=== PATIENT | male | born 1960 | race Caucasian/White ===

== ENCOUNTER 2022-01-20 15:34 | Emergency (ER) | payer BC, SELFPAY ==
[2022-01-20] VITALS (8 sets, daily range): BP systolic 108–151; BP diastolic 56–107; PULSE 83–89; RESP 16–20; TEMP 36.7; O2SAT 95–99; BMI 27.1
--- NOTE | 2022-01-20 15:57 | EKG12_ITS ---
Test Reason : sob Blood Pressure : / mmHG Vent. Rate : 100 BPM Atrial Rate : 100 BPM P-R Int : 154 ms QRS Dur : 082 ms QT Int : 398 ms P-R-T Axes : 067 061 048 degrees QTc Int : 513 ms Normal sinus rhythm Right atrial enlargement (POSSIBLE) Prolonged QT Abnormal ECG Confirmed by KIARRA MOYER, REHANA ([id number]), general expeditor TIM FULLER ([id number]) on 01/21/2022 10:40:33 AM Referred By: Sherley Confirmed By:REHANA PLUNKETT MD
--- NOTE | 2022-01-20 15:59 | EDS_ITS ---
HPI History of Present Illness Chief Complaint: Shortness of Breath Informant: patient and spouse/S.O. Narrative Narrative: Patient sent from urgent care reported pneumonia. He was not hypoxic. Patient reports having dyspnea worsening since Thursday. Mild cough. Since Thursday having chills and sweats. Also having headaches. He had nausea and vomiting episode however states has dentures and may have gagged himself. No diarrhea. No urinary symptoms. 1 pack/day smoker. No diagnosed COPD or asthma. Using Tylenol alternating with ibuprofen last medicine was ibuprofen at 11 PM. Feeling chills currently. Reported had a chest x-ray noting large pneumonia therefore sent here. No COVID testing obtained. He denies any past medical history. [facility] Home Medications cefdinir 300 mg capsule 300 mg PO BID #13 caps 01/20/22 [Rx Last Taken Unknown] Allergy/AdvReac Type Severity Reaction Status Date / Time erythromycin base Allergy Rash Verified 01/20/22 15:36 [Erythromycin Base] Social History Smoking Status: Former smoker ROS ROS ED Constitutional Constitutional ED: Reports chills and sweats; Denies fever(s) Eyes Eyes: Denies change in vision ENT ENT ED: Denies dysphagia or sore throat Cardiovascular Cardiovascular: Denies chest pain, leg edema, palpitations or racing heartbeat Respiratory/Chest Respiratory/Chest: Reports cough and dyspnea; Denies dyspnea on exertion Gastrointestinal Gastrointestinal: Denies abdominal pain, diarrhea, nausea or vomiting Genitourinary Genitourinary ED: Denies dysuria, hematuria or urinary frequency Musculoskeletal Musculoskeletal: Denies back pain, extremity pain or neck pain Integumentary Denies rash or wounds Neurologic Neurologic: Denies headache(s), paresthesias or weakness EXAM Physical Exam Const Vital Signs: 01/20/22 15:37 01/20/22 15:40 01/20/22 15:54 Temperature 98.1 F 98.1 F Temperature Source Temporal Temporal Pulse Rate 83 83 Respiratory Rate 16 16 Respiratory Effort Short of Breath Respiratory Depth Normal Respiratory Pattern Normal Blood Pressure 151/107 H 151/107 H Blood Pressure Mean 121 Pulse Ox 97 97 Oxygen Delivery Method Room Air Room Air Room Air 01/20/22 16:36 01/20/22 17:00 01/20/22 16:40 Temperature 98.1 F Temperature Source Temporal Pulse Rate 85 86 86 Respiratory Rate 20 H 16 16 Respiratory Effort Respiratory Depth Respiratory Pattern Blood Pressure 111/56 L 115/64 115/64 Blood Pressure Mean 74 81 Pulse Ox 95 95 95 Oxygen Delivery Method Room Air Room Air Room Air 01/20/22 17:36 Temperature Temperature Source Pulse Rate 89 Respiratory Rate 16 Respiratory Effort Respiratory Depth Respiratory Pattern Blood Pressure 108/65 Blood Pressure Mean Pulse Ox 99 Oxygen Delivery Method Positive well nourished and well developed Constitutional Narrative: Nontoxic, shivering General Appearance ED: well developed and NAD HEENT Reports moist mucous membranes normocephalic and atraumatic Eyes PERRL, EOMs intact bilaterally and conjunctivae normal General Eye ED: Yes normal appearance of both eyes Neck no lymphadenopathy and supple General: Negative for tenderness Chest Wall Chest: Negative for tenderness Resp normal respiratory effort and normal air movement Effort and Inspection: symmetric chest movement; Negative for respiratory distress Cardio regular rate, regular rhythm and no murmurs Peripheral Pulses: pulses 2+ throughout GI normal to inspection, nondistended, normoactive bowel sounds and non-tender Palpation: Negative for guarding or rebound tenderness present Back/Spine no CVA tenderness and no thoracic nor lumbar tenderness Extremity normal to inspection General Extremety ED: Negative for edema or tenderness General Extremity: Negative for edema Neuro oriented x3 and no sensory deficits noted Sensorium / Orientation: awake and alert Skin no rashes or lesions noted and no wounds MDM MDM MDM Narrative Medical decision making narrative: Patient noted slight shivering, nontoxic pulse ox stable afebrile no respiratory distress. I did check labs due to his symptoms white count 13.7. Sodium 129, creatinine 1.39. Chest x-ray reviewed by myself and read by radiology notes a left upper lobe pneumonia. COVID testing returned negative. Clinically stable. He is started on Omnicef twice a day for 7 days. Return precautions. Lab Data Attestation: I reviewed the patient's lab results. Labs: Laboratory Results - last 24 hr 01/20/22 01/20/22 16:07 16:07 WBC 13.7 H RBC 4.90 Hgb 14.9 Hct 42.8 MCV 87.3 MCH 30.4 MCHC 34.8 RDW Std Deviation 42.4 RDW Coeff of Enriqueta 13.2 Plt Count 139 L MPV 9.9 Immature Gran % (Auto) 0.800 Neut % (Auto) 79.1 H Lymph % (Auto) 11.0 L [place] % (Auto) 8.9 Eos % (Auto) 0.0 Baso % (Auto) 0.2 Absolute Neuts (auto) 10.9 H Absolute Lymphs (auto) 1.51 Nucleated RBC % 0 Sodium 129 L Potassium 4.3 Chloride 95 L Carbon Dioxide 25.0 Anion Gap 9 BUN 20 H Creatinine 1.39 H Estim Creat Clear Calc 62.03 Est GFR (MDRD) Af Amer 67 Est GFR (MDRD) Non-Af 55 L BUN/Creatinine Ratio 14.4 Glucose 106 Calcium 9.5 Troponin I High Sens 7 Radiography Diagnostic Testing: Clinical Impression(s) from Imaging Studies Chest X-Ray 01/20/22 16:10 IMPRESSION: Left upper lobe pneumonia. Electronically Signed: West Haines MD at 16:23 EDT , EKG Initial EKG: Attestation: I personally reviewed and interpreted this EKG as follows: Comments: Sinus rate of 100, no ST or T wave changes, artifact noted at baseline. Discharge Plan Triage Chief Complaint: Shortness of Breath ED Provider: Ochoa Lepe Dx/Rx/DC Orders Clinical Impression: Community acquired pneumonia, Tobacco dependence, Acute hyponatremia Instructions: ED Pneumonia (Adult) Prescriptions: New cefdinir 300 mg capsule 300 mg PO BID Qty: 13 0RF Primary Care Provider: Artie Alvarez Referrals: Artie Alvarez MD [Primary Care Provider] - 3-5 Days Activity Restrictions/Additional Instructions: MARCIAL pneumonia. covid and flu negative. take antibiotic as prescribed. return if any worsening respiratory symptoms. Disposition Disposition: Home, Self Care Discharge Date/Time: 01/20/22 17:36
[2022-01-20] MEDS: Acetaminophen 500 MG Tablet 1000 MG PO (16:01)
--- NOTE | 2022-01-20 16:10 | RAD_ITS ---
STUDY: X-RAY CHEST REASON FOR EXAM: Male, 61 years old. sob TECHNIQUE: Single AP portable view of the chest. COMPARISON: 05/27/2013 FINDINGS: Alveolar opacity in the upper left lung consistent with left upper lobe pneumonia. There is no demonstrated pleural abnormality. Normal size heart. Normal mediastinum and sergio. Normal visualized pulmonary arteries. Normal visualized aortic arch and descending thoracic aorta. Normal visualized thoracic spine. Normal visualized ribs, clavicles, and shoulders. There is no demonstrated abnormality of the visualized soft tissue structures of the upper abdomen. RAD/Chest 1 View (Portable) IMPRESSION: Left upper lobe pneumonia. Electronically Signed: West Haines MD at 16:23 EDT ,
[2022-01-20 16:14] LABS: Absolute Lymphocyte Count 1.51 X10^3/uL (0.83-4.51); Absolute Neutrophil Count 10.9 X10^3/uL (2.0-7.7); Basophil# 0.03 X10^3/uL; Basophil% 0.2 % (0-1); Hematocrit 42.8 % (40-54); Hemoglobin 14.9 g/dL (13.0-16.5); Lymphocyte # 1.51 X10^3/ul (0.83-4.51); Mean Corp Hgb Conc 34.8 g/dL (32-36); Mean Corpuscular Hgb 30.4 pg (27.0-32.0); Mean Corpuscular Volume 87.3 fL (80-94); Mean Platelet Vol. 9.9 fl (6.2-12.0); Monocyte# 1.22 X10^3/uL; Monocyte% 8.9 % (0-10); NRBC Flagged by Analyzer 0 % (0-5); Neutrophil # 10.87 X10^3/uL (2.7-7.7); Neutrophil % 79.1 % (47-70); Platelet Count 139 K/mm3 (150-450); RBC Distribution Width CV 13.2 % (11.6-14.6); RBC Distribution Width SD 42.4 fl (35.1-43.9); White Blood Count 13.7 K/mm3 (4.4-11.0)
[2022-01-20 16:39] LABS: Anion Gap 9 (5-15); BUN 20 mg/dL (7-18); BUN/Creat Ratio 14.4 RATIO (10-20); Calcium,Total 9.5 mg/dL (8.5-10.1); Chloride 95 mmol/L (98-107); Creatinine, Serum 1.39 mg/dL (0.70-1.30); EST Glomerular Filtration Rate 55 mL/min (>60); Est Glom Filt Rate - Afr Amer 67 mL/min (>60); Estimated Creatinine Clearance 62.03 ml/min; Glucose 106 mg/dL (74-106); Potassium 4.3 mmol/L (3.5-5.1); Sodium Level 129 mmol/L (136-145); Troponin-I HS (w/2H Reflex) 7 pg/mL (3.0-78.0)
[2022-01-20] MEDS: Cefdinir 300 MG Capsule PO (17:35)
[2022-01-20 18:11] LABS: Reflex Troponin-HS? (from REC) Y
== END 2022-01-20 17:36 | disposition home or self-care (01) ==
PROVIDERS: Emergency Provider Emergency Medicine; PCP Family Medicine; Visit Provider Emergency Medicine
DX: J18.9 Pneumonia, unspecified organism (principal); E87.1 Hypo-osmolality and hyponatremia; Z87.891 Personal history of nicotine dependence
CPT/HCPCS: 71045; 80048; 84484; 85025; 87428; 93005; 99285; A4216

== ENCOUNTER 2022-01-28 09:54 | Emergency (ER) | payer BC, SELFPAY ==
[2022-01-28 09:55] VITALS: BP 120/72; PULSE 78; RESP 18; TEMP 36.6; O2SAT 99; BMI 25.7
--- NOTE | 2022-01-28 10:41 | EKG12_ITS ---
Test Reason : Blood Pressure : / mmHG Vent. Rate : 062 BPM Atrial Rate : 062 BPM P-R Int : 154 ms QRS Dur : 094 ms QT Int : 438 ms P-R-T Axes : 060 045 012 degrees QTc Int : 444 ms Normal sinus rhythm Normal ECG Confirmed by KIARRA MOYER, REHANA ([id number]), newspaper editor NICOLE CLARK ([id number]) on 01/30/2022 12:48:59 PM Referred By: Leia Confirmed By:REHANA PLUNKETT MD
--- NOTE | 2022-01-28 10:42 | EX.ED.DYSGE1 ---
HPI History of Present Illness Chief Complaint: Shortness of Breath Informant: patient and spouse/S.O. Onset/Context/Timing Onset: Weeks (1.5) Context: Gradual Onset Timing: Continuous Quality: malaise/weak, cough, LOYA Current Severity: Moderate Maximum Severity: Moderate Worsened by: activity, exertion Relieved by: rest Associated Symptoms Associated Symptoms: myalgias, fevers, chills Narrative Narrative: Patient was seen here 1 week ago for this illness and diagnosed with pneumonia, he was put on an antibiotic, he states none of his symptoms are any better. He was going to try to follow-up with his PCP, however they said something about not being there for a while and not being able to see him. He is not dyspneic when he is at rest. He does have dyspnea with exertion and feels worn out with very little activity. Due to having fevers and chills throughout the day every day, the states she is concerned that he has been taking 1000 mg of Tylenol every 4 hours basically throughout the day every day. He denies any GI symptoms. They have noticed no jaundice. PFSH PFSH Medical History no medical history no medical history Home Medications cefdinir 300 mg capsule 300 mg PO BID #13 caps 01/20/22 [Rx Last Taken Unknown] levofloxacin 750 mg tablet 750 mg PO DAILY #4 tabs 01/28/22 [Rx Last Taken Unknown] Allergy/AdvReac Type Severity Reaction Status Date / Time erythromycin base Allergy Rash Verified 01/28/22 09:57 [Erythromycin Base] Social History Smoking Status: Former smoker ROS ROS ED Constitutional Constitutional ED: Reports chills, fever(s) and sweats Eyes Eyes: Denies change in vision or diplopia ENT ENT ED: Denies rhinorrhea or sore throat Cardiovascular Cardiovascular: Denies chest pain, orthopnea or palpitations Respiratory/Chest Respiratory/Chest: Reports cough and dyspnea on exertion; Denies orthopnea Gastrointestinal Gastrointestinal: Denies abdominal pain, diarrhea, nausea or vomiting Genitourinary Genitourinary ED: Denies dysuria or hematuria Musculoskeletal Musculoskeletal: Reports myalgias; Denies back pain or neck pain Integumentary Denies abscess or rash Neurologic Neurologic: Denies headache(s), paresthesias or weakness Psychiatric Psychiatric: Denies anxiety or suicidal thoughts EXAM Physical Exam Const Vital Signs: 01/28/22 09:55 01/28/22 10:30 01/28/22 11:06 Temperature 98 F Temperature Source Temporal Pulse Rate 78 Respiratory Rate 18 Respiratory Effort Normal Non-Labored Respiratory Depth Normal Respiratory Pattern Normal Blood Pressure 120/72 Blood Pressure Mean 88 Pulse Ox 99 Oxygen Delivery Method Room Air Room Air Room Air Positive well nourished and well developed Constitutional Narrative: Appears malaised but in no distress. Able to converse in full sentences. General Appearance ED: well developed and NAD HEENT Reports moist mucous membranes normocephalic and atraumatic Eyes PERRL and EOMs intact bilaterally Neck full ROM, no lymphadenopathy and supple Resp normal respiratory effort and clear to auscultation bilaterally Cardio regular rate, regular rhythm and no murmurs Rate: Negative for tachycardic GI non-tender and non-distended Auscultation: normoactive bowel sounds Palpation: soft Back/Spine no CVA tenderness General Back: other FROM Extremity normal to inspection General Extremety ED: Negative for edema, pulses abnormal or tenderness General Extremity: Negative for edema or pulses abnormal Neuro oriented x3, CN's II-XII intact bilaterally and no sensory deficits noted Sensorium / Orientation: awake and alert Motor Exam: strength 5/5 throughout Psych mental status grossly normal Skin no rashes or lesions noted and no wounds MDM MDM MDM Narrative Medical decision making narrative: Septic work-up performed on this gentleman, on my interpretation is 2 view chest x-ray shows worsening left-sided pneumonia, which the radiologist is in agreement with. Blood culture sent. His lactate and white blood count are within normal limits, his white count was elevated when he was diagnosed. Clearly the cefdinir is not doing the trick here. We ambulated him, he did extremely well and did not become very dyspneic nor did he become hypoxic, he basically did not go below 96% on room air. Offered admission but he declines and prefers to be treated at home as long as that is okay, I think placing him on Levaquin would be reasonable here to cover for a different spectrum of organisms including atypicals. He was given a dose of IV 750 in the ER and we will discharge him home for the next 4 days. Patient states that his old PCP will not see him anymore and he is asking for a new one so he was referred to the next physician on the unassigned list. Lab Data Attestation: I reviewed the patient's lab results. Labs: Laboratory Results - last 24 hr 01/28/22 01/28/22 01/28/22 10:15 10:15 10:55 WBC 9.7 RBC 4.01 L Hgb 12.2 L Hct 34.9 L MCV 87.0 MCH 30.4 MCHC 35.0 RDW Std Deviation 47.2 H RDW Coeff of Enriqueta 14.6 Plt Count 379 MPV 10.3 Immature Gran % (Auto) 1.000 H Neut % (Auto) 69.6 Lymph % (Auto) 21.7 [place] % (Auto) 6.7 Eos % (Auto) 0.7 Baso % (Auto) 0.3 Absolute Neuts (auto) 6.8 Absolute Lymphs (auto) 2.11 Nucleated RBC % 0 Sodium 134 L Potassium 3.4 L Chloride 101 Carbon Dioxide 26.0 Anion Gap 7 BUN 17 Creatinine 0.91 Estim Creat Clear Calc 94.75 Est GFR (MDRD) Af Amer 110 Est GFR (MDRD) Non-Af 91 BUN/Creatinine Ratio 18.8 Glucose 112 H Lactic Acid 1.3 Calcium 9.2 Total Bilirubin 1.80 H Direct Bilirubin 0.51 H AST 135 H ALT 152 H Alkaline Phosphatase 107 Troponin I High Sens 4 Total Protein 6.4 Albumin 2.4 L Globulin 4.0 Albumin/Globulin Ratio 0.6 L Radiography Chest X-Ray - ED: 2 View, Read by ED Physician and Left Infiltrate Diagnostic Testing: Clinical Impression(s) from Imaging Studies Chest X-Ray 01/28/22 11:00 IMPRESSION: Progressive left upper lobe infiltrate. Electronically Signed: Gideon Pompa MD at 11:14 EDT , Rhythm Strip Rhythm Strip: Sinus Rhythm Rate: 65 Ectopy: None EKG Initial EKG: Attestation: I personally reviewed and interpreted this EKG as follows: Interpretation: Sinus Rhythm and No Acute Injury Pattern Comments: normal EKG Discharge Plan Triage Chief Complaint: Shortness of Breath ED Provider: Trenton Dupree Dx/Rx/DC Orders Clinical Impression: Worsening pneumonia Instructions: ED Pneumonia (Adult) Prescriptions: New levofloxacin 750 mg tablet 750 mg PO DAILY Qty: 4 0RF Rx Instructions: start 01/29 No Action cefdinir 300 mg capsule 300 mg PO BID Qty: 13 0RF Primary Care Provider: Care Physician,No Primary Referrals: Nikita Melo DO [Med Staff - Call Worker] - 3-5 Days Disposition Disposition: Home, Self Care
[2022-01-28] MEDS: 0.9% Normal Saline 1,000 ML 150 ML IV (10:56)
[2022-01-28 10:59] LABS: Absolute Lymphocyte Count 2.11 X10^3/uL (0.83-4.51); Absolute Neutrophil Count 6.8 X10^3/uL (2.0-7.7); Basophil# 0.03 X10^3/uL; Basophil% 0.3 % (0-1); Eosinophil# 0.07 X10^3/uL; Eosinophils% 0.7 % (0-5); Hematocrit 34.9 % (40-54); Hemoglobin 12.2 g/dL (13.0-16.5); Lymphocyte # 2.11 X10^3/ul (0.83-4.51); Lymphocyte % 21.7 % (19-41); Mean Corpuscular Hgb 30.4 pg (27.0-32.0); Mean Platelet Vol. 10.3 fl (6.2-12.0); Monocyte# 0.65 X10^3/uL; Monocyte% 6.7 % (0-10); NRBC Flagged by Analyzer 0 % (0-5); Neutrophil # 6.77 X10^3/uL (2.7-7.7); Neutrophil % 69.6 % (47-70); Platelet Count 379 K/mm3 (150-450); RBC Distribution Width CV 14.6 % (11.6-14.6); RBC Distribution Width SD 47.2 fl (35.1-43.9); Red Blood Count 4.01 M/mm3 (4.6-6.2); White Blood Count 9.7 K/mm3 (4.4-11.0)
--- NOTE | 2022-01-28 11:00 | RAD_ITS ---
STUDY: X-RAY CHEST REASON FOR EXAM: Male, 61 years old. Check progression of pneumonia TECHNIQUE: PA and lateral views of the chest. COMPARISON: Comparison is made with prior study dated 01/20/2022. FINDINGS: EKG electrodes are seen. Since prior study, there has been progressive infiltration in the left upper lobe. The right lung is clear. There is no demonstrated pleural abnormality. Normal size heart. Normal mediastinum and sergio. Normal visualized pulmonary arteries. Normal visualized aortic arch and descending thoracic aorta. Normal visualized thoracic spine. Normal visualized ribs, clavicles, and shoulders. There is no demonstrated abnormality of the visualized soft tissue structures of the upper abdomen. RAD/Chest PA and Lateral IMPRESSION: Progressive left upper lobe infiltrate. Electronically Signed: Gideon Pompa MD at 11:14 EDT ,
[2022-01-28 11:29] LABS: ALB/GLOB Ratio 0.6 RATIO (0.9-2.4); AST(SGOT) 135 U/L (15-37); Alanine Aminotransfer ALT/SGPT 152 U/L (16-61); Albumin, Serum 2.4 g/dL (3.2-5.0); Alkaline Phosphatase 107 U/L (45-117); Anion Gap 7 (5-15); BUN 17 mg/dL (7-18); BUN/Creat Ratio 18.8 RATIO (10-20); Bilirubin, Direct 0.51 mg/dL (0.00-0.30); Calcium,Total 9.2 mg/dL (8.5-10.1); Chloride 101 mmol/L (98-107); Creatinine, Serum 0.91 mg/dL (0.70-1.30); EST Glomerular Filtration Rate 91 mL/min (>60); Est Glom Filt Rate - Afr Amer 110 mL/min (>60); Estimated Creatinine Clearance 94.75 ml/min; Glucose 112 mg/dL (74-106); Potassium 3.4 mmol/L (3.5-5.1); Protein, Total 6.4 g/dL (6.4-8.2); Sodium Level 134 mmol/L (136-145); Troponin-I HS 4 pg/mL (3.0-78.0)
[2022-01-28 11:43] LABS: Lactic Acid 1.3 mmol/L (0.4-1.9)
[2022-01-28 12:07] VITALS: O2SAT 99
[2022-01-28] MEDS: levoFLOXacin IV 750 MG/150 ML BAG 100 MG IV (12:20)
== END 2022-01-28 14:17 | disposition home or self-care (01) ==
PROVIDERS: Emergency Provider Emergency Medicine; Visit Provider Emergency Medicine
DX: J18.9 Pneumonia, unspecified organism (principal); Z87.891 Personal history of nicotine dependence
CPT/HCPCS: 71046; 80053; 80076; 83605; 84484; 85025; 87040; 87086; 93005; 96365; 96366; 99284; J7030; A4216

== ENCOUNTER 2022-02-16 19:54 | Observation (INO) | payer BC, SELFPAY ==
[2022-02-16] VITALS (9 sets, daily range): BP systolic 112–152; BP diastolic 44–77; PULSE 75–85; RESP 18–22; TEMP 36.6–37.1; O2SAT 93–99; BMI 26.8; BMI 26.7
--- NOTE | 2022-02-16 20:17 | EKG12_ITS ---
Test Reason : sob Blood Pressure : / mmHG Vent. Rate : 082 BPM Atrial Rate : 082 BPM P-R Int : 152 ms QRS Dur : 090 ms QT Int : 372 ms P-R-T Axes : 066 047 017 degrees QTc Int : 434 ms Poor data quality, interpretation may be adversely affected Normal sinus rhythm Normal ECG Confirmed by PAU MOYER, JENNIFER ([id number]), editor managing director NICOLE CLARK ([id number]) on 02/17/2022 2:01:32 PM Referred By: Confirmed By:JENNIFER MAI MD
--- NOTE | 2022-02-16 20:20 | EDS_ITS ---
HPI History of Present Illness Chief Complaint: Shortness of Breath Informant: patient and spouse/S.O. Onset/Context/Timing Onset: Days Context: Gradual Onset Narrative Narrative: Patient was recently treated with cefdinir followed by Levaquin for left-sided pneumonia. Patient states he was outside doing yard work yesterday. He became very fatigued last evening. Today's had increased shortness of breath and cough. He reports a temperature of 100.9 at home. He feels as if he is wheezing. He denies history of asthma or COPD. He was a smoker just quitting with his recent illness. PFSH PFS Medical History no medical history no medical history Home Medications NK 02/16/22 [History Last Taken Unknown] Allergy/AdvReac Type Severity Reaction Status Date / Time erythromycin base Allergy Rash Verified 02/16/22 19:58 [Erythromycin Base] Social History Smoking Status: Former smoker ROS ROS ED Constitutional Constitutional ED: Reports fever(s); Denies chills Eyes Eyes: Denies change in vision or discharge from eye(s) ENT ENT ED: Denies discharge from eye(s), rhinorrhea or sore throat Cardiovascular Cardiovascular: Reports chest pain; Denies palpitations Respiratory/Chest Respiratory/Chest: Reports cough, dyspnea and other Details: Wheezing Gastrointestinal Gastrointestinal: Denies abdominal pain, diarrhea, nausea or vomiting Genitourinary Genitourinary ED: Denies dysuria Musculoskeletal Musculoskeletal: Denies back pain or extremity pain Integumentary Denies Abrasions or rash Neurologic Neurologic: Denies headache(s) or weakness Psychiatric Psychiatric: Denies anxiety or depression Allergic/Immunologic Allergic/Immunologic ED: Denies lip swelling or urticaria EXAM Physical Exam Const Vital Signs: 02/16/22 19:55 02/16/22 20:03 02/16/22 21:26 Temperature 98 F Temperature Source Temporal Pulse Rate 83 83 Respiratory Rate 20 H 22 H Respiratory Effort Normal Respiratory Depth Normal Respiratory Pattern Normal Blood Pressure 152/77 H 113/59 L Blood Pressure Mean 102 77 Pulse Ox 99 95 Oxygen Delivery Method Room Air Room Air Positive well nourished and well developed General Appearance ED: well developed HEENT Reports normocephalic and head/scalp atraumatic Eyes PERRL and EOMs intact bilaterally Neck supple Chest Wall inspection of chest normal and palpation of chest normal Resp normal respiratory effort Resp Narrative: Expiratory wheezes with rhonchi. Cardio regular rate and regular rhythm GI normal to inspection, nondistended, normoactive bowel sounds Palpation: soft Extremity normal to inspection Neuro oriented x3 and no sensory deficits noted Sensorium / Orientation: alert Motor Exam: strength 5/5 throughout Psych mental status grossly normal Skin no rashes or lesions noted MDM MDM MDM Narrative Medical decision making narrative: Patient given Solu-Medrol along with aerosols. Lab work obtained, blood cultures, chest x-ray. Lab Data Attestation: I reviewed the patient's lab results. Labs: Laboratory Results - last 24 hr 02/16/22 02/16/22 20:32 20:32 WBC 12.1 H RBC 3.76 L Hgb 11.4 L Hct 34.6 L MCV 92.0 MCH 30.3 MCHC 32.9 RDW Std Deviation 54.5 H RDW Coeff of Enriqueta 16.1 H Plt Count 143 L MPV 9.3 Immature Gran % (Auto) 1.400 H Neut % (Auto) 64.6 Lymph % (Auto) 20.2 [place] % (Auto) 11.4 H Eos % (Auto) 2.0 Baso % (Auto) 0.4 Absolute Neuts (auto) 7.8 H Absolute Lymphs (auto) 2.44 Nucleated RBC % 0 Sodium 133 L Potassium 3.5 Chloride 100 Carbon Dioxide 27.0 Anion Gap 6 BUN 10 Creatinine 0.95 Estim Creat Clear Calc 90.76 Est GFR (MDRD) Af Amer 104 Est GFR (MDRD) Non-Af 86 BUN/Creatinine Ratio 10.5 Glucose 97 Calcium 8.1 L Radiography Chest X-Ray - ED: 1 View, Read by ED Physician and Left Infiltrate (Worsening left infiltrate compared to prior.) Diagnostic Testing: Clinical Impression(s) from Imaging Studies Chest X-Ray 02/16/22 20:41 IMPRESSION: Left upper lobe pneumonia. Electronically Signed: West Haines MD at 21:10 EDT , EKG Initial EKG: Attestation: I personally reviewed and interpreted this EKG as follows: Interpretation: Sinus Rhythm (Sinus at 82 with no acute ischemia.) Treatment and Re-Evaluation Narrative: Lab work reveals white count of 12.1 with no significant left shift. Chemistry studies reveal a sodium of 133 and bicarb of 27. Chest x-ray per my interpretation reveals worsening left-sided infiltrate. Radiology interpretation is reviewed and agrees. Blood cultures have been obtained. Patient is given Zosyn and vancomycin. He will require hospitalization for IV antibiotics. I will speak with the hospitalist. Discharge Plan Triage Chief Complaint: Shortness of Breath ED Provider: Bhumika Coronel Dx/Rx/DC Orders Clinical Impression: Pneumonia, Failure of outpatient treatment Prescriptions: No Action NK Primary Care Provider: Nikita Melo Referrals: Nikita Melo [Primary Care Provider] - Disposition Disposition: Acute Care Hospital [facility]
[2022-02-16] MEDS: MethylPREDNISolone 125 MG/2 ML Vial IV (20:39)
[2022-02-16 20:40] LABS: Absolute Lymphocyte Count 2.44 X10^3/uL (0.83-4.51); Absolute Neutrophil Count 7.8 X10^3/uL (2.0-7.7); Basophil# 0.05 X10^3/uL; Basophil% 0.4 % (0-1); Eosinophil# 0.24 X10^3/uL; Hematocrit 34.6 % (40-54); Hemoglobin 11.4 g/dL (13.0-16.5); Lymphocyte # 2.44 X10^3/ul (0.83-4.51); Lymphocyte % 20.2 % (19-41); Mean Corp Hgb Conc 32.9 g/dL (32-36); Mean Corpuscular Hgb 30.3 pg (27.0-32.0); Mean Platelet Vol. 9.3 fl (6.2-12.0); Monocyte# 1.38 X10^3/uL; Monocyte% 11.4 % (0-10); NRBC Flagged by Analyzer 0 % (0-5); Neutrophil % 64.6 % (47-70); Platelet Count 143 K/mm3 (150-450); RBC Distribution Width CV 16.1 % (11.6-14.6); RBC Distribution Width SD 54.5 fl (35.1-43.9); Red Blood Count 3.76 M/mm3 (4.6-6.2); White Blood Count 12.1 K/mm3 (4.4-11.0)
--- NOTE | 2022-02-16 20:41 | RAD_ITS ---
STUDY: X-RAY CHEST REASON FOR EXAM: Male, 61 years old. sob TECHNIQUE: Single AP portable view of the chest. COMPARISON: 01/28/2022 FINDINGS: Alveolar opacity in the upper left lung consistent with left upper lobe pneumonia. There is no demonstrated pleural abnormality. Normal size heart. Normal mediastinum and sergio. Normal visualized pulmonary arteries. Normal visualized aortic arch and descending thoracic aorta. Normal visualized thoracic spine. Normal visualized ribs, clavicles, and shoulders. There is no demonstrated abnormality of the visualized soft tissue structures of the upper abdomen. RAD/Chest 1 View (Portable) IMPRESSION: Left upper lobe pneumonia. Electronically Signed: West Haines MD at 21:10 EDT ,
[2022-02-16] MEDS: Albuterol 2.5 MG/3 ML VIAL.NEB. INHALATION ×2 (20:49)
[2022-02-16 20:54] LABS: Anion Gap 6 (5-15); BUN 10 mg/dL (7-18); BUN/Creat Ratio 10.5 RATIO (10-20); Calcium,Total 8.1 mg/dL (8.5-10.1); Chloride 100 mmol/L (98-107); Creatinine, Serum 0.95 mg/dL (0.70-1.30); EST Glomerular Filtration Rate 86 mL/min (>60); Est Glom Filt Rate - Afr Amer 104 mL/min (>60); Estimated Creatinine Clearance 90.76 ml/min; Glucose 97 mg/dL (74-106); Potassium 3.5 mmol/L (3.5-5.1); Sodium Level 133 mmol/L (136-145)
[2022-02-16] MEDS: Ipratropium/Albuterol Sulfate 3 ML AMPUL.NEB INHALATION (21:40)
--- NOTE | 2022-02-16 22:52 | PCM.HP.STD ---
[facility] - General General Date of Admission: 02/16/22 Date of Service: 02/16/22 Chief Complaint: Fever, cough, fatigue, dyspnea on exertion and wheezing for last 2 days. Recent episode of pneumonia in January. HPI Narrative TOMAS MCDERMOTT, is a 61 M who came to ED for shortness of breath on exertion, fatigue, fever and cough for last 2 days. His temperature at home was 100.9 Fahrenheit. Patient first came to ER on 01/20 and found to have left upper lobe pneumonia on chest x-ray with leukocytosis and was discharged on Omnicef for 7 days. Pneumonia did get better he came back on 01/28, and he was not hypoxic or dyspneic and was given Levaquin 750 mg IV and discharged for Levaquin 750 mg p.o. for 4 more days. Patient's symptoms of cough got better but acute yesterday started feeling feverish cough and wheezing. He said his fatigue never went away and he gets easily short of breath on lifting a small machine. 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 Patient is also feeling wheezing. He has a history of smoking, started at the age of 16, half pack per day but progressed to 2 packs/day in and then quit 3 weeks ago. He denies diagnosis of COPD/asthma. In ED, chest x-ray was done and is individually reviewed which shows worsening of left upper lobe pneumonia, interstitial type. Patient denies prior history of DVT/PE. Patient started on IV Rocephin and Zithromax and further admitted. [facility] Medical History Former smoker Medical History no medical history Home Medications NK 02/16/22 [History Last Taken Unknown] Allergy/AdvReac Type Severity Reaction Status Date / Time erythromycin base Allergy Rash Verified 02/16/22 19:58 [Erythromycin Base] Social History Smoking Status: Former smoker ROS ROS Narrative Constitutional: Reports fatigue and weakness. Mild fever HEENT: Reports systems reviewed and no addt'l complaints, except as documented Respiratory/Chest: Denies chest pain/pressure. Rest as mentioned in HPI Gastrointestinal: Denies coffee ground emesis, hematemesis or vomiting. No abdominal pain Genitourinary: Denies burning urination or new urinary tract symptoms Musculoskeletal: Denies joint pain and limited range of motion. No leg swelling Neurologic: Denies seizure-like activity skin: No ulcer. No rash Endocrinology: Reports systems reviewed and no addt'l complaints, except as documented Hematologic/Lymphatic: Reports systems reviewed and no addt'l complaints, except as documented Rest 14 ROS are negative except as mentioned in HPI Vital Signs Vital Signs Vital Signs: 02/16/22 19:55 02/16/22 20:03 02/16/22 21:26 Temperature 98 F Temperature Source Temporal Pulse Rate 83 83 Respiratory Rate 20 H 22 H Respiratory Effort Normal Respiratory Depth Normal Respiratory Pattern Normal Blood Pressure 152/77 H 113/59 L Blood Pressure Mean 102 77 Pulse Ox 99 95 Oxygen Delivery Method Room Air Room Air 02/16/22 22:39 Temperature 98.8 F Temperature Source Oral Pulse Rate 85 Respiratory Rate 22 H Respiratory Effort Respiratory Depth Respiratory Pattern Blood Pressure 112/44 L Blood Pressure Mean 66 Pulse Ox 93 Oxygen Delivery Method Room Air Weight Weight: 198 lb Body Mass Index (BMI) 26.8 Physical Exam Narrative General: Alert, Oriented x3, Cooperative HEENT: Atraumatic, PERRLA, EOMI, Normocephalic Oral: No Gingival or Mucosal Lesions/ Ulcerations Neck: Supple, No JVD, Negative Carotid Bruits Lungs: Air entry bilateral equal. Expiratory rhonchi and wheezing in left lung. Cardiovascular: Regular rate, Regular Rhythm, Normal S1, Normal S2, No murmurs Abdomen: Bowel Sounds Present, Soft, Non Tender, Non-Distended : No renal angle tenderness. No suprapubic tenderness. Extremities: No edema, Capillary Refill Less than 3 Seconds Skin: No rashes, No breakdown Musculoskeletal: No Tenderness to Palpation of Joints or Extremities Neurological: Cranial nerves II-XII grossly intact, DTR 2+/4 and Symmetrical, Neuro grossly intact Psych/Mental Status: Normal Affect, Appropriate. Results Lab / Micro Data Result Diagrams: 02/16/22 20:32 02/16/22 20:32 Labs: Laboratory Results - last 24 hr 02/16/22 20:32: WBC 12.1 H, RBC 3.76 L, Hgb 11.4 L, Hct 34.6 L, MCV 92.0, MCH 30.3, MCHC 32.9, RDW Std Deviation 54.5 H, RDW Coeff of Enriqueta 16.1 H, Plt Count 143 L, MPV 9.3, Immature Gran % (Auto) 1.400 H, Neut % (Auto) 64.6, Lymph % (Auto) 20.2, Harvey % (Auto) 11.4 H, Eos % (Auto) 2.0, Baso % (Auto) 0.4, Absolute Neuts (auto) 7.8 H, Absolute Lymphs (auto) 2.44, Nucleated RBC % 0 02/16/22 20:32: Sodium 133 L, Potassium 3.5, Chloride 100, Carbon Dioxide 27.0, Anion Gap 6, BUN 10, Creatinine 0.95, Estim Creat Clear Calc 90.76, Est GFR (MDRD) Af Amer 104, Est GFR (MDRD) Non-Af 86, BUN/Creatinine Ratio 10.5, Glucose 97, Calcium 8.1 L Micro: Microbiology 02/16/22 20:43 Nasal Secretion SARS-CoV-2 Antigen (Rapid) - Final Radiology Impression Chest X-Ray 02/16/22 20:41 IMPRESSION: Left upper lobe pneumonia. Electronically Signed: West Haines MD at 21:10 EDT , Assessment & Plan Assessment/Plan (1) Pneumonia: (2) Failure of outpatient treatment: PLAN: This is 61-year-old gentleman admitted with shortness of breath, fever, fatigue and cough and chest x-ray finding consistent with pneumonia and history suggestive of nonresolving pneumonia. Patient Has symptoms and signs and chest x-ray findings pneumonia for about 1 month. 1. None resolving left upper lobe pneumonia: Patient is being admitted on MedSurg floor. Not hypoxic or tachypneic. Patient has mild leukocytosis. Chest x-ray individually reviewed and shows worsening of pneumonic infiltrate mainly in left upper lobe lobe lung. CTPA chest is done looking for other differential diagnosis. As patient failed Omnicef, Levaquin is a started on IV vancomycin and Levaquin for consideration of possible MRSA and Pseudomonas. DuoNeb as needed for shortness of breath and wheezing. DuoNeb as needed, Mucinex, incentive spirometry and Pep. Liver chemistry ordered. Lactic acid, blood cultures x2, respiratory panel, , MRSA nasal screen, urinary antigens are ordered. COVID PCR ordered 2. Prolonged history of smoking: Chest x-ray from 01/20 reviewed and shows dense infiltrate in left upper lobe and worsening. Patient has about 60 pack years of smoking, about 2-pack-per day mother is working in . Suspicion for neoplastic lesion in left upper lobe. Never had PFT or pulmonary clinic follow-up 3. Denies coronary artery disease, stroke, peripheral artery disease, hypertension diabetes mellitus type 2 : Glucose 97 on BMP. VT prophylaxis: Lovenox 40 mg subcu daily. Discontinue if platelet count drops less than 50,000 or hemoglobin less than 8 g% Microbiology Past 72 Hours 02/16/22 20:43 Nasal Secretion SARS-CoV-2 Antigen (Rapid) - Final Laboratory Results 02/16/22 20:32: WBC 12.1 H, RBC 3.76 L, Hgb 11.4 L, Hct 34.6 L, MCV 92.0, MCH 30.3, MCHC 32.9, RDW Std Deviation 54.5 H, RDW Coeff of Enriqueta 16.1 H, Plt Count 143 L, MPV 9.3, Immature Gran % (Auto) 1.400 H, Neut % (Auto) 64.6, Lymph % (Auto) 20.2, Harvey % (Auto) 11.4 H, Eos % (Auto) 2.0, Baso % (Auto) 0.4, Absolute Neuts (auto) 7.8 H, Absolute Lymphs (auto) 2.44, Nucleated RBC % 0 02/16/22 20:32: Sodium 133 L, Potassium 3.5, Chloride 100, Carbon Dioxide 27.0, Anion Gap 6, BUN 10, Creatinine 0.95, Estim Creat Clear Calc 90.76, Est GFR (MDRD) Af Amer 104, Est GFR (MDRD) Non-Af 86, BUN/Creatinine Ratio 10.5, Glucose 97, Calcium 8.1 L 02/17/22 00:16: Phosphorus Pending, Magnesium Pending, Total Bilirubin Pending, Direct Bilirubin Pending, AST Pending, ALT Pending, Alkaline Phosphatase Pending, Total Protein Pending, Albumin Pending 02/17/22 00:16: Lactic Acid Pending 02/17/22 00:30: MRSA (PCR) Pending Clinical Impression(s) from Imaging Studies Chest X-Ray 02/16/22 20:41 IMPRESSION: Left upper lobe pneumonia. Electronically Signed: West Haines MD at 21:10 EDT , Charges/Coding Visit Charges OBSV E&M: 50524 Initial observation care L3 Procedures Hospitalists Procedures: 17314 Advncd Care Plan 30 Min
[2022-02-17] VITALS (14 sets, daily range): BP systolic 114–127; BP diastolic 53–65; PULSE 72–96; RESP 16–23; TEMP 36.4–36.6; O2SAT 91–98
[2022-02-17] MEDS: guaiFENesin 1,200 MG Tablet 1200 MG PO ×3 (00:44→20:55)
[2022-02-17] MEDS: 0.9% Normal Saline 1,000 ML 100 ML IV (00:44)
--- NOTE | 2022-02-17 00:49 | CT_ITS ---
STUDY: CTA CHEST REASON FOR EXAM: Male, 61 years old. suspected PE -- Non resolving pneumonia, MARCIAL, suspected Lung mass RADIATION DOSAGE (If Supplied By Facility): CTDIvol = ( 9.93 ) mGy, DLP = ( 479.23 ) mGycm TECHNIQUE: The examination was performed with the intravenous administration of IV 100mL Isovue-370. Post-processing of the angiographic images was performed, with multiplanar reformation and 3D reconstruction. Individualized dose optimization techniques were used for this CT. COMPARISON: None. FINDINGS: Normal enhancement of the main pulmonary artery and right and left pulmonary arteries. Normal enhancement of the bilateral peripheral pulmonary arteries. There is no demonstrated pulmonary embolism. There is atherosclerotic calcification of the aortic arch with tortuosity. There is no demonstrated aortic dissection. Normal heart and pericardium. Normal mediastinum. Normal hilar regions. Normal visualized trachea and bronchi. Extensive groundglass and airspace opacity involving the entire left upper lobe and lingular lobe with mild opacity in the left lower lobe compatible with multilobar pneumonia. There is superimposed atelectasis over the left lower lobe. There is mild biapical subpleural emphysema. Mild left pleural effusion. Normal chest wall structures. Mild spondylosis throughout the thoracic spine with possible mild osteopenic changes. Otherwise unremarkable bony structures. Normal visualized upper abdomen. CT/CTA Chest W/WO Contrast IMPRESSION: No pulmonary embolus or aortic dissection. Multilobar left-sided pneumonia with mild left pleural effusion. Superimposed left lower lobe atelectasis. Electronically Signed: Terra Rubin MD at 2:22 EDT ,
[2022-02-17 01:00] LABS: AST(SGOT) 13 U/L (15-37); Alanine Aminotransfer ALT/SGPT 18 U/L (16-61); Albumin, Serum 2.7 g/dL (3.2-5.0); Alkaline Phosphatase 79 U/L (45-117); Bilirubin, Direct 0.49 mg/dL (0.00-0.30); Globulin 3.4 g/dL (2.2-4.2); Phosphorus 2.5 mg/dL (2.5-4.9); Protein, Total 6.1 g/dL (6.4-8.2)
[2022-02-17 01:09] LABS: Lactic Acid 2.2 mmol/L (0.4-1.9)
--- NOTE | 2022-02-17 01:22 | CPS ---
Two Albuterol aerosols given at 2048
--- NOTE | 2022-02-17 01:24 | CPS ---
One Duoneb aerosol given at 2140
[2022-02-17 02:44] LABS: M R Staph aureus DNA By PCR Negative (Negative); Probe Check PASS; Specimen Processing Control PASS
[2022-02-17] MEDS: Ipratropium/Albuterol Sulfate 3 ML AMPUL.NEB INHALATION ×6 (03:19→22:33)
[2022-02-17 04:22] LABS: Reflex Lactate? Y
--- NOTE | 2022-02-17 05:35 | PCM.RX.CS ---
Consult Pharmacy has been consulted to manage selected antiobiotic: Vancomycin Type of Consult: New start Suspected Infection: Pneumonia Labs: Sodium 133 mmol/L (136-145) L 02/16/22 20:32 Potassium 3.5 mmol/L (3.5-5.1) 02/16/22 20:32 Chloride 100 mmol/L (98-107) 02/16/22 20:32 Carbon Dioxide 27.0 mmol/L (21.0-32.0) 02/16/22 20:32 Anion Gap 6 (5-15) 02/16/22 20:32 BUN 10 mg/dL (7-18) 02/16/22 20:32 Creatinine 0.95 mg/dL (0.70-1.30) 02/16/22 20:32 Est GFR (MDRD) Af Amer 104 mL/min (>60) 02/16/22 20:32 Est GFR (MDRD) Non-Af 86 mL/min (>60) 02/16/22 20:32 BUN/Creatinine Ratio 10.5 RATIO (10-20) 02/16/22 20:32 Glucose 97 mg/dL (74-106) 02/16/22 20:32 Microbiology: Microbiology 02/17/22 00:30 Interface Orders Legionella Antigen - Final 02/17/22 00:30 Interface Orders Streptococcus pneumoniae Antigen (M - Final 02/16/22 20:43 Nasal Secretion SARS-CoV-2 Antigen (Rapid) - Final Goal Trough: 15-20 mcg/mL Pharmacy Plan for Drug Dosing: Pharmacy Service will continue to monitor and adjust dosing as required. Medications Vancomycin HCl 1,750 mg/ (Sodium Chloride) 535 mls @ 250 mls/hr IV Q12H JOLEEN Discontinued Medications Vancomycin HCl 1,250 mg/ (Sodium Chloride) 275 mls @ 167 mls/hr IV X1 ONE Stop: 02/16/22 22:59 Last Admin: 02/17/22 00:22 Dose: Infused Follow-Up Labs: Trough Vancomycin Labs to be done on [date and time ordered]: 02/18 @ 0978
[2022-02-17 05:55] LABS: Absolute Lymphocyte Count 0.82 X10^3/uL (0.83-4.51); Absolute Neutrophil Count 7.3 X10^3/uL (2.0-7.7); Basophil# 0.01 X10^3/uL; Basophil% 0.1 % (0-1); Hematocrit 34.1 % (40-54); Hemoglobin 11.2 g/dL (13.0-16.5); Lymphocyte # 0.82 X10^3/ul (0.83-4.51); Lymphocyte % 9.6 % (19-41); Mean Corp Hgb Conc 32.8 g/dL (32-36); Mean Corpuscular Hgb 30.4 pg (27.0-32.0); Mean Corpuscular Volume 92.4 fL (80-94); Mean Platelet Vol. 9.9 fl (6.2-12.0); Monocyte# 0.29 X10^3/uL; Monocyte% 3.4 % (0-10); NRBC Flagged by Analyzer 0 % (0-5); Neutrophil # 7.27 X10^3/uL (2.7-7.7); Neutrophil % 85.5 % (47-70); Platelet Count 147 K/mm3 (150-450); RBC Distribution Width CV 15.9 % (11.6-14.6); RBC Distribution Width SD 53.9 fl (35.1-43.9); Red Blood Count 3.69 M/mm3 (4.6-6.2); White Blood Count 8.5 K/mm3 (4.4-11.0)
[2022-02-17 06:09] LABS: Anion Gap 7 (5-15); BUN 12 mg/dL (7-18); BUN/Creat Ratio 10.6 RATIO (10-20); Calcium,Total 8.7 mg/dL (8.5-10.1); Chloride 106 mmol/L (98-107); Creatinine, Serum 1.13 mg/dL (0.70-1.30); EST Glomerular Filtration Rate 70 mL/min (>60); Est Glom Filt Rate - Afr Amer 85 mL/min (>60); Glucose 209 mg/dL (74-106); Potassium 3.5 mmol/L (3.5-5.1); Sodium Level 136 mmol/L (136-145)
[2022-02-17] MEDS: Enoxaparin 40 MG/0.4 ML Syringe SC (09:10)
[2022-02-17 09:23] LABS: International Normalized Ratio 1.1; Prothrombin Time (Protime)PT. 14.1 SECONDS (11.7-14.9)
--- NOTE | 2022-02-17 09:54 | PN.HOSP_ITS ---
Subjective Subjective Follow-up on pneumonia, failed outpatient therapy: Patient was seen and examined. He stated that he felt much better. Denied any fever or chills. Still has a cough but not productive. Remains off oxygen. Objective Data Objective Data Vital Signs: Vital Signs Temp Pulse Resp BP Pulse Ox O2 Del Method 97.6 F L 75 16 121/62 H 91 Room Air 02/17/22 05:23 02/17/22 07:43 02/17/22 07:43 02/17/22 05:23 02/17/22 07:43 02/17/22 07:43 Oxygen Delivery Method Room Air Weight: 88.677 kg Body Mass Index (BMI) 26.7 Intake & Output: Intake and Output for Last 24 Hours 02/15/22 02/16/22 02/17/22 23:59 23:59 23:59 Intake Total 50 / 50 800 / 800 Balance 50 / 50 800 / 800 Lab / Micro Data Result Diagrams: 02/17/22 05:40 02/17/22 05:40 Labs: Laboratory Results - last 24 hr 02/16/22 20:32: WBC 12.1 H, RBC 3.76 L, Hgb 11.4 L, Hct 34.6 L, MCV 92.0, MCH 30.3, MCHC 32.9, RDW Std Deviation 54.5 H, RDW Coeff of Enriqueta 16.1 H, Plt Count 143 L, MPV 9.3, Immature Gran % (Auto) 1.400 H, Neut % (Auto) 64.6, Lymph % (Auto) 20.2, [place] % (Auto) 11.4 H, Eos % (Auto) 2.0, Baso % (Auto) 0.4, Absolute Neuts (auto) 7.8 H, Absolute Lymphs (auto) 2.44, Nucleated RBC % 0 02/16/22 20:32: Sodium 133 L, Potassium 3.5, Chloride 100, Carbon Dioxide 27.0, Anion Gap 6, BUN 10, Creatinine 0.95, Estim Creat Clear Calc 90.76, Est GFR (MDRD) Af Amer 104, Est GFR (MDRD) Non-Af 86, BUN/Creatinine Ratio 10.5, Glucose 97, Calcium 8.1 L 02/17/22 00:16: Phosphorus 2.5, Magnesium 2.0, Total Bilirubin 1.90 H, Direct Bilirubin 0.49 H, AST 13 L, ALT 18, Alkaline Phosphatase 79, Total Protein 6.1 L , Albumin 2.7 L, Globulin 3.4 02/17/22 00:16: Lactic Acid 2.2 H* 02/17/22 00:30: MRSA (PCR) Negative 02/17/22 00:48: COVID-19 (BRENDA) Not Detected 02/17/22 05:40: WBC 8.5, RBC 3.69 L, Hgb 11.2 L, Hct 34.1 L, MCV 92.4, MCH 30.4, MCHC 32.8, RDW Std Deviation 53.9 H, RDW Coeff of Enriqueta 15.9 H, Plt Count 147 L, MPV 9.9, Immature Gran % (Auto) 1.400 H, Neut % (Auto) 85.5 H, Lymph % (Auto) 9.6 L, [place] % (Auto) 3.4, Eos % (Auto) 0.0, Baso % (Auto) 0.1, Absolute Neuts (auto) 7.3, Absolute Lymphs (auto) 0.82 L, Nucleated RBC % 0 02/17/22 05:40: Sodium 136, Potassium 3.5, Chloride 106, Carbon Dioxide 23.0, Anion Gap 7, BUN 12, Creatinine 1.13, Estim Creat Clear Calc 76.30, Est GFR (MDRD) Af Amer 85, Est GFR (MDRD) Non-Af 70, BUN/Creatinine Ratio 10.6, Glucose 209 H, Calcium 8.7 02/17/22 05:40: Lactic Acid 4.0 H* 02/17/22 08:55: PT 14.1, INR 1.1 Micro: Microbiology 02/17/22 00:48 Mucosa - Nose Respiratory Panel (PCR) - Final 02/17/22 00:30 Interface Orders Legionella Antigen - Final 02/17/22 00:30 Interface Orders Streptococcus pneumoniae Antigen (M - Final 02/16/22 20:43 Nasal Secretion SARS-CoV-2 Antigen (Rapid) - Final Radiography Diagnostic Testing: Radiology Impression Chest X-Ray 02/16/22 20:41 IMPRESSION: Left upper lobe pneumonia. Electronically Signed: West Haines MD at 21:10 EDT , Chest CTA 02/17/22 00:49 IMPRESSION: No pulmonary embolus or aortic dissection. Multilobar left-sided pneumonia with mild left pleural effusion. Superimposed left lower lobe atelectasis. Electronically Signed: Terra Rubin MD at 2:22 EDT , Physical Exam Narrative Physical exam: General: Alert, Oriented x3, Cooperative, No apparent distress HEENT: Atraumatic Oral: Moist Mucosa Neck: Supple Lungs: Diminished to auscultation, coarse crackles heard in the upper lung zones Cardiovascular: HS I+II, regular, no murmurs Abdomen: Bowel Sounds Present, Soft, Non Tender Extremities: No edema Skin: No rashes, No breakdown Neurological: Grossly intact Psych/Mental Status: Appropriate Assessment & Plan Assessment/Plan (1) Pneumonia: (2) Failure of outpatient treatment: PLAN: Plan 1. Pneumonia, failed outpatient therapy Admitting chest x-ray shows a left upper lobe pneumonia. CTA of the chest shows multilobar left-sided pneumonia with mild left pleural effusion. WBC count improved from 12.1 to 8.5. Blood cultures are negative. Rapid COVID-19 test is negative. Urine Streptococcus and Legionella antigens are negative. Respiratory panel was negative. Continue on IV vancomycin and Zosyn We will consult pulmonology 2. DVT prophylaxis?Lovenox subcu Charges/Coding Visit Charges Inpatient E&M: 20939 Subs Hosp L2
[2022-02-17] MEDS: 0.9% Normal Saline 1,000 ML 125 ML IV (12:40)
--- NOTE | 2022-02-17 14:53 | CON.PCM.CC_ITS ---
Assessment & Plan Assessment/Plan (1) Pneumonia: (2) Failure of outpatient treatment: PLAN: Plan RECOMMENDATIONS: 1. Initiate steroids and wean over the next 12 to 14 days 2. Continue vancomycin and Zosyn for now 3. Obtain walking oximetry tomorrow 4. Potential discharge tomorrow if able to ambulate on room air with 7 days of Levaquin 5. Outpatient complete PFT and repeat chest x-ray in 4 to 6 weeks IMPRESSIONS: 1. Left-sided pneumonia Clinical suspicion for underlying obstructive lung disease, but this cannot be verified at this time. Patient significantly improved since yesterday. Antibiotics have been broadened and patient was given steroids. Unclear which is having the major factor. If patient is able to have a 6-minute walk tomorrow without significant desaturation, likely okay to discharge from a pulmonary perspective with outpatient follow-up. Patient will need a chest x- ray in 4 to 6 weeks to document resolution. Patient likely could be treated with Levaquin to complete antibiotic course. Low clinical suspicion for MRSA or Pseudomonas given nonproductive cough. Patient could be placed on Combivent as needed until further information is available. 2. Anemia Unclear etiology at this time. Anticipate if patient is having chronic hypoxia that this would be elevated. Patient does not have a significant change in MCV or MCH to suggest iron deficiency. Could complete a work-up as an outpatient. 3. Protracted smoking/poor primary visits/poor insight Complicates care, management, recovery and prognosis. Encourage continued smoking cessation. Did stressed to the patient that malignancy cannot be excluded and follow-up imaging will be necessary. Patient does appear to have poor insight into his health at this time. Patient likely would benefit from an outpatient PCP exam to evaluate other issues such as hypertension, peripheral artery disease and coronary artery disease. HPI Consult Data Date of Consult: 02/17/22 HPI Narrative Reason for Consultation: Pneumonia HPI Narrative: TOMAS MCDERMOTT is a 61 M, with past medical history listed below, who presents to [facility] on 02/16/2022 secondary persistence of shortness of breath. Patient had been seen in the ER earlier in the week and placed on cefdinir and sent home. Patient persisted in symptoms and reported a fever of 100.9 ?F, so came back for an evaluation. Patient did report significant wheezing, but does not carry a formal diagnosis of asthma or COPD. Patient did start smoking at age 16 and quit at the onset of this illness. In the ER, patient was afebrile, but hypertensive at 152/77. Patient was saturating well on room air, but tachypneic at 22 breaths/min. Laboratory work- up showed a white blood cell count of 12.1, hemoglobin of 11.4 and platelets of 143. Chemistry was relatively unremarkable. X-ray showed a left upper lobe pneumonia and a CTA of the chest showed no PE with significant left-sided infiltrates and a small pleural effusion. EKG showed sinus rhythm with tachycardia. Pancultures were ordered and the patient was given Zosyn and vancomycin. Patient was also given Solu-Medrol and admitted to the hospital for further evaluation. On my evaluation, patient reported a significant improvement in overall condition. Patient states he had significant paroxysmal type coughing prior to being admitted to the hospital. Patient states this is much improved. Patient is reporting hoarseness. Patient describes his cough as nonproductive throughout the hospital course. Patient states he did have bronchitis in August and has not felt the same since. Patient reports his health was great until August and everything has been falling apart since then. Patient has never seen a career center director or had pulmonary function test previously. Patient denies ever requiring steroids or inhalers, but readily admits that he does not see the doctor frequently. Patient has not reported any significant lower extremity edema. Patient has not had any left-sided trauma. Patient was in the in the past, but never reports being incarcerated or recent travel. Patient reports he has had x-rays previously that did not show any shadows. Review of systems otherwise negative from a constitutional, HEENT, respiratory, cardiovascular, GI, genitourinary, musculoskeletal, skin, neurologic, psychiatric and hematologic system unless stated above. PFSH Medical History Former smoker Medical History no medical history Home Medications NK 02/16/22 [History Last Taken Unknown] Allergy/AdvReac Type Severity Reaction Status Date / Time erythromycin base Allergy Rash Verified 02/16/22 19:58 [Erythromycin Base] Social History Smoking Status: Former smoker ROS ROS Narrative See HPI Physical Exam Const alert, oriented x3 and no apparent distress Constitutional Narrative: Appears older than stated age General Appearance: cooperative and well developed HEENT normocephalic, head/scalp atraumatic and moist oral mucous membranes HEENT Narrative: No oxygen in place. Eyes PERRL and EOMs intact bilaterally Neck full ROM and no lymphadenopathy Chest Chest: abnormal inspection of the chest increased A-P diameter Resp normal respiratory effort and no use of accessory muscles Resp Narrative: No conversational dyspnea at rest Effort and Inspection: prolonged expiratory phase Auscultation: diminished lung sounds; Negative for rales, rhonchi or wheezes Percussion: Negative for dullness Cardio regular rate, regular rhythm, S1 normal heart sound, S2 normal heart sound, no murmurs, no rub and no gallops GI normal to inspection, nondistended, normoactive bowel sounds no CVA tenderness Extremity no clubbing, cyanosis or edema Skin no rashes or lesions noted Neuro oriented x3, CN's II-XII intact bilaterally, moves all extremities and no focal motor deficits Psych cooperative and affect normal Lab / Micro Data Attestation: I reviewed the patient's lab results. Result Diagrams: 02/17/22 05:40 02/17/22 05:40 Labs: Laboratory Results - last 24 hr 02/16/22 20:32: WBC 12.1 H, RBC 3.76 L, Hgb 11.4 L, Hct 34.6 L, MCV 92.0, MCH 30.3, MCHC 32.9, RDW Std Deviation 54.5 H, RDW Coeff of Enriqueta 16.1 H, Plt Count 143 L, MPV 9.3, Immature Gran % (Auto) 1.400 H, Neut % (Auto) 64.6, Lymph % (Auto) 20.2, [place] % (Auto) 11.4 H, Eos % (Auto) 2.0, Baso % (Auto) 0.4, Absolute Neuts (auto) 7.8 H, Absolute Lymphs (auto) 2.44, Nucleated RBC % 0 02/16/22 20:32: Sodium 133 L, Potassium 3.5, Chloride 100, Carbon Dioxide 27.0, Anion Gap 6, BUN 10, Creatinine 0.95, Estim Creat Clear Calc 90.76, Est GFR (MDRD) Af Amer 104, Est GFR (MDRD) Non-Af 86, BUN/Creatinine Ratio 10.5, Glucose 97, Calcium 8.1 L 02/17/22 00:16: Phosphorus 2.5, Magnesium 2.0, Total Bilirubin 1.90 H, Direct Bilirubin 0.49 H, AST 13 L, ALT 18, Alkaline Phosphatase 79, Total Protein 6.1 L , Albumin 2.7 L, Globulin 3.4 02/17/22 00:16: Lactic Acid 2.2 H* 02/17/22 00:30: MRSA (PCR) Negative 02/17/22 00:48: COVID-19 (BRENDA) Not Detected 02/17/22 05:40: WBC 8.5, RBC 3.69 L, Hgb 11.2 L, Hct 34.1 L, MCV 92.4, MCH 30.4, MCHC 32.8, RDW Std Deviation 53.9 H, RDW Coeff of Enriqueta 15.9 H, Plt Count 147 L, MPV 9.9, Immature Gran % (Auto) 1.400 H, Neut % (Auto) 85.5 H, Lymph % (Auto) 9.6 L, [place] % (Auto) 3.4, Eos % (Auto) 0.0, Baso % (Auto) 0.1, Absolute Neuts (auto) 7.3, Absolute Lymphs (auto) 0.82 L, Nucleated RBC % 0 02/17/22 05:40: Sodium 136, Potassium 3.5, Chloride 106, Carbon Dioxide 23.0, Anion Gap 7, BUN 12, Creatinine 1.13, Estim Creat Clear Calc 76.30, Est GFR (MDRD) Af Amer 85, Est GFR (MDRD) Non-Af 70, BUN/Creatinine Ratio 10.6, Glucose 209 H, Calcium 8.7 02/17/22 05:40: Lactic Acid 4.0 H* 02/17/22 08:55: PT 14.1, INR 1.1 Micro: Microbiology 02/17/22 00:48 Mucosa - Nose Respiratory Panel (PCR) - Final 02/17/22 00:30 Interface Orders Legionella Antigen - Final 02/17/22 00:30 Interface Orders Streptococcus pneumoniae Antigen (M - Final 02/16/22 20:43 Nasal Secretion SARS-CoV-2 Antigen (Rapid) - Final Radiology Impression Chest X-Ray 02/16/22 20:41 IMPRESSION: Left upper lobe pneumonia. Electronically Signed: West Haines MD at 21:10 EDT , Chest CTA 02/17/22 00:49 IMPRESSION: No pulmonary embolus or aortic dissection. Multilobar left-sided pneumonia with mild left pleural effusion. Superimposed left lower lobe atelectasis. Electronically Signed: Terra Rubin MD at 2:22 EDT , Charges/Coding Visit Charges Inpatient E&M: 85006 Init Hosp L2
--- NOTE | 2022-02-17 15:20 | CHAPLAIN ---
Type of Pastoral Visit _x__ Initial Visit ___ Follow-up Visit ___ On-call Visit ___ General Patient Visit ___ Spiritual Assessment ___ Family Conference ___ Bereavement ___ Rapid Response ___ Code Blue ___ Other (describe below) Pastoral Care Referral From _x__ Patient ___ Family ___ Nurse ___ Physician ___ Manager Employee Relations ___ Sales Service Coordinator ___ Other (describe below) Sacrament/Intervention _x__ Active listening ___ Anointing ___ Taoism ___ Bereavement ___ Communion ___ Grace exploration ___ _x__ Life review _x__ Prayer ___ Reconciliation ___ Sacrament of Sick ___ Supportive presence ___ Wedding ___ Other (describe below) Pastoral Comments patient speaks of his struggle with health since the spring time and of the of his mother in the winter; pt states he has been healthy and had good life up until now; pt shares frustrations with inability to go back to work for awhile; pt welcomes presence and prayer; RT came at this time for breathing treatment
[2022-02-17] MEDS: predniSONE 20 MG Tablet 40 MG PO (16:30)
[2022-02-18] VITALS (7 sets, daily range): BP systolic 131; BP diastolic 58–66; PULSE 74–88; RESP 16–18; TEMP 36.4–36.5; O2SAT 91–98
[2022-02-18] MEDS: Ipratropium/Albuterol Sulfate 3 ML AMPUL.NEB INHALATION ×3 (03:06→11:49)
[2022-02-18] MEDS: guaiFENesin 1,200 MG Tablet 1200 MG PO (07:57)
[2022-02-18] MEDS: predniSONE 20 MG Tablet 40 MG PO (07:57)
[2022-02-18] MEDS: Enoxaparin 40 MG/0.4 ML Syringe SC (07:57)
--- NOTE | 2022-02-18 08:38 | PCM.PN.INT ---
Assessment & Plan Assessment/Plan (1) Pneumonia: (2) Failure of outpatient treatment: PLAN: Plan RECOMMENDATIONS: 1. Continue steroids and wean over the next 12 to 14 days 2. Continue vancomycin and Zosyn for now. Okay to discharge on Levaquin 3. Obtain walking oximetry tomorrow 4. Okay to discharge from a pulmonary perspective to complete 7 days of Levaquin 5. Outpatient complete PFT and repeat chest x-ray in 4 to 6 weeks 6. Follow-up in pulmonary office following chest x-ray in 4 weeks IMPRESSIONS: 1. Left-sided pneumonia Clinical suspicion for underlying obstructive lung disease, but this cannot be verified at this time. Patient improved since yesterday. Antibiotics have been broadened and patient was given steroids. Unclear which is having the major factor. Patient able to tolerate ambulation without requiring supplemental oxygen. Okay to discharge from a pulmonary perspective. Patient will need a chest x-ray in 4 to 6 weeks to document resolution. Patient likely could be treated with Levaquin to complete antibiotic course. Low clinical suspicion for MRSA or Pseudomonas given nonproductive cough. Patient could be placed on Combivent as needed until further information is available. 2. Anemia Unclear etiology at this time. Anticipate if patient is having chronic hypoxia that this would be elevated. Patient does not have a significant change in MCV or MCH to suggest iron deficiency. Could complete a work-up as an outpatient. 3. Protracted smoking/poor primary visits/poor insight Complicates care, management, recovery and prognosis. Encourage continued smoking cessation. Did stressed to the patient that malignancy cannot be excluded and follow-up imaging will be necessary. Patient does appear to have poor insight into his health at this time. Patient likely would benefit from an outpatient PCP exam to evaluate other issues such as hypertension, peripheral artery disease and coronary artery disease. Subjective Subjective Patient did well overnight. Patient feels subjectively improved compared to yesterday. Patient did have a walking oximetry this morning and reportedly did not require supplemental oxygen. Patient is not reporting any chest pain. Patient does have a cough, but feels this is improving. Objective Data Objective Data Vital Signs: Vital Signs Temp Pulse Resp BP Pulse Ox O2 Del Method 36.5 C L 88 16 131/66 H 97 Room Air 02/18/22 08:27 02/18/22 08:32 02/18/22 08:27 02/18/22 08:27 02/18/22 08:27 02/18/22 08:27 Oxygen Delivery Method Room Air Weight: 88.67 kg Body Mass Index (BMI) 26.7 Intake & Output: Intake and Output for Last 24 Hours 02/16/22 02/17/22 02/18/22 23:59 23:59 23:59 Intake Total 50 / 50 2851.04 / 2851.04 643.96 / 643.96 Balance 50 / 50 2851.04 / 2851.04 643.96 / 643.96 Lab / Micro Data Attestation: I reviewed the patient's lab results. Result Diagrams: 02/17/22 05:40 02/17/22 05:40 Labs: Laboratory Results - last 24 hr 02/17/22 08:55: PT 14.1, INR 1.1 Micro: Microbiology 02/17/22 00:48 Mucosa - Nose Respiratory Panel (PCR) - Final 02/17/22 00:30 Interface Orders Legionella Antigen - Final 02/17/22 00:30 Interface Orders Streptococcus pneumoniae Antigen (M - Final 02/16/22 20:43 Nasal Secretion SARS-CoV-2 Antigen (Rapid) - Final Physical Exam Const alert, oriented x3 and no apparent distress Constitutional Narrative: Appears older than stated age General Appearance: cooperative and well developed HEENT normocephalic, head/scalp atraumatic and moist oral mucous membranes Eyes PERRL and EOMs intact bilaterally Neck full ROM and no lymphadenopathy Chest Chest: abnormal inspection of the chest increased A-P diameter Resp normal respiratory effort and no use of accessory muscles Resp Narrative: No conversational dyspnea at rest Effort and Inspection: prolonged expiratory phase Auscultation: diminished lung sounds; Negative for rales, rhonchi or wheezes Percussion: Negative for dullness Cardio regular rate, regular rhythm, S1 normal heart sound, S2 normal heart sound, no murmurs, no rub and no gallops GI normal to inspection, nondistended, normoactive bowel sounds no CVA tenderness Extremity no clubbing, cyanosis or edema Skin no rashes or lesions noted Neuro oriented x3, CN's II-XII intact bilaterally, moves all extremities and no focal motor deficits Psych cooperative and affect normal Charges/Coding Visit Charges Inpatient E&M: 29926 Subs Hosp L2
--- NOTE | 2022-02-18 08:55 | DCINST_ITS ---
Discharge Instructions Diet Discharge Diet: No restrictions Activity Discharge Activity: Return to Normal Activity Follow Up Care Test Results: Test results from this visit will be discussed in further detail at your follow- up appointment, if applicable. Discharge Plan Admission Admit Date/Time: 02/16/22 22:52 Primary Reason for Your Visit: Pneumonia Attending Provider: Janice Castro Primary Care Provider: Nikita Melo Consulting Providers: Dave Gomez ; Ramses Menjivar Instructions Additional Instructions / Restrictions: Continue to avoid smoking Complete your antibiotics Follow-up with pulmonology in 4 to 6 weeks for repeat chest x-ray and pulmonary function test. Continue to use your incentive spirometer Discharge Orders/Prescriptions Prescriptions: New Mucus Relief ER 1,200 mg Tablet Extended Release 12hr 1,200 mg PO BID 7 Days Qty: 14 0RF levofloxacin 750 mg tablet 750 mg PO DAILY 7 Days Qty: 7 0RF prednisone 10 mg tablet See Taper PO DAILY Qty: 30 0RF Taper: Prednisone Taper 40 mg WITH BREAKFAST for 3 Days and 0 Hour 30 mg WITH BREAKFAST for 3 Days and 0 Hour 20 mg WITH BREAKFAST for 3 Days and 0 Hour 10 mg WITH BREAKFAST for 3 Days and 0 Hour albuterol sulfate 90 mcg/actuation HFA aerosol inhaler 2 puff inhalation Q4H PRN (Reason: shortness of breath or wheezing) Qty: 8.5 0RF Referrals / Follow Up: Nikita Melo [Primary Care Provider] - In 1 Week Ramses Menjivar MD [Med Staff - Active Staff] - Within 1 Month (in 4 weeks) Disposition Disposition (needs filled in before D/C Order can be placed): Home, Self Care
--- NOTE | 2022-02-18 09:00 | PCM.DC.SUM ---
Providers Date of Admission: 02/16/22 Date of Discharge: 02/18/22 Primary Care Physician: Nikita Melo Consultations 02/17/22 09:38 Consult: Advanced Manufacturing Technician / Pulmonary Medicine Routine Consulting Provider: Ramses Menjivar Reason for Consult: Pneumonia, failed outpatient EMERGENT Consult: No MD Notified: Yes Date Notified: 02/17/22 Time Notified: 11:45 Method of Notification: Text Reason For Visit: LEFT LUNG PNEUMONIA Diagnosis Discharge Diagnosis (1) Pneumonia: Status: Acute Code(s): J18.9 - Pneumonia, unspecified organism (2) Failure of outpatient treatment: Status: Acute Code(s): Z78.9 - Other specified health status Medications at Discharge Home Medications albuterol sulfate 90 mcg/actuation aerosol inhaler 2 puff inhalation Q4H PRN shortness of breath or wheezing #8.5 grams 02/18/22 guaifenesin 1,200 mg tablet, extended release 12 hr (Mucus Relief ER) 1,200 mg PO BID 7 days #14 tabs 02/18/22 levofloxacin 750 mg tablet 750 mg PO DAILY 7 days #7 tabs 02/18/22 prednisone 10 mg tablet See Taper PO DAILY #30 tabs 02/18/22 Hospital Course Operations None Procedures None Summary of Care Provided Minutes Spent on Discharge: 35 Hospital Course: 61-year-old, former smoker, who comes in with fever, cough, fatigue, shortness of breath and wheezing ongoing for 2 days. Patient stated that since January, he has had pneumonia several times. He was initially diagnosed on 20 January and discharged with 7 days of Omnicef which he completed. He felt unwell and was reevaluated on 01/28 and was given Levaquin. He however presented back again and chest x-ray done showed worsening left upper lobe pneumonia. Patient was admitted to the [facility] floor, he did not require oxygen, started on IV vancomycin and Zosyn. Blood cultures were negative. He was unable to produce sputum. Ground Host/Hostess was consulted. Patient continued to improve. He was discharged on 7 days of Levaquin and a steroid taper. He will follow-up with pulmonology in the outpatient in 4 weeks for repeat chest x-ray as well as outpatient PFTs. On the day of discharge, patient was seen and examined. He stated he felt improved. Denied any new complaint. He was ambulated around the nursing floor and did not require oxygen. Physical Exam Narrative Physical exam: General: Alert, Oriented x3, Cooperative, No apparent distress HEENT: Atraumatic Oral: Moist Mucosa Neck: Supple Lungs: Diminished to auscultation Cardiovascular: HS I+II, regular, no murmurs Abdomen: Bowel Sounds Present, Soft, Non Tender Extremities: No edema Skin: No rashes, No breakdown Neurological: Grossly intact Psych/Mental Status: Appropriate Weight / BMI Weight Weight: 88.67 kg Body Mass Index (BMI) 26.7 ABG / Lab / Microbiology Data Result Diagrams: 02/17/22 05:40 02/17/22 05:40 Laboratory: Laboratory Results - last 24 hr 02/17/22 08:55: PT 14.1, INR 1.1 Microbiology: Microbiology 02/17/22 00:48 Mucosa - Nose Respiratory Panel (PCR) - Final 02/17/22 00:30 Interface Orders Legionella Antigen - Final 02/17/22 00:30 Interface Orders Streptococcus pneumoniae Antigen (M - Final 02/16/22 20:43 Nasal Secretion SARS-CoV-2 Antigen (Rapid) - Final D/C Instructions Discharge Diet: No restrictions Meaningful Use Info Meaningful Use Diagnoses (Choose all that apply): None applicable Discharge Plan Admission Admit Date/Time: 02/16/22 22:52 Primary Reason for Your Visit: Pneumonia Attending Provider: Janice Castro Primary Care Provider: Nikita Melo Consulting Providers: Dave Gomez ; Ramses Menjivar Instructions Additional Instructions / Restrictions: Continue to avoid smoking Complete your antibiotics Follow-up with pulmonology in 4 to 6 weeks for repeat chest x-ray and pulmonary function test. Continue to use your incentive spirometer Discharge Orders/Prescriptions Prescriptions: New Mucus Relief ER 1,200 mg Tablet Extended Release 12hr 1,200 mg PO BID 7 Days Qty: 14 0RF levofloxacin 750 mg tablet 750 mg PO DAILY 7 Days Qty: 7 0RF prednisone 10 mg tablet See Taper PO DAILY Qty: 30 0RF Taper: Prednisone Taper 40 mg WITH BREAKFAST for 3 Days and 0 Hour 30 mg WITH BREAKFAST for 3 Days and 0 Hour 20 mg WITH BREAKFAST for 3 Days and 0 Hour 10 mg WITH BREAKFAST for 3 Days and 0 Hour albuterol sulfate 90 mcg/actuation HFA aerosol inhaler 2 puff inhalation Q4H PRN (Reason: shortness of breath or wheezing) Qty: 8.5 0RF Referrals / Follow Up: Ramses Menjivar MD [Med Staff - Active Staff] - Within 1 Month (in 4 weeks) Nikita Melo [Primary Care Provider] - In 1 Week Disposition Disposition (needs filled in before D/C Order can be placed): Home, Self Care Charges/Coding Visit Charges Inpatient E&M: 46354 Disch Hosp
--- NOTE | 2022-02-18 09:31 | CASEMGMT ---
JORJE CM in to pt room, pt states he is ready to dc, denies homegoing needs. Pt did not qualify for home oxygen. Pt asks a question regarding his rx called in. He states that he received an automated tc from [facility] in [place] that it is too soon to fill the albuterol. TC to [facility], spoke with Mirella, she states two rx were sent in for the same med. She cancelled one and states there will be no problem with pt filling it. Pt is aware and denies further needs.
--- NOTE | 2022-02-18 10:45 | PHA.DC.MC ---
Addendum entered and electronically signed by Hannah Bautista 02/18/22 10:48: Patient counseled by pharmacy clinical coordinator, Tima. Original Note: Pharmacy Service has performed discharge medication reconciliation and counseling for this patient. 1. GUAIFENESIN 1200MG PO BID X 7 DAYS 2. LEVOFLOXACIN 750MG PO DAILY X 7 DAYS 3. PREDNISONE TAPER - 40MG X 3 DAYS, 30MG X 3 DAYS, 20MG X 3 DAYS, 10MG X 3 DAYS 4. ALBUTEROL INHALER 2PUFFS Q4H PRN SOB/WHEEZING The patient's discharge medication list was reviewed for discrepancies and discrepancies were resolved. Home Medications albuterol sulfate 90 mcg/actuation aerosol inhaler 2 puff inhalation Q4H PRN shortness of breath or wheezing #8.5 grams 02/18/22 guaifenesin 1,200 mg tablet, extended release 12 hr (Mucus Relief ER) 1,200 mg PO BID 7 days #14 tabs 02/18/22 levofloxacin 750 mg tablet 750 mg PO DAILY 7 days #7 tabs 02/18/22 prednisone 10 mg tablet See Taper PO DAILY #30 tabs 02/18/22 The patient was counseled on the following discharge medications and changes in medications for homegoing were reviewed. The Reason for Use, instructions for use, and potential side effects were reviewed for all new medications. The patient's questions regarding all of their medications were answered. The patient was able to verbally demonstrate an understanding of their discharge medications.
[2022-02-18 10:57] LABS: Vancomycin, Trough Level 15.8 ug/mL (5.0-15.0)
--- NOTE | 2022-02-18 11:54 | PCM.RX.CS ---
Consult Pharmacy has been consulted to manage selected antiobiotic: Vancomycin Type of Consult: Follow-up Labs: Sodium 136 mmol/L (136-145) 02/17/22 05:40 Potassium 3.5 mmol/L (3.5-5.1) 02/17/22 05:40 Chloride 106 mmol/L (98-107) 02/17/22 05:40 Carbon Dioxide 23.0 mmol/L (21.0-32.0) 02/17/22 05:40 Anion Gap 7 (5-15) 02/17/22 05:40 BUN 12 mg/dL (7-18) 02/17/22 05:40 Creatinine 1.13 mg/dL (0.70-1.30) 02/17/22 05:40 Est GFR (MDRD) Af Amer 85 mL/min (>60) 02/17/22 05:40 Est GFR (MDRD) Non-Af 70 mL/min (>60) 02/17/22 05:40 BUN/Creatinine Ratio 10.6 RATIO (10-20) 02/17/22 05:40 Glucose 209 mg/dL (74-106) H 02/17/22 05:40 Vancomycin Trough 15.8 ug/mL (5.0-15.0) H 02/18/22 09:30 Microbiology: Microbiology 02/17/22 00:48 Mucosa - Nose Respiratory Panel (PCR) - Final 02/17/22 00:30 Interface Orders Legionella Antigen - Final 02/17/22 00:30 Interface Orders Streptococcus pneumoniae Antigen (M - Final 02/16/22 20:43 Nasal Secretion SARS-CoV-2 Antigen (Rapid) - Final Goal Trough: 15-20 mcg/mL Pharmacy Plan for Drug Dosing: VANCOMYCIN LEVEL RECEIVED Current Vancomycin Dose: 1250MG IV Q12HR Number of Doses Received: 3 (initial + 2 scheduled) Vancomycin Level: 15.8 Hours Since Last Dose: 11.25hr Renal Function: 1.13 Renal Function Trend: slight increase from start of vancomycin micro: all Cx NGTD Vancomycin Plan/Comments: Patient had a trough drawn which resulted in a value of 15.8 (goal 15-20). The patient is within their therapeutic trough goal. Will continue current dose of 1750mg IV Q12hr and recheck a trough in a couple days to assess dosing at that time. Pending Level: 02/20/22 @0930 Pharmacy Service will continue to monitor and adjust dosing as required.
== END 2022-02-18 14:09 | disposition home or self-care (01) ==
LOC: ED 21:55 → MS3 23:02
PROVIDERS: Admitting Provider Internal Medicine; Emergency Provider Emergency Medicine; PCP Family Medicine; Visit Provider Internal Medicine
DX: J18.9 Pneumonia, unspecified organism (principal); Z87.891 Personal history of nicotine dependence; D64.9 Anemia, unspecified; Z78.9 Other specified health status
CPT/HCPCS: 36415; 71045; 71275; 80048; 80076; 80202; 83605; 83735; 84100; 85025; 85610; 87040; 87449; 87633; 87635; 87641; 87811; 93005; 94640; 94667; 94668; 96361; 96365; 96366; 96367; 96372; 96375; 99218; 99251; 99285; J7030; J7040; J7050; Q9967; A4216; G0378; G0463; U0003; U0005

== ENCOUNTER → 2022-04-11 | Outpatient (CLI) | payer BC, SELFPAY ==
--- NOTE | 2022-04-14 09:14 | PFT ---
INTRODUCTION: The patient is a 61-year-old male who presented for pulmonary function studies secondary to a diagnosis of COPD. Respiratory therapy reported good patient effort. Bronchodilators were used during testing. INTERPRETATION: Forced expiration spirometry demonstrates the presence of a moderate large airways obstructive ventilatory defect. There was no significant response to aerosolized bronchodilators. Spirograms are of good quality and plateau gradually indicating slow emptying of the lungs. Body plethysmography was performed and revealed a decreased TLC to 4.33 L, 60% of predicted, indicative of a moderate restrictive ventilatory impairment. Diffusing capacity by single breath CO is reduced at 68% of predicted. IMPRESSION: Irreversible moderate mixed ventilatory defect with mild reduction in diffusing capacity.
== END | disposition home or self-care (01) ==
PROVIDERS: PCP Family Medicine; Referring Provider Internal Medicine Critical Care Medicine; Visit Provider Internal Medicine Critical Care Medicine
DX: J18.9 Pneumonia, unspecified organism (principal); J44.9 Chronic obstructive pulmonary disease, unspecified
CPT/HCPCS: 94060; 94726; 94729

== ENCOUNTER → 2022-05-07 | Outpatient (CLI) | payer BC, SELFPAY ==
--- NOTE | 2022-05-07 12:51 | CT_ITS ---
STUDY: CT CHEST WITHOUT CONTRAST REASON FOR EXAM: Male, 61 years old. Document resolution- high risk cancer RADIATION DOSAGE (If Supplied By Facility): CTDIvol = ( 14.72 ) mGy, DLP = ( 544.26 ) mGycm TECHNIQUE: Transaxial imaging was performed without the administration of intravenous contrast material. Multiplanar coronal and sagittal images were reformatted. Individualized dose optimization techniques were used for this CT. COMPARISON: Comparison is made with prior examination dated 02/17/2022. FINDINGS: CHEST Since prior examination, there has been a moderate degree of improvement of the irregular infiltration in the left upper lobe. The previously seen infiltration in the left lower lobe has cleared. The right lung is clear. Mild degree of emphysematous changes worse in the upper lobes. There is no demonstrated pleural abnormality. There are calcifications of the coronary arteries. Normal mediastinum. Normal hilar regions. Normal unenhanced pulmonary arteries. There is atherosclerotic calcification of the aortic arch with tortuosity and elongation of the aortic arch and descending thoracic aorta. There are mild degenerative changes of the thoracic spine. There is no demonstrated abnormality of the visualized upper abdomen. CT/Chest without Contrast IMPRESSION: Interval improvement in the dense consolidation in the left upper lobe as well as focal infiltrate in the left lower lobe. Cartilaginous process. Further follow-up recommended. Electronically Signed: Gideon Pompa MD at 15:03 EDT ,
== END | disposition home or self-care (01) ==
LOC: CT 12:50
PROVIDERS: PCP Family Medicine; Referring Provider Internal Medicine Critical Care Medicine; Visit Provider Internal Medicine Critical Care Medicine
DX: J18.9 Pneumonia, unspecified organism (principal)
CPT/HCPCS: 71250

== ENCOUNTER → 2022-08-05 | Outpatient (CLI) | payer BC, SELFPAY ==
--- NOTE | 2022-08-05 11:25 | RAD_ITS ---
EXAM: XR LEFT SHOULDER COMPLETE, 2 OR MORE VIEWS CLINICAL INDICATION: PAIN TECHNIQUE: Two or more views of the left shoulder. This report was created using [employer] report generation technology. COMPARISON: None. FINDINGS: BONES/JOINTS: Unremarkable. No acute fracture. No subluxation. Normal alignment. Preservation of the joint space. No sclerotic or destructive changes observed. SOFT TISSUES: Unremarkable. No soft tissue swelling or gas. No radiopaque foreign body. RAD/Shoulder min 2 Views IMPRESSION: Negative left shoulder x-rays. Electronically Signed: Steve Mtz MD at 17:24 EST ,
--- NOTE | 2022-08-05 11:25 | RAD_ITS ---
EXAM: XR LEFT HUMERUS, 2 OR MORE VIEWS CLINICAL INDICATION: PAIN TECHNIQUE: Frontal and lateral views of the left humerus. This report was created using [employer] report generation technology. COMPARISON: None. FINDINGS: BONES/JOINTS: Unremarkable. No acute fracture. No subluxation. Normal alignment. Preservation of the joint space. No sclerotic or destructive changes observed. SOFT TISSUES: Unremarkable. No soft tissue swelling or gas. No radiopaque foreign body. RAD/Humerus min 2 Views IMPRESSION: Negative left humerus x-rays. Electronically Signed: Steve Mtz MD at 17:24 EST ,
== END | disposition home or self-care (01) ==
LOC: MTRAD 11:24
PROVIDERS: PCP Family Medicine; Referring Provider Family Medicine; Visit Provider Family Medicine
DX: M25.512 Pain in left shoulder (principal); M79.602 Pain in left arm
CPT/HCPCS: 73030; 73060

== ENCOUNTER → 2022-09-15 | Outpatient (CLI) | payer BC, SELFPAY ==
--- NOTE | 2022-09-15 16:56 | NEURO_ITS ---
NCS and/or EMG Patient Report Ordering Doctor: Nikita Melo DATE OF SERVICE: 09/15/22 Indication: Left shoulder pain and tightness. Occasional radiation down the lateral aspect of the arm. Findings: Nerve conduction studies were performed in the left upper extremity. The left median motor study recording the abductor pollicis brevis showed a normal amplitude, prolonged distal latency and normal conduction velocity. The left ulnar motor study recording the abductor digiti minimi showed a normal amplitude, normal distal latency and normal conduction velocity. No conduction block or focal slowing was present across the elbow. The left median sensory response recording digit two showed a normal amplitude, normal latency and slowed conduction velocity. The left ulnar sensory response recording digit five showed a normal amplitude, latency and conduction velocity. The right radial sensory response recording over the extensor snuff box showed a normal amplitude, latency and conduction velocity. As routine median motor and sensory studies only demonstrated mild abnormalities, additional internal comparison studies were done to confirm this finding. The left median-ulnar lumbrical / interosseous motor latencies showed a prolonged median latency compared to the ulnar. Needle EMG of the left upper extremity and cervical paraspinal muscles was performed. Active denervation was present in the deltoid, brachioradialis, biceps muscles. Active denervation was also present in the mid-cervical pa raspinal muscles. Motor units were large and long with reduced recruitment in the deltoid and biceps. Motor units in the brachioradialis were normal morphology, but was slightly reduced recruitment. All other muscles were normal. Impression: This is an abnormal study. There is electrophysiologic evidence consistent with: 1. A mild, left median neuropathy across the wrist. 2. A moderate, left C5-6 radiculopathy with active features. Tylor Bah D.O. Multi Select Codes Neurology Neurology Interp Codes: 83185-63 Musc test done w/n test comp (interp) and 22483-92 Nrv cndj test 7-8 studies (interp)
== END | disposition home or self-care (01) ==
LOC: PSN 15:06
PROVIDERS: PCP Family Medicine; Visit Provider Family Medicine
DX: M54.2 Cervicalgia (principal); M25.512 Pain in left shoulder; R20.2 Paresthesia of skin
CPT/HCPCS: 95886; 95910

== ENCOUNTER 2023-06-11 08:22 | Emergency (ER) | payer BC, SELFPAY ==
[2023-06-11 08:23] VITALS: BP 174/93; PULSE 64; RESP 16; TEMP 36.3; O2SAT 98; BMI 30.6
--- NOTE | 2023-06-11 08:30 | RAD_ITS ---
HISTORY: chest pain. TECHNIQUE: XR Chest 1 View. COMPARISON: 02/16/2022. FINDINGS: CARDIOMEDIASTINAL BORDERS: Cardiac silhouette within normal limits in size. Mediastinal contour unremarkable. LUNGS: Mild left upper lobe scarring. PLEURA: No pleural effusion or pneumothorax seen. OSSEOUS STRUCTURES: Unremarkable. RAD/Chest 1 View (Portable) IMPRESSION: No acute cardiopulmonary process identified. Electronically Signed: Annabelle Posada MD at 9:18 EST ,
[2023-06-11 08:31] VITALS: O2SAT 98
[2023-06-11 08:38] LABS: Absolute Lymphocyte Count 3.32 X10^3/uL (0.83-4.51); Absolute Neutrophil Count 6.4 X10^3/uL (2.0-7.7); Basophil# 0.09 X10^3/uL; Basophil% 0.8 % (0-1); Eosinophil# 0.16 X10^3/uL; Eosinophils% 1.5 % (0-5); Hematocrit 47.5 % (40-54); Hemoglobin 16.1 g/dL (13.0-16.5); Lymphocyte # 3.32 X10^3/ul (0.83-4.51); Lymphocyte % 30.6 % (19-41); Mean Corp Hgb Conc 33.9 g/dL (32-36); Mean Corpuscular Hgb 30.3 pg (27.0-32.0); Mean Corpuscular Volume 89.3 fL (80-94); Mean Platelet Vol. 9.8 fl (6.2-12.0); Monocyte# 0.82 X10^3/uL; Monocyte% 7.6 % (0-10); NRBC Flagged by Analyzer 0 % (0-5); Neutrophil # 6.38 X10^3/uL (2.7-7.7); Neutrophil % 58.7 % (47-70); POSITIVE MORPHOLOGY YES; Platelet Count 154 K/mm3 (150-450); RBC Distribution Width CV 13.4 % (11.6-14.6); RBC Distribution Width SD 43.8 fl (35.1-43.9); Red Blood Count 5.32 M/mm3 (4.6-6.2); White Blood Count 10.9 K/mm3 (4.4-11.0)
[2023-06-11 08:40] LABS: Differential Indicated SCAN CRITERIA MET
--- NOTE | 2023-06-11 08:53 | CT_ITS ---
STUDY: CTA HEAD AND NECK WITH CONTRAST REASON FOR EXAM: Male, 62 years old. Headache carotid disease RADIATION DOSAGE (If Supplied By Facility): CTDIvol = ( 27.91 ) mGy, DLP = ( 1567.22 ) mGycm TECHNIQUE: CT angiography was performed with a multi-detector CT scanner. Data acquisition was obtained from the skull base through the vertex following intravenous administration of IV 100mL [id number]-[id number]. MIP images were reconstructed from the axial data set. Post-processing of the angiographic images was performed, with multiplanar reformation and 3D reconstruction. Individualized dose optimization techniques were used for this CT. COMPARISON: No relevant priors. FINDINGS: Normal bilateral petrous carotid arteries. There is calcified plaque formation of the right cavernous carotid artery, without a cross-sectional luminal stenosis. There is calcified plaque formation of the left cavernous carotid artery, without a cross-sectional luminal stenosis. Normal right A1 segments of the anterior cerebral artery. Normal left A1 segments of the anterior cerebral artery. Normal intact anterior communicating artery (ACOM). Normal bilateral A2 segments of the anterior cerebral arteries. Normal right M1 and M2 segments of the middle cerebral arteries, with a normal M1 bifurcation. Normal left M1 and M2 segments of the middle cerebral arteries, with a normal M1 bifurcation. Normal right posterior communicating artery (PCOM). Normal left posterior communicating artery (PCOM). Normal bilateral vertebral arteries. Normal basilar artery with a normal basilar bifurcation. The visualized bilateral superior cerebellar (SCA) arteries are normal. Normal bilateral P1, P2 and visualized P3 segments of the posterior cerebral arteries. There is no demonstrated aneurysm of the [place]. On the CT scan of the brain, there is a moderate degree of enlargement of the cisterna magna in the posterior fossa. No acute abnormality is seen within the unenhanced brain. AORTIC ARCH: There is atherosclerotic calcific plaque formation of the aortic arch and great vessels arising from the aortic arch, without a hemodynamically significant stenosis. There is a normal origin of the brachiocephalic, left common carotid, and left subclavian arteries. Mild degree of atherosclerotic plaque formation at the origin of the left subclavian artery. RIGHT CAROTID ARTERIES: Normal right common carotid artery (CCA). Normal right common carotid bulb. There is mild atherosclerotic plaque formation of the origin of the right internal carotid artery with less than 50% cross sectional diameter stenosis. Normal visualized cervical portion of the right internal carotid artery. Normal origin of the right external carotid artery (ECA). LEFT CAROTID ARTERIES: Normal left common carotid artery (CCA). Normal left common carotid bulb. There is mild atherosclerotic plaque formation of the origin of the left internal carotid artery with less than 50% cross sectional diameter stenosis. Normal visualized cervical portion of the left internal carotid artery. Normal origin of the left external carotid artery (ECA). VERTEBRAL ARTERIES: There is enhancement within the bilateral vertebral arteries with a small left vertebral artery, and a dominant right vertebral artery. CT/CTA Head AND Neck W/ Contrast IMPRESSION: Prominence of the cisterna magna and the posterior fossa. Mild with calcific plaque at the origin of both the right and left internal carotid arteries causing less than 50% narrowing. Electronically Signed: Gideon Popma MD at 9:40 EST ,
[2023-06-11 08:54] LABS: Differential Comment SCANNED; Reactive Lymphocyte 1+
--- NOTE | 2023-06-11 08:54 | ED.VIS.CHEST ---
HPI History of Present Illness Chief Complaint: Chest Pain Informant: patient and spouse/S.O. Narrative Narrative: 62-year-old male presenting to the emergency department chief complaint of chest pressure. Patient states that this morning he was sitting outside smoking a cigarette he felt 10 minutes of chest pressure which she describes as going from axilla to axilla. States it was across the front. No sweating or shortness of breath. 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 He states that he went to his doctor's has been hearing a swooshing noise in his ears. He saw ENT had a normal hearing test. He states he was advised that he should have his carotids checked as the swooshing that he describes coincides with his heart rate. He states that his blood pressure when he saw his nurse practitioner with her primary care was around 140 systolic. He states that he is not typically treated for high blood pressure. He has had high cholesterol in the past but states that his last test showed that it is normalized. He does have a history of COPD but has not caused really any problems that required management except for last year when he was hospitalized with pneumonia. He Does not relate an exertional component. He states over the past couple weeks has had approximately 5 episodes of the chest pressure. He states that he has red eyes which is not normal for him. No pain. He has an eye examination scheduled in about 1-1/2 weeks. [facility] Medical History (Updated 06/11/23 @ 12:[address] Matt Coats DO) Stage 2 moderate COPD by GOLD classification Home Medications albuterol sulfate 90 mcg/actuation aerosol inhaler 2 puff inhalation Q4H PRN shortness of breath or wheezing #8.5 grams 06/11/22 [Rx Last Taken Unknown] meclizine 25 mg tablet mg 06/11/23 [History Last Taken 06/10/23 12.5 mg] Allergy/AdvReac Type Severity Reaction Status Date / Time erythromycin base Allergy Rash Verified 06/11/23 08:28 [Erythromycin Base] Family History Father Cancer Mother Abnormal respiratory function Social History Smoking Status: Current every day smoker tobacco type: cigarettes ROS ROS ED Constitutional Constitutional ED: Denies chills or weight loss Eyes Eyes: Reports other Details: Red eyes ; Denies change in vision or diplopia ENT ENT ED: Reports other Details: Swooshing noise in ears ; Denies ear pain, rhinorrhea or sore throat Cardiovascular Cardiovascular: Reports chest pain; Denies orthopnea, palpitations or racing heartbeat Respiratory/Chest Respiratory/Chest: Denies cough, dyspnea or orthopnea Gastrointestinal Gastrointestinal: Denies abdominal pain, diarrhea, nausea or vomiting Genitourinary Genitourinary ED: Denies dysuria, hematuria or urinary frequency Musculoskeletal Musculoskeletal: Denies arthralgias or myalgias Integumentary Denies abscess or rash Neurologic Neurologic: Reports headache(s); Denies weakness Psychiatric Psychiatric: Denies anxiety, depression, suicidal ideation or suicidal thoughts Endocrine Endocrinology: Denies polydipsia, polyphagia or polyuria Allergic/Immunologic Allergic/Immunologic ED: Denies mouth swelling, tongue swelling or urticaria EXAM Physical Exam Const Vital Signs: 06/11/23 08:23 06/11/23 08:27 06/11/23 08:31 Temperature 97.3 F L Temperature Source Temporal Pulse Rate 64 Respiratory Rate 16 Respiratory Effort Normal Non-Labored Blood Pressure 174/93 H Blood Pressure Mean 120 Pulse Ox 98 98 Oxygen Delivery Method Room Air Room Air 06/11/23 12:22 06/11/23 12:43 Temperature 97.6 F L Temperature Source Pulse Rate 97 64 Respiratory Rate 14 16 Respiratory Effort Blood Pressure 126/78 H 134/78 H Blood Pressure Mean 94 96 Pulse Ox 98 99 Oxygen Delivery Method Room Air Positive well nourished and well developed General Appearance ED: well developed HEENT Reports normocephalic, head/scalp atraumatic and moist mucous membranes Eyes PERRL and EOMs intact bilaterally Neck no lymphadenopathy, supple and no JVD Resp normal respiratory effort and clear to auscultation bilaterally Cardio regular rate, regular rhythm and no murmurs GI normal to inspection, nondistended, normoactive bowel sounds and non-tender Palpation: soft Back/Spine no CVA tenderness and normal ROM Extremity normal to inspection General Extremety ED: Negative for edema General Extremity: Negative for edema Neuro oriented x3 and CN's II-XII intact bilaterally Sensorium / Orientation: alert Motor Exam: strength 5/5 throughout Psych mental status grossly normal Mood & Affect: Negative for depressed or tearful Skin no rashes or lesions noted and no wounds MDM MDM MDM Narrative Medical decision making narrative: My independent interpretation of the chest x-ray is no acute disease. Chronic changes noted. 2 sets of cardiac enzymes are negative. Normal creatinine. Glucose 107. Not anemic. White count [address] of the brain/CTA head and neck shows no significant carotid stenosis. No vertebral artery dissection or injury noted. No brain masses. Patient had no events on the monitor. At this point I reassessed his blood pressure and he is down to basically 120/80 range. I do not know if he is having episodic hypertension that has resulted in this atypical chest pain. It is not exertional in nature. He does not develop shortness of breath sweating nausea with it. I cannot say that I find evidence to diagnose the swooshing noise in his ears. He states that is constant. At this point I would recommend the patient follow-up with primary care. He is to monitor his blood pressure particularly during the episodes of the chest pain. If they become different than they have been I would recommend him come to emergency again. He should discuss cardiac stress testing with his doctor. History & Record Review Discussion w/independent historian: Patient and Family Lab Data Attestation: I reviewed the patient's lab results. Labs: Laboratory Results - last 24 hr 06/11/23 06/11/23 08:25 10:47 WBC 10.9 RBC 5.32 Hgb 16.1 Hct 47.5 MCV 89.3 MCH 30.3 MCHC 33.9 RDW Std Deviation 43.8 RDW Coeff of Enriqueta 13.4 Plt Count 154 MPV 9.8 Immature Gran % (Auto) 0.800 Neut % (Auto) 58.7 Lymph % (Auto) 30.6 [place] % (Auto) 7.6 Eos % (Auto) 1.5 Baso % (Auto) 0.8 Absolute Neuts (auto) 6.4 Absolute Lymphs (auto) 3.32 Nucleated RBC % 0 Differential Comment SCANNED Reactive Lymphocytes 1+ Sodium 135 L Potassium 4.4 Chloride 107 Carbon Dioxide 25.0 Anion Gap 3 L BUN 21 H Creatinine 1.13 Estim Creat Clear Calc 75.35 Est GFR (MDRD) Af Amer 85 Est GFR (MDRD) Non-Af 70 BUN/Creatinine Ratio 18.6 Glucose 107 H Calcium 9.1 Troponin I High Sens 6 7 Radiography Diagnostic Testing: Clinical Impression(s) from Imaging Studies Chest X-Ray 06/11/23 08:30 IMPRESSION: No acute cardiopulmonary process identified. Electronically Signed: Annabelle Posada MD at 9:18 EST , Head/Neck CTA 06/11/23 08:53 IMPRESSION: Prominence of the cisterna magna and the posterior fossa. Mild with calcific plaque at the origin of both the right and left internal carotid arteries causing less than 50% narrowing. Electronically Signed: Gideon Pompa MD at 9:40 EST , EKG Initial EKG: Attestation: I personally reviewed and interpreted this EKG as follows: Comments: Normal sinus rhythm with a ventricular rate of 64 bpm. No definitive features of ACS noted. Prior EKG tracings: available for review Prior: Unchanged (02/16/2022) Discharge Plan Triage Chief Complaint: Chest Pain ED Provider: Matt Coats Dx/Rx/DC Orders Clinical Impression: Chest pain, Hypertension Instructions: Blood Pressure Check Steps Prescriptions: No Action albuterol sulfate 90 mcg/actuation HFA aerosol inhaler 2 puff inhalation Q4H PRN (Reason: shortness of breath or wheezing) Qty: 8.5 0RF meclizine 25 mg tablet Patient Comments: TAKE 1/2 TO 1 TABLET BY MOUTH 3 TIMES DAILY NEEDED FOR DIZZINESS Primary Care Provider: Nikita Melo Referrals: Nikita Melo [[facility]] - As soon as possible Activity Restrictions/Additional Instructions: If you develop the chest pain again. Please check your blood pressure and heart rate. If the symptomology changes or last longer please return to the emergency department. I recommend following up with your family doctor to discuss cardiac stress testing as well as cholesterol check. Please inform your doctor that today you had a CTA of your neck that did not show any significant carotid stenosis. Disposition Disposition: Home, Self Care Discharge Date/Time: 06/11/23 12:48
[2023-06-11 08:57] LABS: Anion Gap 3 (5-15); BUN 21 mg/dL (7-18); BUN/Creat Ratio 18.6 RATIO (10-20); Calcium,Total 9.1 mg/dL (8.5-10.1); Chloride 107 mmol/L (98-107); Creatinine, Serum 1.13 mg/dL (0.70-1.30); EST Glomerular Filtration Rate 70 mL/min (>60); Est Glom Filt Rate - Afr Amer 85 mL/min (>60); Estimated Creatinine Clearance 75.35 ml/min; Glucose 107 mg/dL (74-106); Potassium 4.4 mmol/L (3.5-5.1); Sodium Level 135 mmol/L (136-145); Troponin-I HS (w/2H Reflex) 6 pg/mL (3.0-78.0)
[2023-06-11 10:35] LABS: Reflex Troponin-HS? (from REC) Y
[2023-06-11 11:13] LABS: Troponin-I HS 7 pg/mL (3.0-78.0)
[2023-06-11 12:22] VITALS: BP 126/78; PULSE 97; RESP 14; O2SAT 98
[2023-06-11 12:43] VITALS: BP 134/78; PULSE 64; RESP 16; TEMP 36.4; O2SAT 99
== END 2023-06-11 12:48 | disposition home or self-care (01) ==
PROVIDERS: Emergency Provider Emergency Medicine; PCP Family Medicine; Visit Provider Emergency Medicine
DX: R07.9 Chest pain, unspecified (principal); J44.9 Chronic obstructive pulmonary disease, unspecified; I10 Essential (primary) hypertension; F17.210 Nicotine dependence, cigarettes, uncomplicated
CPT/HCPCS: 70496; 70498; 71045; 80048; 84484; 85025; 93005; 99284; Q9967; A4216

== ENCOUNTER → 2023-06-16 | Outpatient (CLI) | payer BC, SELFPAY ==
[2023-06-16 11:35] LABS: Absolute Lymphocyte Count 2.94 X10^3/uL (0.83-4.51); Absolute Neutrophil Count 5.2 X10^3/uL (2.0-7.7); Basophil# 0.08 X10^3/uL; Basophil% 0.8 % (0-1); Eosinophil# 0.14 X10^3/uL; Eosinophils% 1.5 % (0-5); Hemoglobin 15.2 g/dL (13.0-16.5); Lymphocyte # 2.94 X10^3/ul (0.83-4.51); Lymphocyte % 30.8 % (19-41); Mean Corp Hgb Conc 32.3 g/dL (32-36); Mean Corpuscular Hgb 29.7 pg (27.0-32.0); Monocyte# 1.15 X10^3/uL; Monocyte% 12.1 % (0-10); NRBC Flagged by Analyzer 0 % (0-5); Neutrophil # 5.17 X10^3/uL (2.7-7.7); Neutrophil % 54.2 % (47-70); POSITIVE MORPHOLOGY YES; Platelet Count 162 K/mm3 (150-450); RBC Distribution Width CV 13.3 % (11.6-14.6); RBC Distribution Width SD 45.3 fl (35.1-43.9); Red Blood Count 5.11 M/mm3 (4.6-6.2); White Blood Count 9.5 K/mm3 (4.4-11.0)
[2023-06-16 11:39] LABS: Differential Indicated SCAN CRITERIA MET
[2023-06-16 11:46] LABS: Differential Comment SCANNED; Reactive Lymphocyte 1+
[2023-06-16 12:13] LABS: ALB/GLOB Ratio 1.1 RATIO (0.9-2.4); AST(SGOT) 16 U/L (15-37); Alanine Aminotransfer ALT/SGPT 27 U/L (16-61); Albumin, Serum 3.9 g/dL (3.2-5.0); Alkaline Phosphatase 96 U/L (45-117); Anion Gap 2 (5-15); BUN 18 mg/dL (7-18); BUN/Creat Ratio 18.4 RATIO (10-20); Calcium,Total 8.7 mg/dL (8.5-10.1); Chloride 108 mmol/L (98-107); Cholesterol 183 mg/dL (200); Creatinine, Serum 0.98 mg/dL (0.70-1.30); EST Glomerular Filtration Rate 83 mL/min (>60); Est Glom Filt Rate - Afr Amer 100 mL/min (>60); Globulin 3.5 g/dL (2.2-4.2); Glucose 92 mg/dL (74-106); High Density Lipoprotein 39 mg/dL; Potassium 4.3 mmol/L (3.5-5.1); Protein, Total 7.4 g/dL (6.4-8.2); Sodium Level 139 mmol/L (136-145); Triglycerides 98 mg/dL; Very Low Density Lipoprotein 20 mg/dL (5-40)
== END | disposition home or self-care (01) ==
LOC: LAB 10:53
PROVIDERS: PCP Family Medicine; Referring Provider Nurse Practitioner Family; Visit Provider Nurse Practitioner Family
DX: E78.5 Hyperlipidemia, unspecified (principal); I10 Essential (primary) hypertension
CPT/HCPCS: 36415; 80053; 80061; 85025

== ENCOUNTER 2023-07-14 05:38 | Emergency (ER) | payer OTHER, SELFPAY ==
[2023-07-14 05:39] VITALS: BP 155/88; PULSE 79; RESP 18; TEMP 36.3; O2SAT 96; BMI 31.6
--- NOTE | 2023-07-14 06:01 | EKG12_ITS ---
Test Reason : DYSRHYTHMIA Blood Pressure : / mmHG Vent. Rate : 072 BPM Atrial Rate : 072 BPM P-R Int : 154 ms QRS Dur : 088 ms QT Int : 394 ms P-R-T Axes : 057 014 027 degrees QTc Int : 431 ms Normal sinus rhythm with sinus arrhythmia Possible Left atrial enlargement Borderline ECG Confirmed by PAU MOYER, JENNIFER ([id number]), graphic editor TIM FULLER ([id number]) on 07/15/2023 9:07:12 AM Referred By: SEKOU Confirmed By:JENNIFER MAI MD
--- NOTE | 2023-07-14 06:03 | EX.ED.DYSGE1 ---
HPI History of Present Illness Chief Complaint: Dizziness Narrative Narrative: 62-year-old male past medical history of being a smoker presents with multiple somatic complaints ranging from a whooshing noise in his ears, lightheadedness and dizziness, and blurred vision that has had for the last month. He states 3 weeks ago he was seen in the emergency department for chest pain. He had a workup including CT of the brain/CTA of the brain and neck as well and was discharged to follow-up with his primary care provider. He did so, and states that he had his ears looked at and they did not see anything peculiar. He was then referred to otolaryngology who also worked him up for the whooshing noise and was given a diagnosis of pulsatile tinnitus. At that time he had elevated blood pressure which came down to normal on his own, so is not started on any medication. He states he has a pinched nerve in his neck and had nerve conduction studies done during the summer. Hence, he already sees a neurologist. He also went to the eye doctor for the blurred vision and they saw nothing wrong with his retinal exam or the veins and arteries in his eyes, no reason for his blurred vision. He presents to the emergency department today wanting answers for his pulsatile tinnitus and the symptoms that he has been having for a month. He denies any new symptoms such as fever, no nausea or vomiting, no diarrhea. [facility] Medical History Stage 2 moderate COPD by GOLD classification Home Medications albuterol sulfate 90 mcg/actuation aerosol inhaler 2 puff inhalation Q4H PRN shortness of breath or wheezing #8.5 grams 06/11/22 [Rx Last Taken Unknown] meclizine 25 mg tablet mg 06/11/23 [History Last Taken 06/10/23 12.5 mg] hydroxyzine pamoate 25 mg capsule (Vistaril) 25 mg PO BID PRN anxiety #14 caps 07/14/23 [Rx Last Taken Unknown] Allergy/AdvReac Type Severity Reaction Status Date / Time erythromycin base Allergy Rash Verified 07/14/23 05:39 [Erythromycin Base] Family History Father Cancer Mother Abnormal respiratory function Social History Smoking Status: Current every day smoker tobacco type: cigarettes ROS ROS ED ROS Narrative Constitutional: No fever, no chills. HEENT: No sore throat. No neck pain. No loss of vision. No rhinorrhea. Cardiovascular: 1 episode of chest pain. No palpitations. No pedal edema. Respiratory: No cough, no shortness of breath. Abdominal: No abdominal pain. No nausea. No vomiting. Genitourinary: No dysuria. No hematuria. Musculoskeletal: No myalgias. No arthralgias. Neurologic: No headaches. No lightheadedness and dizziness. Reported blurred vision. Whooshing noise in the ears. In tune with pulse. Skin: No rash. No change in color. Psychiatric: No depression. No anxiety. EXAM Physical Exam Narrative Exam Narrative: Afebrile. Vital signs noted. HEENT: Normocephalic. Atraumatic. PERRL, EOMI. Neck soft and supple. No point tenderness or step off. Cardiovascular: Regular rate and rhythm. No murmurs, rubs, or gallops appreciated. Respiratory: No tachypnea. Lungs clear to auscultation bilaterally. Gastrointestinal: Abdomen soft, nontender, with normoactive bowel sounds. No rebound or guarding. Neurological: Awake. Alert. Nonfocal, nonlateralizing. Skin: No rash. Normal color. No pallor. Musculoskeletal: No pedal edema. Full range of motion extremities. Const Vital Signs: 07/14/23 05:39 07/14/23 05:42 07/14/23 06:38 Temperature 97.3 F L Temperature Source Temporal Pulse Rate 79 71 Respiratory Rate 18 18 Respiratory Effort Normal Non-Labored Respiratory Pattern Normal Blood Pressure 155/88 H 177/76 H Blood Pressure Mean 110 109 Pulse Ox 96 95 Oxygen Delivery Method Room Air MDM MDM MDM Narrative Medical decision making narrative: I reviewed the patient's prior workup. He had an extensive workup including CTA of the head and neck and CT of the brain. His high-sensitivity troponins were negative. These were the same symptoms that he has had over the last month. He states that he did not know what pulsatile tinnitus meant so I explained to him that this is merely ringing of his ears in tune with his pulse like he had stated. I do not feel that CT of the brain is indicated again as he has a nonfocal and nonlateralizing physical exam, and it is the same symptoms he has had before he was worked up 3 weeks ago. I have low suspicion for intracranial hemorrhage or mass as I reviewed the CT report from prior. I discussed with him that we will repeat chest pain workup with 1 troponin just to make sure that nothing else is changed. It is hoped that this will be more reassuring for him. EKG was obtained and interpreted by myself independently as normal sinus rhythm with sinus arrhythmia at 72 bpm without other ectopy or acute ST changes. No STEMI. No significant change from EKG/previous EKG from June. Grade 1 view interpreted by myself independently shows no evidence of acute process, no pneumonia or pneumothorax. I reviewed the radiology report which confirms my independent interpretation. I reviewed his laboratory work and he has a slightly elevated white count of 12.0 which I think is nonspecific. He states he is currently taking prednisone so he may be having slight elevation of his white count from that. Hemoglobin normal at 15.9, hematocrit 46.9. Platelet count normal at 169. Electrolyte panel is grossly unremarkable except for chloride 108 which I think is nonspecific and that is the value that it was previously. Glucose is appropriately elevated at 114 with a normal anion gap of 8. He has slightly elevated bilirubin of 1.3, however it has been higher in the past. High-sensitivity troponin is 6. 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 At this point in time, I feel he can be discharged safely home with follow-up. He relates some of this to stress and anxiety, although he has not been working for the last 2 months secondary to the pain in his arm. I will write him prescription for Vistaril to try twice a day for stress and anxiety. This may explain some of his symptomatology as well. I feel he can be discharged safely home with follow-up. Return instructions to the emergency department were reviewed. Disposition is discharged home in stable condition. History & Record Review Discussion w/independent historian: Patient Additional record(s) reviewed:: Prior ED visit and Prior labs Lab Data Attestation: I reviewed the patient's lab results. Labs: Laboratory Results - last 24 hr 07/14/23 06:10 WBC 12.0 H RBC 5.21 Hgb 15.8 Hct 46.9 MCV 90.0 MCH 30.3 MCHC 33.7 RDW Std Deviation 45.8 H RDW Coeff of Enriqueta 13.7 Plt Count 169 MPV 9.3 Immature Gran % (Auto) 1.300 H Neut % (Auto) 73.0 H Lymph % (Auto) 18.0 L [place] % (Auto) 6.1 Eos % (Auto) 0.9 Baso % (Auto) 0.7 Absolute Neuts (auto) 8.7 H Absolute Lymphs (auto) 2.15 Nucleated RBC % 0 Sodium 139 Potassium 3.8 Chloride 108 H Carbon Dioxide 23.0 Anion Gap 8 BUN 14 Creatinine 0.99 Estim Creat Clear Calc 80.91 Est GFR (MDRD) Af Amer 98 Est GFR (MDRD) Non-Af 81 BUN/Creatinine Ratio 14.1 Glucose 114 H Calcium 8.7 Total Bilirubin 1.30 H AST 16 ALT 26 Alkaline Phosphatase 83 Troponin I High Sens 6 Total Protein 6.9 Albumin 3.7 Globulin 3.2 Albumin/Globulin Ratio 1.2 Radiography Diagnostic Testing: Clinical Impression(s) from Imaging Studies Chest X-Ray 07/14/23 06:20 IMPRESSION: No acute findings in the chest. Electronically Signed: Tk Green MD at 6:46 EST , Discharge Plan Triage Chief Complaint: Dizziness ED Provider: Sumit Dorado Dx/Rx/DC Orders Clinical Impression: Dizziness, Pulsatile tinnitus, Anxiety Instructions: Tinnitus (Ringing in the Ears), ED Dizziness, Uncertain Cause, ED Near-Fainting, Uncertain Cause Prescriptions: New hydroxyzine pamoate [Vistaril] 25 mg capsule 25 mg PO BID PRN (Reason: anxiety) Qty: 14 0RF No Action albuterol sulfate 90 mcg/actuation HFA aerosol inhaler 2 puff inhalation Q4H PRN (Reason: shortness of breath or wheezing) Qty: 8.5 0RF meclizine 25 mg tablet Patient Comments: TAKE 1/2 TO 1 TABLET BY MOUTH 3 TIMES DAILY NEEDED FOR DIZZINESS Primary Care Provider: Nikita Melo Referrals: Nikita Melo, [Primary Care Provider] - Disposition Disposition: Home, Self Care
[2023-07-14 06:17] LABS: Absolute Lymphocyte Count 2.15 X10^3/uL (0.83-4.51); Absolute Neutrophil Count 8.7 X10^3/uL (2.0-7.7); Basophil# 0.08 X10^3/uL; Basophil% 0.7 % (0-1); Eosinophil# 0.11 X10^3/uL; Eosinophils% 0.9 % (0-5); Hematocrit 46.9 % (40-54); Hemoglobin 15.8 g/dL (13.0-16.5); Lymphocyte # 2.15 X10^3/ul (0.83-4.51); Mean Corp Hgb Conc 33.7 g/dL (32-36); Mean Corpuscular Hgb 30.3 pg (27.0-32.0); Mean Platelet Vol. 9.3 fl (6.2-12.0); Monocyte# 0.73 X10^3/uL; Monocyte% 6.1 % (0-10); NRBC Flagged by Analyzer 0 % (0-5); Neutrophil # 8.74 X10^3/uL (2.7-7.7); Platelet Count 169 K/mm3 (150-450); RBC Distribution Width CV 13.7 % (11.6-14.6); RBC Distribution Width SD 45.8 fl (35.1-43.9); Red Blood Count 5.21 M/mm3 (4.6-6.2)
--- NOTE | 2023-07-14 06:20 | RAD_ITS ---
EXAM: XR CHEST, 1 VIEW CLINICAL INDICATION: chest pain TECHNIQUE: Frontal view of the chest. COMPARISON: Single view chest 06/11/2023 FINDINGS: LUNGS AND PLEURAL SPACES: Left apical scarring. No pneumothorax. No effusion. No acute airspace disease. HEART: Unremarkable. Cardiac silhouette not enlarged. MEDIASTINUM: Central airways and mediastinal contour are unremarkable. BONES/JOINTS: Unremarkable. No acute fracture. SOFT TISSUES: Unremarkable. RAD/Chest 1 View (Portable) IMPRESSION: No acute findings in the chest. Electronically Signed: Tk Green MD at 6:46 EST ,
[2023-07-14 06:38] VITALS: BP 177/76; PULSE 71; RESP 18; O2SAT 95
[2023-07-14 06:47] LABS: ALB/GLOB Ratio 1.2 RATIO (0.9-2.4); AST(SGOT) 16 U/L (15-37); Alanine Aminotransfer ALT/SGPT 26 U/L (16-61); Albumin, Serum 3.7 g/dL (3.2-5.0); Alkaline Phosphatase 83 U/L (45-117); Anion Gap 8 (5-15); BUN 14 mg/dL (7-18); BUN/Creat Ratio 14.1 RATIO (10-20); Calcium,Total 8.7 mg/dL (8.5-10.1); Chloride 108 mmol/L (98-107); Creatinine, Serum 0.99 mg/dL (0.70-1.30); EST Glomerular Filtration Rate 81 mL/min (>60); Est Glom Filt Rate - Afr Amer 98 mL/min (>60); Estimated Creatinine Clearance 80.91 ml/min; Globulin 3.2 g/dL (2.2-4.2); Glucose 114 mg/dL (74-106); Potassium 3.8 mmol/L (3.5-5.1); Protein, Total 6.9 g/dL (6.4-8.2); Sodium Level 139 mmol/L (136-145); Troponin-I HS (w/2H Reflex) 6 pg/mL (3.0-78.0)
--- OUTSIDE RECORDS SUMMARY | 2023-07-14 06:51 | XMS RPT_ITS | CCD ---
Author Name Unknown Address [address] [place] [address] Organization [facility] Care Team Providers Care Pairer Inspector Name Role Phone [facility] Unavailable Unavaila ble [facility] Unavailable Unavaila ble [facility] Unavailable Unavaila ble [facility] Unavailable Unavaila ble [facility] Unavailable Unavaila ble [facility] Unavailable Unavaila ble [facility] Unavailable Unavaila ble [facility] Unavailable Unavaila ble [facility] Unavailable Unavaila ble Blaz [employer] PLATE CUTTER.AIRCRAFT NAVIGATOR, DNP, Matt Primary Care Provider Hipolito Melo DO Primary Care Provider JASON FLORES Attending UnavailHIPOLITO Jeffrey Primary Care Unavailable WEST PIEDRA Referring Unavailable HIPOLITO MELO Primary Care Unavailable SOLOMON CHENG Referring Unavailable HIPOLITO MELO Primary Care Unavailable NICOLE WILLETT Attending Unavailable WEST PIEDRA Attending Unavailable HIPOLITO MELO Primary Care Unavailable MATT REYES Primary Care Unavailable Allergies Allergy Classification Reported Allergen(s) Allergy Type Date of Onset Reaction(s) Facility (6 sources) Erythromycin; Translations: [ERYTHROMYCIN] Drug Allergy 01-23-2006 Rash [facility] Work Phone: Medications Current Medications Medication Drug Class(es) Dates Sig (Normalized) Sig (Original) omeprazole 40 mg delayed release oral capsule (3 sources) Proton Pump Inhibitor Start: 10-01-2022 End: 11-13-2022 take 1 capsule by mouth once daily omeprazole (PRILOSEC) 40 mg capsule Take 1 capsule by mouth once daily. 30 capsule 2 10/14/2022 11/13/2022 Active Completed/Discontinued Medications Medication Drug Class(es) Dates Sig (Normalized) Sig (Original) [id number] 200 actuat albuterol 0.09 mg/actuat metered dose inhaler (3 sources) beta2-Adrenergic Agonist Start: 06-11-2022 albuterol HFA (PROVENTIL HFA, VENTOLIN HFA) 90 mcg/actuation inhaler Inhale 2 Puffs as instructed as needed. 0 06/11/2022 Active Problems Active Problems Problem Classification Problem Date Documented Da te Episodic/Chronic Disorders of lipid metabolism (4 sources) Hyperlipidemia; Translations: [Hyperlipidemia, unspecified] Onset: 11-23-2013 11-23-2013 Chronic Diverticulosis and diverticulitis (4 sources) Diverticular disease; Translations: [Diverticulosis of intestine, part unspecified, without perforation or abscess without bleeding] Onset: 03-31-2011 03-31-2011 Chronic Esophageal disorders (1 source) Gastro-esophageal reflux disease with esophagitis; Translations: [Gastroesophageal reflux disease with esophagitis without hemorrhage] Chronic Esophageal disorders (1 source) Esophageal disorders; Translations: [Gastroesophageal reflux disease with esophagitis without hemorrhage] Onset: 10-14-2022 Gastritis and duodenitis (2 sources) Chronic superficial gastritis; Translations: [Chronic superficial gastritis without bleeding] Onset: 10-14-2022 Chronic Malaise and fatigue (1 source) Other fatigue; Translations: [Lethargic infant] Onset: 12-22-2022 Episodic Other and unspecified benign neoplasm (4 sources) Benign neoplasm of colon; Translations: [Benign neoplasm of colon, unspecified] 07-01-2021 Episodic Other and unspecified benign neoplasm (6 sources) History of polyp of colon; Translations: [Personal history of colonic polyps] Onset: 11-16-2014 11-16-2014 Episodic Other and unspecified benign neoplasm (2 sources) Personal history of colonic polyps; Translations: [Personal history of colonic polyps] Onset: 11-16-2014 Episodic Other gastrointestinal disorders (3 sources) Abdominal bloating; Translations: [Abdominal distension (gaseous)] Episodic Other gastrointestinal disorders (2 sources) Altered bowel function; Translations: [Change in bowel habit] Episodic Other gastrointestinal disorders (3 sources) Abdominal distension (gaseous); Translations: [Bloating] Onset: 09-11-2022 Episodic Residual codes; unclassified (4 sources) Sleep apnea; Translations: [Sleep apnea, unspecified] Onset: 03-30-2006 03-30-2006 Chronic Substance-related disorders (4 sources) Tobacco user; Translations: [Nicotine dependence, unspecified, uncomplicated] Onset: 01-23-2006 01-23-2006 Chronic Past or Other Problems Problem Classification Problem Date Documented Da te Episodic/Chronic Abdominal pain (4 sources) Left lower quadrant pain; Translations: [Left lower quadrant pain] Onset: 09-14-2015 09-14-2015 Episodic Gastritis and duodenitis (4 sources) Acute gastritis; Translations: [Acute gastritis without bleeding] Onset: 04-27-2006 11-23-2013 Episodic Other gastrointestinal disorders (2 sources) Change in bowel habit; Translations: [Change in bowel habits] Onset: 09-11-2022 Episodic Results Test Name Value Interpretation Reference Range Facil ity Vital Signs Date Time Vital Sign Value Performing Clinician Faci lity 10-14-2022 09:46-0400 Body temperature 97.9 [degF] Nicole Brennon PA-C Work Phone: [facility] 10-14-2022 09:46-0400 Diastolic blood pressure 72 mm[Hg] Nicole [place] PA-C Work Phone: [facility] 10-14-2022 09:46-0400 Heart rate 67 /min Nicole [place] PA-C Work Phone: [facility] 10-14-2022 09:46-0400 SaO2% (BldA) [Mass fraction] 98 % Nicole Brennon PA-C Work Phone: [facility] 10-14-2022 09:46-0400 Systolic blood pressure 128 mm[Hg] Nicole [place] PA-C Work Phone: [facility] 10-01-2022 12:00-0400 Body temperature 98.4 [degF] West Piedra MD Work Phone: [facility] 10-01-2022 12:00-0400 Diastolic blood pressure 61 mm[Hg] West Piedra MD Work Phone: [facility] 10-01-2022 12:00-0400 Heart rate 57 /min West Piedra MD Work Phone: [facility] 10-01-2022 12:00-0400 Respiratory rate 21 /min West Piedra MD Work Phone: [facility] 10-01-2022 12:00-0400 SaO2% (BldA) [Mass fraction] 97 % West Piedra MD Work Phone: [facility] 10-01-2022 12:00-0400 Systolic blood pressure 109 mm[Hg] West Piedra MD Work Phone: [facility] 09-11-2022 07:33-0500 Body height 185.4 cm West Piedra MD Work Phone: [facility] 09-11-2022 07:33-0500 Body temperature 97.5 [degF] West Piedra MD Work Phone: [facility] 09-11-2022 07:33-0500 Body weight 102.51 kg West Piedra MD Work Phone: [facility] 09-11-2022 07:33-0500 Diastolic blood pressure 62 mm[Hg] West Piedra MD Work Phone: [facility] 09-11-2022 07:33-0500 Heart rate 76 /min West Piedra MD Work Phone: [facility] 09-11-2022 07:33-0500 SaO2% (BldA) [Mass fraction] 97 % West Piedra MD Work Phone: [facility] 09-11-2022 07:33-0500 Systolic blood pressure 112 mm[Hg] West Piedra MD Work Phone: [facility] Encounters Encounter Date Encounter Type Care Provider Facility Start: 12-22-2022 End: 12-23-2022 ambulatory [facility] Facility:[facility] Start: 10-14-2022 End: 10-15-2022 [facility] Facility:[facility] Start: 10-14-2022 End: 10-14-2022 Patient encounter procedure Nicole Willett PA-C Work Phone: General Surgery Procedures Date Procedure Procedure Detail Performing Clinician Start: 10-01-2022 Esophagogastroduodenoscopy transoral diagnostic West Piedra MD Work Phone: Start: 10-01-2022 Colonoscopy flx dx w/collj spec when pfrmd West Piedra MD Work Phone: Start: 10-01-2022 Colonoscopy West Piedra MD Work Phone: Start: 12-27-2020 Adult depression screening assessment Matt Reyes APRN.AIRCRAFT NAVIGATOR, DNP Work Phone: Start: 11-19-2018 Colonoscopy Matt Reyes APRN.AMANDO, BEKA Work Phone: Plan of Treatment Date Care Activity Detail Author Start: 10-02-2027 Colonoscopy COLONOSCOPY [facility] Start: 10-02-2027 COLORECTAL CANCER SCREENING COLORECTAL CANCER SCREENING [facility] Start: 02-08-2027 LIPID SCREEN LIPID SCREEN [facility] Start: 02-08-2027 PROSTATE CANCER SCREENING DISCUSSION PROSTATE CANCER SCREENING DISCUSSION [facility] Start: 12-27-2025 LIPID SCREEN LIPID SCREEN [facility] Start: 12-27-2025 PROSTATE CANCER SCREENING DISCUSSION PROSTATE CANCER SCREENING DISCUSSION [facility] Start: 12-13-2025 Urine microalbumin profile DTAP,TDAP,TD (3 - Td or Tdap) [facility] Start: 02-08-2025 DIABETES SCREEN DIABETES SCREEN [facility] Start: 12-28-2023 DIABETES SCREEN DIABETES SCREEN [facility] Start: 11-20-2023 Colonoscopy COLONOSCOPY [facility] Start: 11-20-2023 COLORECTAL CANCER SCREENING COLORECTAL CANCER SCREENING [facility] Start: 07-06-2022 DEPRESSION ASSESSMENT DEPRESSION ASSESSMENT [facility] Start: 03-06-2022 Influenza vaccination INFLUENZA (#1) [facility] Start: 12-27-2021 Adult depression screening assessment DEPRESSION SCREENING [facility] Start: 01-10-2017 PNEUMOCOCCAL (2 - PCV) PNEUMOCOCCAL (2 - PCV) [facility] Start: 2011 Influenza vaccination LUNG CANCER SCREENING [facility] Start: 2011 SHINGRIX VACCINE (1 of 2) SHINGRIX VACCINE (1 of 2) [facility] Start: 02-25-2007 FECAL OCCULT BLOOD FECAL OCCULT BLOOD [facility] Start: 2006 COLOGUARD (FIT-DNA) COLOGUARD (FIT-DNA) [facility] Start: [address] COLONOGRAPHY [facility] Start: 2006 SIGMOIDOSCOPY SIGMOIDOSCOPY [facility] End: 09-12-2023 COLONOSCOPY DIAGNOSTIC COLONOSCOPY DIAGNOSTIC Endoscopy Routine Bloating Change in bowel habits 1 Occurrences starting 09/11/2022 until 09/12/2023 [facility] Work Phone: Immunizations Immunization Date Immunization Notes Care Provider Fa shadi 01-11-2016 pneumococcal polysaccharide vaccine, 23 valent Matt Reyes APRN.[facility] Work Phone: [facility] Work Phone: 12-14-2015 tetanus toxoid, redu saima diphtheria toxoid, and acellular pertussis vaccine, adsorbed Matt Reyes APRN.[facility] Work Phone: [facility] 04-09-2010 influenza virus vacc ine, unspecified formulation Matt Reyes APRN.[facility] Work Phone: [facility] 04-17-2009 influenza virus vacc ine, unspecified formulation Matt Reyes APRN.[facility] Work Phone: [facility] 04-03-2003 diphtheria and tetan us toxoids, adsorbed for pediatric use Matt Reyes APRN.[facility] Work Phone: [facility] Work Phone: Payers Date Payer Category Payer Unknown [employer] PPO [id number] 2022-Present [phone] [address] [place] [address] PPO [id number] 2022 Unknown [id number] 2013 Unknown [employer] PPO OOS [id number] 2013-Present [phone] [address] [place] [address] PPO [id number] Social History Date Type Detail Facility Start: 11-16-1984 Tobacco smoking stat RUSTIS Smokes tobacco daily [facility] Start: 11-16-1984 History of tobacco use Cigarette Smo ker [facility] Start: 12-27-2020 End: 10-14-2022 Alcohol intake Current drinker of alcohol (finding) [facility] Start: 12-27-2020 End: 10-14-2022 Alcohol intake [facility] Start: 1960 Sex Assigned At Male C [facility] Work Phone: Start: 09-11-2022 Tobacco use and exposure Smokeless tobacco non-user [facility] Clinical Notes 03-30-2006 to 10-14-2022 Patient InstructionsNicole Willett PA-C - 10/14/2022 10:09 AM Barron Piedra MD - 10/01/2022 12:00 PM Barron Piedra MD - 10/01/2022 12:00 PM EDTPatient Instructions Note Date & Type Note Facility 10-14-2022 Note HNO ID: [id number] Author: Nicole Willett PA-C Service: ? Author Type: Physician Building Superintendent Type: Progress Notes Filed: 10/14/2022 12:22 PM Note Text: FOLLOW UP VISIT - ENDOSCOPY NAME: Tomas Bertrand [facility] NO.: [id number] DATE OF SERVICE: 10/14/2022 : 1960 REFERRING PHYSICIAN: Hipolito Melo DO Tomas is a patient I am following with Dr. Piedra for abdominal bloating, irregular bowel activity following antibiotic use and history of colon polyps. Dr. Piedra performed upper and lower endoscopy on 10/01/22. The patient was found to have gastritis and esophagitis on EGD, omeprazole 40 mg daily was recommended. Colonoscopy was normal. Random biopsies taken. Pathology demonstrated: FINAL DIAGNOSIS A. Jejunum, biopsy: -Small intestinal mucosa with predominantly intact villous architecture -Negative for intraepithelial for cytosis B. Stomach, antrum, biopsy: -Portions of antral type gastric mucosa with chronic inactive gastritis -Negative for Helicobacter pylori organisms on routine staining -Negative for intestinal metaplasia or dysplasia C. Esophagus, lower, biopsy: -Squamocolumnar, and cardia fundic mucosa with chronic inflammation, negative for intestinal metaplasia -Negative for eosinophilic esophagitis D. Esophagus, mid, biopsy: -Portions of squamous epithelium with no significant histologic abnormality -Negative for eosinophilic esophagitis E. Terminal ileum, biopsy: -Portions of small intestinal mucosa with intact villous architecture and no significant histologic abnormality F. Colon, ascending, biopsy: -Colonic mucosa with no significant histologic abnormality -Negative for chronic, active or microscopic colitis G. Colon, descending, biopsy: -Colonic mucosa with no significant histologic abnormality -Negative for chronic, active or microscopic colitis The patient notes no complaints since the procedure. States symptoms have actually improved since taking the bowel prep. He does note he has correlated his abdominal complaints with flavored water and aspartame and will now be avoiding these. VITALS: Blood pressure 128/72, pulse 67, temperature 36.6 ?C (97.9 ?F), SpO2 98 %. General: patient is alert, cooperative, pleasant and in no acute distress On examination, the abdomen is benign. Assessment IMPRESSION: normal colonoscopy, history of colon polyps. GERD and gastritis PLAN: The operative findings and pathology report were reviewed with the patient, and the patient has had the opportunity to ask questions and have questions answered. If the patient notes any problems or changes in bowel function, the patient should contact me immediately. Otherwise I recommend follow up colonoscopy in 5 years due to prior history of colon polyps. HM updated and recall letter generated. Patient verbalized understanding of all above and agreed with the plan Diagnoses: (Z86.010) History of colonic polyps (primary encounter diagnosis) (R14.0) Abdominal bloating (K29.30) Chronic superficial gastritis without bleeding (K21.00) Gastroesophageal reflux disease with esophagitis without hemorrhage I spent a total of 23 minutes on the date of the service which included preparing to see the patient, [id number] patient care, completing clinical documentation, obtaining and/or reviewing separately obtained history, counseling and educating the patient/family/caregiver, independently interpreting results (not separately reported), and communicating results to the patient/family/caregiver. Nicole Willett PA-C [facility] 10-14-2022 Instructions Nicole Willett PA-C - 10/14/2022 10:29 AM EDT -Continue omeprazole for 2-3 months, then may discontinue the medication -Notify office if symptoms worsen or persist despite above measures The following instructions are important for you related to your office visit today with the [facility] General Surgeons. INSTRUCTIONS FOLLOWING A NORMAL COLONOSCOPY I discussed with you the findings of your colonoscopy. Since there were no worrisome abnormalities, I recommend you undergo repeat endoscopic screening in 5 years due to previous history of polyps. If you note bleeding, change in bowel habits, or other suspicious colon related symptoms before that time, those symptoms should be evaluated as necessary. INSTRUCTIONS FOR PEPTIC ULCER DISEASE - ESOPHAGITIS I discussed with you the findings of your upper endoscopy. Your upper endoscopy demonstrated esophagitis Esophagitis may be a form of peptic irritation, with acid moving from the stomach to the esophagus (gastroesophageal reflux) Factors that increase acid production include smoking and stress. If you smoke, stopping smoking will often cure these issues without needing other medications. Over the counter medications including antiacids and acid reducing medications including H2 blockers (Zantac and the like) and proton pump inhibitors (prilosec, prevacid and the like) neutralize or prevent acid production. Prescription strength proton pump inhibitors (PPIs) may be necessary if your symptoms persist. Carafate may be added to PPI treatment in refractory cases. Avoiding smoking, alcohol and antiinflammatory medications are important in the successful treatment of reflux esophagitis and peptic diseases. Other factors that contribute to GERD and esophagitis are being overweight, eating large meals before laying down and certain foods. Weight loss will help improve many GERD complaints. Remaining upright after eating large meals and having a small supper will also help symptoms. Avoiding food that contribute to reflux - chocolate, caffeine, cheddar cheese may also help. Follow up upper endoscopy may be recommended to assure healing of the esophagus. New or worsening symptoms such are epigastric pain, burning, difficulty swallowing or food sticking should be relayed to your physician. Feeling full early after eating, or black, tarry, foul smelling stools are also worrisome. If you have any difficulties or concerns, you should contact our office immediately. If you note any additional difficulties, questions, or concerns, you should contact our office immediately @ [phone] and ask to be transferred to the General Surgery department. documented in this encounter [facility] 10-14-2022 History of Presen t illness Narrative FOLLOW UP VISIT - ENDOSCOPY NAME: Tomas Bertrand [facility] NO.: [id number] DATE OF SERVICE: 10/14/2022 : 1960 REFERRING PHYSICIAN: Hipolito Melo DO Tomas is a patient I am following with Dr. Piedra for abdominal bloating, irregular bowel activity following antibiotic use and history of colon polyps. Dr. Piedra performed upper and lower endoscopy on 10/01/22. The patient was found to have gastritis and esophagitis on EGD, omeprazole 40 mg daily was recommended. Colonoscopy was normal. Random biopsies taken. Pathology demonstrated: FINAL DIAGNOSIS A. Jejunum, biopsy: -Small intestinal mucosa with predominantly intact villous architecture -Negative for intraepithelial for cytosis B. Stomach, antrum, biopsy: -Portions of antral type gastric mucosa with chronic inactive gastritis -Negative for Helicobacter pylori organisms on routine staining -Negative for intestinal metaplasia or dysplasia C. Esophagus, lower, biopsy: -Squamocolumnar, and cardia fundic mucosa with chronic inflammation, negative for intestinal metaplasia -Negative for eosinophilic esophagitis D. Esophagus, mid, biopsy: -Portions of squamous epithelium with no significant histologic abnormality -Negative for eosinophilic esophagitis E. Terminal ileum, biopsy: -Portions of small intestinal mucosa with intact villous architecture and no significant histologic abnormality F. Colon, ascending, biopsy: -Colonic mucosa with no significant histologic abnormality -Negative for chronic, active or microscopic colitis G. Colon, descending, biopsy: -Colonic mucosa with no significant histologic abnormality -Negative for chronic, active or microscopic colitis The patient notes no complaints since the procedure. States symptoms have actually improved since taking the bowel prep. He does note he has correlated his abdominal complaints with flavored water and aspartame and will now be avoiding these. VITALS: Blood pressure 128/72, pulse 67, temperature 36.6 C (97.9 F), SpO2 98 %. General: patient is alert, cooperative, pleasant and in no acute distress On examination, the abdomen is benign. Assessment IMPRESSION: normal colonoscopy, history of colon polyps. GERD and gastritis PLAN: The operative findings and pathology report were reviewed with the patient, and the patient has had the opportunity to ask questions and have questions answered. If the patient notes any problems or changes in bowel function, the patient should contact me immediately. Otherwise I recommend follow up colonoscopy in 5 years due to prior history of colon polyps. HM updated and recall letter generated. Patient verbalized understanding of all above and agreed with the plan Diagnoses: (Z86.010) History of colonic polyps (primary encounter diagnosis) (R14.0) Abdominal bloating (K29.30) Chronic superficial gastritis without bleeding (K21.00) Gastroesophageal reflux disease with esophagitis without hemorrhage I spent a total of 23 minutes on the date of the service which included preparing to see the patient, [id number] patient care, completing clinical documentation, obtaining and/or reviewing separately obtained history, counseling and educating the patient/family/caregiver, independently interpreting results (not separately reported), and communicating results to the patient/family/caregiver. Nicole Willett PA-C documented in this encounter [facility] 10-01-2022 History and physical note UPDATED PROCEDURAL SEDATION HISTORY AND PHYSICAL EXAMINATION SERVICE DATE: 10/01/2022 SERVICE TIME: 10:59 AM PHYSICAL EXAM MUST BE COMPLETED ON ADMISSION PROCEDURE: Procedure Indications: The History and Physical (completed in the past 30 days) has been reviewed and the patient has been examined. The contents accurately reflect the patient's condition with the following additions or revisions since the H&P was completed. ASA Class: ASA Class:: Patient with severe systemic disease Examination indicates no changes. AIRWAY: Airway Visualization of Uvula: Yes Mouth opening greater than 2 fingerbreadths: Yes Neck Full Range of Motion: Yes LUNGS: Lungs clear to auscultation CARDIAC: Regular rhythm,Regular rate Provisional Diagnosis/Treatment Plan: bloating, abdominal complaints, irregular bowel activity, history of polyps - EGD and COlonoscopy SEDATION GOAL: Moderate This H&P can be found in the attached. SIGNATURE: West Piedra MD PATIENT NAME: Tomas Bertrand DATE: October 01, 2022 TIME: 10:59 AM Source Note - West Piedra MD - 10/01/2022 12:00 PM EDT Images from the original note were not included. HISTORY AND PHYSICAL Tomas Bertrand 1960 REFERRING PHYSICIAN: No ref. provider found CHIEF COMPLAINT: Consult (Bowel issues) HPI: The patient is a 62 year old male referred for endoscopy. Tomas was admitted and treated for pneumonia and received multiple antibiotics. Since that time the patient is noted abdominal issues which include bloating diffuse abdominal pain and irregular bowel activities. He tried probiotic tablets which actually seemed to worsen his bloating and discomfort. Since his pneumonia episode he has noted some shortness of breath body aches and fatigue. He denies nausea vomiting hematochezia melena weight loss or other complaints. Tomas undergone prior endoscopy. I performed colonoscopy 3 years previously which demonstrated 1 adenomatous polyp and 2 hyperplastic polyps. I recommended 5-year follow-up colonoscopy at that time. The patient does not recall that he had undergone stool studies. Since his stool is now formed there is no indication for stool studies at this time The patient is being seen by me today at the request of Dr. Hipolito Melo DO for my opinion and advice regarding changing abdominal symptomatology following antibiotic treatment for pneumonia. PAST MEDICAL HISTORY PAST MEDICAL HISTORY Diagnosis Date Acute gastritis without mention of hemorrhage Benign neoplasm of colon Coronary artery disease Diverticulitis of colon with hemorrhage Hyperlipidemia YAN (obstructive sleep apnea) non compliant with CPAP Personal history of colonic polyps Pneumonia, viral Snoring Tobacco use disorder 01/23/2006 PAST SURGICAL HISTORY PAST SURGICAL HISTORY Procedure Laterality Date ARTHROSCOPY KNEE DIAGNOSTIC W/WO SYNOVIAL BX SPX 1997 Arthroscopy, knee COLONOSCOPY FLX DX W/COLLJ SPEC WHEN PFRMD 04/23/2009 normal colon COLONOSCOPY FLX DX W/COLLJ SPEC WHEN PFRMD 11/19/2018 Colonoscopy: adenomatous polyp, repeat colon in 5 years. [facility] FLX W/RMVL OF TUMOR POLYP LESION SNARE TQ 04/27/2006 rectal polyp COLSC FLX W/RMVL OF TUMOR POLYP LESION SNARE TQ 12/19/2014 small hyperplastic polyp - 5 year follow up h/o polyps EGD TRANSORAL BIOPSY SINGLE/MULTIPLE 04/27/2006 VASECTOMY UNI/BI SPX W/POSTOP SEMEN EXAMS CURRENT MEDICATIONS Current Outpatient Medications Medication Sig albuterol HFA (PROVENTIL HFA, VENTOLIN HFA) 90 mcg/actuation inhaler Inhale 2 Puffs as instructed as needed. peg 3350-Electrolytes (GOLYTELY) 236-22.74-6.74 -5.86 gram suspension Take 4,000 mL by mouth one time only for 1 dose. Refer to printed prep instructions from your provider. Tadalafil (CIALIS) 5 mg tablet Take 1 tablet by mouth 1 hour prior to sexual activity. Do not repeat within 24 hours. Effects may last up to 36 hours. (Patient not taking: Reported on 09/11/2022) atorvastatin (LIPITOR) 40 mg tablet Take 0.5 tablets by mouth daily at bedtime. For cholesterol. (Patient not taking: Reported on 12/27/2020 ) No current facility-administered medications for this visit. ALLERGIES: Eryc [Erythromycin] PERSONAL HISTORY: SOCIAL HISTORY Social History Tobacco Use Smoking status: Every Day Packs/day: 1.00 Years: 40.00 Pack years: 40.00 Types: Cigarettes Start date: 11/16/1984 Smokeless tobacco: Never Vaping Use Vaping Use: Never used Substance Use Topics Alcohol use: Yes Alcohol/week: 1.0 standard drink Types: 1 Cans of Beer (12oz) per week Comment: rare Drug use: No Comment: in the past, no IV drug use FAMILY HISTORY: FAMILY HISTORY FAMILY HISTORY Problem Relation Age of Onset Arthritis Mother fibromyalgia, RA Heart Mother Enlarged heart Cancer Father lymphoma, at 66 yoa Hypertension Father No Known Problems Sister other (Hypertension, tumor spinal cord) Brother Sleep apnea Breast Cancer Maternal Grandmother Heart Maternal Grandmother CHF Cancer Maternal Grandfather Cancer Paternal Grandmother Cancer Paternal Grandfather Hypertension Paternal Grandfather No Known Problems Son REVIEW OF SYMPTOMS: The review of systems data was entered by the nurse and reviewed by tx Nursing Notes: Ghislaine Collier LPN 09/11/2022 7:37 AM Signed REVIEW OF SYSTEMS: General: The patient denies fatigue, denies weight loss, denies weight gain, denies feeling hot, and denies feelings of cold. Eyes: The patient denies glaucoma, denies eye injury/surgery, does not wear glasses or contacts. Ear/Nose/Throat: The patient notes allergies, notes hayfever, denies ear infections, and denies bloody noses. Cardiovascular: The patient denies chest pain, denies heart disease, denies high blood pressure,denies cardiac stent, denies prior heart attack, denies irregular heart beat, denies high cholesterol, denies poor circulation, denies heart failure, other cardiac issues, denies claudication, denies cold feet, denies peripheral arterial stent. Respiratory: The patient denies tuberculosis, notes pneumonia, denies frequent cough, denies pulmonary embolism, denies shortness of breath, and denies coughing up blood, notes other lung problems. Gastrointestinal: The patient denies difficulty swallowing, notes acid reflux, notes ulcers, denies vomiting, denies jaundice/hepatitis, denies gallbladder problems, denies black or tarry stools, notes hemorrhoids, denies bleeding from rectum, notes diverticulitis, denies constipation, denies diarrhea, denies loss of stool control, and denies hernias. Kidney/Bladder: The patient denies kidney stones, denies urine infections, and denies bloody urine. Skin: The patient denies a history of skin cancer, denies bleeding/changing moles, and denies a history of skin rash. Neurologic: The patient denies a history of epilepsy/convulsions, denies headaches, denies head/spinal injuries, and denies stroke/TIA. Psychiatric: The patient denies psychiatric medications, denies depression, and denies voices, denies substance abuse. Endocrine: The patient denies thyroid disorders, denies diabetes, and denies hormonal problems. Hematologic: The patient denies a history of bruising, denies bleeding, and denies anemia, denies blood clots. Infections: The patient notes a history of measles and mumps, denies rheumatic fever, and denies sexually transmitted diseases. Musculoskeletal: The patient denies back pain/injury, denies back problems, notes sciatica, denies knee/foot trouble, denies arthritis, or denies gout. When was patient's last Mammogram screening? N/A Last Colonoscopy: 11/2018 Ghislaine Collier LPN PHYSICAL EXAMINATION: General: The patient is 62 year old male, well nourished, well hydrated in no acute distress. The patient is oriented to time, place, and person. VITALS: Blood pressure 112/62, pulse 76, temperature 36.4 C (97.5 F), height 185.4 cm (6' 1 ), weight 102.5 kg (226 lb), SpO2 97 %. Body mass index is 29.82 kg/m . HEENT: Normal cephalic, ataumatic, pupils are equally round, sclera are anicteric, mucous membranes are moist, oropharynx is clear. Neck has no masses, asymmetry or lymphadenopathy. Thyroid is unremarkable. Respiratory: Clear to auscultation and percussion. Normal respiratory excursion and pattern. Cardiac: Examination is regular rate and rhythm. Abdominal exam: Soft, nontender, with no palpable masses. No hepatosplenomegaly. No palpable hernias. Rectal exam: exam deferred Extremities: no clubbing, cyanosis or edema. No adenopathy. Other: LABORATORY VALUES: As Noted RADIOLOGIC STUDIES: As Noted Assessment IMPRESSION: Bloating abdominal distention irregular bowel activity PLAN: I plan to perform upper and lower endoscopy. We discussed the risks and benefits of the planned endoscopy. I have informed the patient that complications can occur including failure to complete the endoscopy and perforation. The patient had the opportunity to ask questions concerning the planned endoscopy. My staff has also explained the procedure to the patient in understandable terms and has given the patient printed material concerning the procedure. The patient freely consents to surgery. I plan to use golytely bowel preparation for endoscopy I plan for monitored anesthetic care. Diagnoses: (R14.0) Bloating (primary encounter diagnosis) (R19.4) Change in bowel habits A letter was sent to Dr. Hipolito Melo DO indicating the above finding for this patient. Return to Clinic: The patient is instructed to follow-up with me after the testing has been completed. West Piedra MD Images from the original note were not included. HISTORY AND PHYSICAL Tomas Bertrand 1960 REFERRING PHYSICIAN: No ref. provider found CHIEF COMPLAINT: Consult (Bowel issues) HPI: The patient is a 62 year old male referred for endoscopy. Tomas was admitted and treated for pneumonia and received multiple antibiotics. Since that time the patient is noted abdominal issues which include bloating diffuse abdominal pain and irregular bowel activities. He tried probiotic tablets which actually seemed to worsen his bloating and discomfort. Since his pneumonia episode he has noted some shortness of breath body aches and fatigue. He denies nausea vomiting hematochezia melena weight loss or other complaints. Tomas undergone prior endoscopy. I performed colonoscopy 3 years previously which demonstrated 1 adenomatous polyp and 2 hyperplastic polyps. I recommended 5-year follow-up colonoscopy at that time. The patient does not recall that he had undergone stool studies. Since his stool is now formed there is no indication for stool studies at this time The patient is being seen by me today at the request of Dr. Hipolito Melo DO for my opinion and advice regarding changing abdominal symptomatology following antibiotic treatment for pneumonia. PAST MEDICAL HISTORY PAST MEDICAL HISTORY Diagnosis Date Acute gastritis without mention of hemorrhage Benign neoplasm of colon Coronary artery disease Diverticulitis of colon with hemorrhage Hyperlipidemia YAN (obstructive sleep apnea) non compliant with CPAP Personal history of colonic polyps Pneumonia, viral Snoring Tobacco use disorder 01/23/2006 PAST SURGICAL HISTORY PAST SURGICAL HISTORY Procedure Laterality Date ARTHROSCOPY KNEE DIAGNOSTIC W/WO SYNOVIAL BX SPX 1997 Arthroscopy, knee COLONOSCOPY FLX DX W/COLLJ SPEC WHEN PFRMD 04/23/2009 normal colon COLONOSCOPY FLX DX W/COLLJ SPEC WHEN PFRMD 11/19/2018 Colonoscopy: adenomatous polyp, repeat colon in 5 years. COLSC FLX W/RMVL OF TUMOR POLYP LESION SNARE TQ 04/27/2006 rectal polyp COLSC FLX W/RMVL OF TUMOR POLYP LESION SNARE TQ 12/19/2014 small hyperplastic polyp - 5 year follow up h/o polyps EGD TRANSORAL BIOPSY SINGLE/MULTIPLE 04/27/2006 VASECTOMY UNI/BI SPX W/POSTOP SEMEN EXAMS CURRENT MEDICATIONS Current Outpatient Medications Medication Sig albuterol HFA (PROVENTIL HFA, VENTOLIN HFA) 90 mcg/actuation inhaler Inhale 2 Puffs as instructed as needed. peg 3350-Electrolytes (GOLYTELY) 236-22.74-6.74 -5.86 gram suspension Take 4,000 mL by mouth one time only for 1 dose. Refer to printed prep instructions from your provider. Tadalafil (CIALIS) 5 mg tablet Take 1 tablet by mouth 1 hour prior to sexual activity. Do not repeat within 24 hours. Effects may last up to 36 hours. (Patient not taking: Reported on 09/11/2022) atorvastatin (LIPITOR) 40 mg tablet Take 0.5 tablets by mouth daily at bedtime. For cholesterol. (Patient not taking: Reported on 12/27/2020 ) No current facility-administered medications for this visit. ALLERGIES: Eryc [Erythromycin] PERSONAL HISTORY: SOCIAL HISTORY Social History Tobacco Use Smoking status: Every Day Packs/day: 1.00 Years: 40.00 Pack years: 40.00 Types: Cigarettes Start date: 11/16/1984 Smokeless tobacco: Never Vaping Use Vaping Use: Never used Substance Use Topics Alcohol use: Yes Alcohol/week: 1.0 standard drink Types: 1 Cans of Beer (12oz) per week Comment: rare Drug use: No Comment: in the past, no IV drug use FAMILY HISTORY: FAMILY HISTORY FAMILY HISTORY Problem Relation Age of Onset Arthritis Mother fibromyalgia, RA Heart Mother Enlarged heart Cancer Father lymphoma, at 66 yoa Hypertension Father No Known Problems Sister other (Hypertension, tumor spinal cord) Brother Sleep apnea Breast Cancer Maternal Grandmother Heart Maternal Grandmother CHF Cancer Maternal Grandfather Cancer Paternal Grandmother Cancer Paternal Grandfather Hypertension Paternal Grandfather No Known Problems Son REVIEW OF SYMPTOMS: The review of systems data was entered by the nurse and reviewed by tx Nursing Notes: Ghislaine Collier LPN 09/11/2022 7:37 AM Signed REVIEW OF SYSTEMS: General: The patient denies fatigue, denies weight loss, denies weight gain, denies feeling hot, and denies feelings of cold. Eyes: The patient denies glaucoma, denies eye injury/surgery, does not wear glasses or contacts. Ear/Nose/Throat: The patient notes allergies, notes hayfever, denies ear infections, and denies bloody noses. Cardiovascular: The patient denies chest pain, denies heart disease, denies high blood pressure,denies cardiac stent, denies prior heart attack, denies irregular heart beat, denies high cholesterol, denies poor circulation, denies heart failure, other cardiac issues, denies claudication, denies cold feet, denies peripheral arterial stent. Respiratory: The patient denies tuberculosis, notes pneumonia, denies frequent cough, denies pulmonary embolism, denies shortness of breath, and denies coughing up blood, notes other lung problems. Gastrointestinal: The patient denies difficulty swallowing, notes acid reflux, notes ulcers, denies vomiting, denies jaundice/hepatitis, denies gallbladder problems, denies black or tarry stools, notes hemorrhoids, denies bleeding from rectum, notes diverticulitis, denies constipation, denies diarrhea, denies loss of stool control, and denies hernias. Kidney/Bladder: The patient denies kidney stones, denies urine infections, and denies bloody urine. Skin: The patient denies a history of skin cancer, denies bleeding/changing moles, and denies a history of skin rash. Neurologic: The patient denies a history of epilepsy/convulsions, denies headaches, denies head/spinal injuries, and denies stroke/TIA. Psychiatric: The patient denies psychiatric medications, denies depression, and denies voices, denies substance abuse. Endocrine: The patient denies thyroid disorders, denies diabetes, and denies hormonal problems. Hematologic: The patient denies a history of bruising, denies bleeding, and denies anemia, denies blood clots. Infections: The patient notes a history of measles and mumps, denies rheumatic fever, and denies sexually transmitted diseases. Musculoskeletal: The patient denies back pain/injury, denies back problems, notes sciatica, denies knee/foot trouble, denies arthritis, or denies gout. When was patient's last Mammogram screening? N/A Last Colonoscopy: 11/2018 Ghislaine Collier LPN PHYSICAL EXAMINATION: General: The patient is 62 year old male, well nourished, well hydrated in no acute distress. The patient is oriented to time, place, and person. VITALS: Blood pressure 112/62, pulse 76, temperature 36.4 C (97.5 F), height 185.4 cm (6' 1 ), weight 102.5 kg (226 lb), SpO2 97 %. Body mass index is 29.82 kg/m . HEENT: Normal cephalic, ataumatic, pupils are equally round, sclera are anicteric, mucous membranes are moist, oropharynx is clear. Neck has no masses, asymmetry or lymphadenopathy. Thyroid is unremarkable. Respiratory: Clear to auscultation and percussion. Normal respiratory excursion and pattern. Cardiac: Examination is regular rate and rhythm. Abdominal exam: Soft, nontender, with no palpable masses. No hepatosplenomegaly. No palpable hernias. Rectal exam: exam deferred Extremities: no clubbing, cyanosis or edema. No adenopathy. Other: LABORATORY VALUES: As Noted RADIOLOGIC STUDIES: As Noted Assessment IMPRESSION: Bloating abdominal distention irregular bowel activity PLAN: I plan to perform upper and lower endoscopy. We discussed the risks and benefits of the planned endoscopy. I have informed the patient that complications can occur including failure to complete the endoscopy and perforation. The patient had the opportunity to ask questions concerning the planned endoscopy. My staff has also explained the procedure to the patient in understandable terms and has given the patient printed material concerning the procedure. The patient freely consents to surgery. I plan to use golytely bowel preparation for endoscopy I plan for monitored anesthetic care. Diagnoses: (R14.0) Bloating (primary encounter diagnosis) (R19.4) Change in bowel habits A letter was sent to Dr. Hipolito Melo DO indicating the above finding for this patient. Return to Clinic: The patient is instructed to follow-up with me after the testing has been completed. West Piedra MD documented in this encounter [facility] 09-11-2022 Note HNO ID: [id number] Author: West Piedra MD Service: ? Author Type: Physician Type: Progress Notes Filed: 09/11/2022 10:07 AM Note Text: HISTORY AND PHYSICAL Tomas Bertrand 1960 REFERRING PHYSICIAN: No ref. provider found CHIEF COMPLAINT: Consult (Bowel issues) HPI: The patient is a 62 year old male referred for endoscopy. Tomas was admitted and treated for pneumonia and received multiple antibiotics. Since that time the patient is noted abdominal issues which include bloating diffuse abdominal pain and irregular bowel activities. He tried probiotic tablets which actually seemed to worsen his bloating and discomfort. Since his pneumonia episode he has noted some shortness of breath body aches and fatigue. He denies nausea vomiting hematochezia melena weight loss or other complaints. Tomas undergone prior endoscopy. I performed colonoscopy 3 years previously which demonstrated 1 adenomatous polyp and 2 hyperplastic polyps. I recommended 5-year follow-up colonoscopy at that time. The patient does not recall that he had undergone stool studies. Since his stool is now formed there is no indication for stool studies at this time The patient is being seen by me today at the request of Dr. Hipolito Melo DO for my opinion and advice regarding changing abdominal symptomatology following antibiotic treatment for pneumonia. PAST MEDICAL HISTORY Diagnosis Date Acute gastritis without mention of hemorrhage Benign neoplasm of colon Coronary artery disease Diverticulitis of colon with hemorrhage Hyperlipidemia YAN (obstructive sleep apnea) non compliant with CPAP Personal history of colonic polyps Pneumonia, viral Snoring Tobacco use disorder 01/23/2006 PAST SURGICAL HISTORY Procedure Laterality Date ARTHROSCOPY KNEE DIAGNOSTIC W/WO SYNOVIAL BX SPX 1997 Arthroscopy, knee COLONOSCOPY FLX DX W/COLLJ SPEC WHEN PFRMD 04/23/2009 normal colon COLONOSCOPY FLX DX W/COLLJ SPEC WHEN PFRMD 11/19/2018 Colonoscopy: adenomatous polyp, repeat colon in 5 years. COLSC FLX W/RMVL OF TUMOR POLYP LESION SNARE TQ 04/27/2006 rectal polyp COLSC FLX W/RMVL OF TUMOR POLYP LESION SNARE TQ 12/19/2014 small hyperplastic polyp - 5 year follow up h/o polyps EGD TRANSORAL BIOPSY SINGLE/MULTIPLE 04/27/2006 VASECTOMY UNI/BI SPX W/POSTOP SEMEN EXAMS Current Outpatient Medications Medication Sig albuterol HFA (PROVENTIL HFA, VENTOLIN HFA) 90 mcg/actuation inhaler Inhale 2 Puffs as instructed as needed. peg 3350-Electrolytes (GOLYTELY) 236-22.74-6.74 -5.86 gram suspension Take 4,000 mL by mouth one time only for 1 dose. Refer to printed prep instructions from your provider. Tadalafil (CIALIS) 5 mg tablet Take 1 tablet by mouth 1 hour prior to sexual activity. Do not repeat within 24 hours. Effects may last up to 36 hours. (Patient not taking: Reported on 09/11/2022) atorvastatin (LIPITOR) 40 mg tablet Take 0.5 tablets by mouth daily at bedtime. For cholesterol. (Patient not taking: Reported on 12/27/2020 ) No current facility-administered medications for this visit. ALLERGIES: Eryc [Erythromycin] PERSONAL HISTORY: Social History Tobacco Use Smoking status: Every Day Packs/day: 1.00 Years: 40.00 Pack years: 40.00 Types: Cigarettes Start date: 11/16/1984 Smokeless tobacco: Never Vaping Use Vaping Use: Never used Substance Use Topics Alcohol use: Yes Alcohol/week: 1.0 standard drink Types: 1 Cans of Beer (12oz) per week Comment: rare Drug use: No Comment: in the past, no IV drug use FAMILY HISTORY: FAMILY HISTORY Problem Relation Age of Onset Arthritis Mother fibromyalgia, RA Heart Mother Enlarged heart Cancer Father lymphoma, at 66 yoa Hypertension Father No Known Problems Sister other (Hypertension, tumor spinal cord) Brother Sleep apnea Breast Cancer Maternal Grandmother Heart Maternal Grandmother CHF Cancer Maternal Grandfather Cancer Paternal Grandmother Cancer Paternal Grandfather Hypertension Paternal Grandfather No Known Problems Son REVIEW OF SYMPTOMS: The review of systems data was entered by the nurse and reviewed by me Nursing Notes: Ghislaine Collier LPN 09/11/2022 7:37 AM Signed REVIEW OF SYSTEMS: General: The patient denies fatigue, denies weight loss, denies weight gain, denies feeling hot, and denies feelings of cold. Eyes: The patient denies glaucoma, denies eye injury/surgery, does not wear glasses or contacts. Ear/Nose/Throat: The patient notes allergies, notes hayfever, denies ear infections, and denies bloody noses. Cardiovascular: The patient denies chest pain, denies heart disease, denies high blood pressure,denies cardiac stent, denies prior heart attack, denies irregular heart beat, denies high cholesterol, denies poor circulation, denies heart failure, other cardiac issues, denies claudication, denies cold feet, denies peripheral arterial stent. Respiratory: The patient denies tu (more content not included)... [facility] 09-11-2022 History of Presen t illness Narrative HISTORY AND PHYSICAL Tomas Bertrand 1960 REFERRING PHYSICIAN: No ref. provider found CHIEF COMPLAINT: Consult (Bowel issues) HPI: The patient is a 62 year old male referred for endoscopy. Tomas was admitted and treated for pneumonia and received multiple antibiotics. Since that time the patient is noted abdominal issues which include bloating diffuse abdominal pain and irregular bowel activities. He tried probiotic tablets which actually seemed to worsen his bloating and discomfort. Since his pneumonia episode he has noted some shortness of breath body aches and fatigue. He denies nausea vomiting hematochezia melena weight loss or other complaints. Tomas undergone prior endoscopy. I performed colonoscopy 3 years previously which demonstrated 1 adenomatous polyp and 2 hyperplastic polyps. I recommended 5-year follow-up colonoscopy at that time. The patient does not recall that he had undergone stool studies. Since his stool is now formed there is no indication for stool studies at this time The patient is being seen by me today at the request of Dr. Hipolito Melo DO for my opinion and advice regarding changing abdominal symptomatology following antibiotic treatment for pneumonia. PAST MEDICAL HISTORY Diagnosis Date Acute gastritis without mention of hemorrhage Benign neoplasm of colon Coronary artery disease Diverticulitis of colon with hemorrhage Hyperlipidemia YAN (obstructive sleep apnea) non compliant with CPAP Personal history of colonic polyps Pneumonia, viral Snoring Tobacco use disorder 01/23/2006 PAST SURGICAL HISTORY Procedure Laterality Date ARTHROSCOPY KNEE DIAGNOSTIC W/WO SYNOVIAL BX SPX 1997 Arthroscopy, knee COLONOSCOPY FLX DX W/COLLJ SPEC WHEN PFRMD 04/23/2009 normal colon COLONOSCOPY FLX DX W/COLLJ SPEC WHEN PFRMD 11/19/2018 Colonoscopy: adenomatous polyp, repeat colon in 5 years. COLSC FLX W/RMVL OF TUMOR POLYP LESION SNARE TQ 04/27/2006 rectal polyp COLSC FLX W/RMVL OF TUMOR POLYP LESION SNARE TQ 12/19/2014 small hyperplastic polyp - 5 year follow up h/o polyps EGD TRANSORAL BIOPSY SINGLE/MULTIPLE 04/27/2006 VASECTOMY UNI/BI SPX W/POSTOP SEMEN EXAMS Current Outpatient Medications Medication Sig albuterol HFA (PROVENTIL HFA, VENTOLIN HFA) 90 mcg/actuation inhaler Inhale 2 Puffs as instructed as needed. peg 3350-Electrolytes (GOLYTELY) 236-22.74-6.74 -5.86 gram suspension Take 4,000 mL by mouth one time only for 1 dose. Refer to printed prep instructions from your provider. Tadalafil (CIALIS) 5 mg tablet Take 1 tablet by mouth 1 hour prior to sexual activity. Do not repeat within 24 hours. Effects may last up to 36 hours. (Patient not taking: Reported on 09/11/2022) atorvastatin (LIPITOR) 40 mg tablet Take 0.5 tablets by mouth daily at bedtime. For cholesterol. (Patient not taking: Reported on 12/27/2020 ) No current facility-administered medications for this visit. ALLERGIES: Eryc [Erythromycin] PERSONAL HISTORY: Social History Tobacco Use Smoking status: Every Day Packs/day: 1.00 Years: 40.00 Pack years: 40.00 Types: Cigarettes Start date: 11/16/1984 Smokeless tobacco: Never Vaping Use Vaping Use: Never used Substance Use Topics Alcohol use: Yes Alcohol/week: 1.0 standard drink Types: 1 Cans of Beer (12oz) per week Comment: rare Drug use: No Comment: in the past, no IV drug use FAMILY HISTORY: FAMILY HISTORY Problem Relation Age of Onset Arthritis Mother fibromyalgia, RA Heart Mother Enlarged heart Cancer Father lymphoma, at 66 yoa Hypertension Father No Known Problems Sister other (Hypertension, tumor spinal cord) Brother Sleep apnea Breast Cancer Maternal Grandmother Heart Maternal Grandmother CHF Cancer Maternal Grandfather Cancer Paternal Grandmother Cancer Paternal Grandfather Hypertension Paternal Grandfather No Known Problems Son REVIEW OF SYMPTOMS: The review of systems data was entered by the nurse and reviewed by tx Nursing Notes: Ghislaine Collier LPN 09/11/2022 7:37 AM Signed REVIEW OF SYSTEMS: General: The patient denies fatigue, denies weight loss, denies weight gain, denies feeling hot, and denies feelings of cold. Eyes: The patient denies glaucoma, denies eye injury/surgery, does not wear glasses or contacts. Ear/Nose/Throat: The patient notes allergies, notes hayfever, denies ear infections, and denies bloody noses. Cardiovascular: The patient denies chest pain, denies heart disease, denies high blood pressure,denies cardiac stent, denies prior heart attack, denies irregular heart beat, denies high cholesterol, denies poor circulation, denies heart failure, other cardiac issues, denies claudication, denies cold feet, denies peripheral arterial stent. Respiratory: The patient denies tuberculosis, notes pneumonia, denies frequent cough, denies pulmonary embolism, denies shortness of breath, and denies coughing up blood, notes other lung problems. Gastrointestinal: The patient denies difficulty swallowing, notes acid reflux, notes ulcers, denies vomiting, denies jaundice/hepatitis, denies gallbladder problems, denies black or tarry stools, notes hemorrhoids, denies bleeding from rectum, notes diverticulitis, denies constipation, denies diarrhea, denies loss of stool control, and denies hernias. Kidney/Bladder: The patient denies kidney stones, denies urine infections, and denies bloody urine. Skin: The patient denies a history of skin cancer, denies bleeding/changing moles, and denies a history of skin rash. Neurologic: The patient denies a history of epilepsy/convulsions, denies headaches, denies head/spinal injuries, and denies stroke/TIA. Psychiatric: The patient denies psychiatric medications, denies depression, and denies voices, denies substance abuse. Endocrine: The patient denies thyroid disorders, denies diabetes, and denies hormonal problems. Hematologic: The patient denies a history of bruising, denies bleeding, and denies anemia, denies blood clots. Infections: The patient notes a history of measles and mumps, denies rheumatic fever, and denies sexually transmitted diseases. Musculoskeletal: The patient denies back pain/injury, denies back problems, notes sciatica, denies knee/foot trouble, denies arthritis, or denies gout. When was patient's last Mammogram screening? N/A Last Colonoscopy: 11/2018 Ghislaine Collier LPN PHYSICAL EXAMINATION: General: The patient is 62 year old male, well nourished, well hydrated in no acute distress. The patient is oriented to time, place, and person. VITALS: Blood pressure 112/62, pulse 76, temperature 36.4 C (97.5 F), height 185.4 cm (6' 1 ), weight 102.5 kg (226 lb), SpO2 97 %. Body mass index is 29.82 kg/m . HEENT: Normal cephalic, ataumatic, pupils are equally round, sclera are anicteric, mucous membranes are moist, oropharynx is clear. Neck has no masses, asymmetry or lymphadenopathy. Thyroid is unremarkable. Respiratory: Clear to auscultation and percussion. Normal respiratory excursion and pattern. Cardiac: Examination is regular rate and rhythm. Abdominal exam: Soft, nontender, with no palpable masses. No hepatosplenomegaly. No palpable hernias. Rectal exam: exam deferred Extremities: no clubbing, cyanosis or edema. No adenopathy. Other: LABORATORY VALUES: As Noted RADIOLOGIC STUDIES: As Noted Assessment IMPRESSION: Bloating abdominal distention irregular bowel activity PLAN: I plan to perform upper and lower endoscopy. We discussed the risks and benefits of the planned endoscopy. I have informed the patient that complications can occur including failure to complete the endoscopy and perforation. The patient had the opportunity to ask questions concerning the planned endoscopy. My staff has also explained the procedure to the patient in understandable terms and has given the patient printed material concerning the procedure. The patient freely consents to surgery. I plan to use golytely bowel preparation for endoscopy I plan for monitored anesthetic care. Diagnoses: (R14.0) Bloating (primary encounter diagnosis) (R19.4) Change in bowel habits A letter was sent to Dr. Hipolito Melo DO indicating the above finding for this patient. Return to Clinic: The patient is instructed to follow-up with me after the testing has been completed. West Piedra MD documented in this encounter [facility] 09-11-2022 Instructions West Piedra MD - 09/11/2022 9:10 AM EST Images from the original note were not included. Bowel Preparation Instructions for: Golytely, Nulytely, Trilyte or Colyte (polyethylene glycol 3350 and electrolytes) IF YOU DO NOT FOLLOW THESE DIRECTIONS, YOUR COLONOSCOPY WILL BE CANCELLED. Angela Instructions: Your bowel must be empty so that your doctor can clearly view your colon. Follow all of the instructions in this handout EXACTLY as they are written. Do NOT eat any solid food the ENTIRE day before your colonoscopy. Drink only clear liquids. Buy your bowel preparation at least 5 days before your colonoscopy. TRANSPORTATION on the Day of Your Exam A responsible person MUST be present with you at Check In prior to your colonoscopy and REMAIN in the endoscopy area until you are discharged. You are NOT ALLOWED to drive, take a taxi or bus, or leave the Endoscopy Center ALONE. If you do not have a responsible entry driver operator (family member or friend) with you to take you home, your exam cannot be done with sedation and will be cancelled. Please bring a list of all of your current medications, including any Over-the Counter medications with you. Medications If you take insulin, diabetic medications or blood thinners such as Coumadin (warfarin), Plavix (clopidogrel), Ticlid (ticlopidine hydrochloride), Agrylin (anagrelide), Xarelto (Rivaroxaban), Pradaxa (Dabigatran), Eliquis (Apixaban), and Effient (Prasugrel). You MUST call the doctors who orders those medicines for instructions on altering the dosage before your colonoscopy. All other medications should be taken the day of the exam with a sip of water including ASPIRIN. Five (5) Days Before Your Colonoscopy Do NOT take medicines that stop diarrhea - such as Imodium, Kaopectate, or Pepto Bismol. Do NOT take fiber supplements - such as Metamucil, Citrucel, or Perdiem. Do NOT take products that contain iron - such as multi-vitamins (the label lists what is in the products). Do NOT take Vitamin E. Buy the prescription bowel preparation solution at your local pharmacy or drugstore pharmacy. 06/2019 Bowel Preparation Instructions for: Golytely, Nulytely, Trilyte or Colyte (polyethylene glycol 3350 and electrolytes) Three (3) Days Before Your Colonoscopy Do NOT eat high-fiber foods - such as popcorn, beans, seeds (flax, sunflower, quinoa), multigrain bread, nuts, salad/vegetables, or fresh and dried fruit. One (1) Day Before Your Colonoscopy Only drink clear liquids the ENTIRE DAY before your colonoscopy. Do NOT eat any solid foods. Drink at least 8 ounces of clear liquids every hour after waking up. The clear liquids you can drink include: Clear Liquid (NO RED LIQUIDS) DO NOT DRINK Gatorade, Pedialyte or Powerade Clear broth or bouillon Coffee or tea (no milk or non-dairy creamer) Carbonated and non-carbonated soft drinks Farhad-Aid or other fruit flavored drinks Strained fruit juices (no pulp) Jell-O, popsicles, hard candy Water Alcohol Milk or non-dairy creamers Noodles or vegetables in soup Juice with pulp Liquid you cannot see through Do not use tobacco/vaping products The bowel preparation solution will be consumed in two parts. Mix the solution the evening before your colonoscopy and refrigerate before drinking. You may add the flavor pack that came with the bowel preparation. Do NOT add ice, sugar or any other flavorings to the solution. Part 1 At 6:00 PM - Evening before your colonoscopy Drink an 8-oz glass of bowel preparation every 10 minutes for a total of 8 glasses. You may continue to drink clear liquids until midnight. Part 2 On the day of your colonoscopy you may drink clear liquids up to (three) 3 hours before your procedure. 4 1/2 hours before your colonoscopy Drink an 8-oz glass of bowel preparation every 10 minutes for a total of 8 glasses. Fifteen (15) minutes later, drink an 8-oz glass of clear liquids every 15 minutes for a total of 2 glasses. You may continue to drink clear liquids up to (three) 3 hours before your exam. 2 06/2019 documented in this encounter [facility] 09-11-2022 Nurse Note REVIEW OF SYSTEMS: General: The patient denies fatigue, denies weight loss, denies weight gain, denies feeling hot, and denies feelings of cold. Eyes: The patient denies glaucoma, denies eye injury/surgery, does not wear glasses or contacts. Ear/Nose/Throat: The patient notes allergies, notes hayfever, denies ear infections, and denies bloody noses. Cardiovascular: The patient denies chest pain, denies heart disease, denies high blood pressure,denies cardiac stent, denies prior heart attack, denies irregular heart beat, denies high cholesterol, denies poor circulation, denies heart failure, other cardiac issues, denies claudication, denies cold feet, denies peripheral arterial stent. Respiratory: The patient denies tuberculosis, notes pneumonia, denies frequent cough, denies pulmonary embolism, denies shortness of breath, and denies coughing up blood, notes other lung problems. Gastrointestinal: The patient denies difficulty swallowing, notes acid reflux, notes ulcers, denies vomiting, denies jaundice/hepatitis, denies gallbladder problems, denies black or tarry stools, notes hemorrhoids, denies bleeding from rectum, notes diverticulitis, denies constipation, denies diarrhea, denies loss of stool control, and denies hernias. Kidney/Bladder: The patient denies kidney stones, denies urine infections, and denies bloody urine. Skin: The patient denies a history of skin cancer, denies bleeding/changing moles, and denies a history of skin rash. Neurologic: The patient denies a history of epilepsy/convulsions, denies headaches, denies head/spinal injuries, and denies stroke/TIA. Psychiatric: The patient denies psychiatric medications, denies depression, and denies voices, denies substance abuse. Endocrine: The patient denies thyroid disorders, denies diabetes, and denies hormonal problems. Hematologic: The patient denies a history of bruising, denies bleeding, and denies anemia, denies blood clots. Infections: The patient notes a history of measles and mumps, denies rheumatic fever, and denies sexually transmitted diseases. Musculoskeletal: The patient denies back pain/injury, denies back problems, notes sciatica, denies knee/foot trouble, denies arthritis, or denies gout. When was patient's last Mammogram screening? N/A Last Colonoscopy: 11/2018 Ghislaine Collier LPN documented in this encounter [facility] 01-21-2022 Miscellaneous Notes Message left for patient on secure VM to call to schedule ER f/u if SOB not improved. Also advised will need to establish care with a provider. documented in this encounter [facility] documented as of this encounter (statuses as of 01/23/2022) [facility] History of Past illness Narrative* Problem Noted Date Resolved Date Diverticulitis of colon (wit hout mention of hemorrhage)(562.11) 03/30/2006 03/31/2011 Other specified types of cystitis(595.89) 200503/31/2011 Other malaise and fatigue 01/23/20062010 Chest pain, unspecified 01/23/2006 03/31/20 11 Other diseases of pharynx, not elsewhere classif ied(478.29) 03/31/2011 documented as of this encounter (statuses as of 09/11/2022) [facility] History of Past illness Narrative* Problem Noted Date Resolved Date Diverticulitis of colon (wit hout mention of hemorrhage)(562.11) 03/30/2006 03/31/2011 Other specified types of cystitis(595.89) 200503/31/2011 Other malaise and fatigue 01/23/20062010 Chest pain, unspecified 01/23/2006 03/31/20 11 Other diseases of pharynx, not elsewhere classif ied(478.29) 03/31/2011 documented as of this encounter (statuses as of 10/02/2022) [facility] History of Past illness Narrative* Problem Noted Date Resolved Date Diverticulitis of colon (wit hout mention of hemorrhage)(562.11) 03/30/2006 03/31/2011 Other specified types of cystitis(595.89) 200503/31/2011 Other malaise and fatigue 01/23/20062010 Chest pain, unspecified 01/23/2006 03/31/20 11 Other diseases of pharynx, not elsewhere classif ied(478.29) 03/31/2011 documented as of this encounter (statuses as of 10/14/2022) [facility] Diagnosis Bloating- Primary Flatulence, eructation, and gas pain Change in bowel habits Other symptoms involving digestive system [facility] Diagnosis Personal history of colonic polyps- Primary Bloating Flatulence, eructation, and gas pain Change in bowel habits Other symptoms involving digestive system [facility] Diagnosis History of colonic polyps- Primary Personal history of colonic polyps Abdominal bloating Flatulence, eructation, and gas pain Chronic superficial gastritis without bleeding Atrophic gastritis without mention of hemorrhage Gastroesophageal reflux disease with esophagitis without hemorrhage documented in this encounter [facility] for referral (narrative)* Outpatient Procedure (Routine) - Authorized Specialty Diagnoses / Procedures Referred By Francisco knight Referred To Contact [facility] Diagnoses Bloating Change in bowel habits Procedures COLONOSCOPY DIAGNOSTIC COLONOSCOPY FLX DX W/COLLJ SPEC WHEN PFRMD West Piedra MD [address] [place] [address] [address] Referral ID Status Reason Start Date Expiration Date Visits Requested Visits Authorized [id number] Authorized Auto-Generat ed Referral 09/11/2022 09/12/2023 1 1 * Outpatient Procedure (Routine) - Authorized Specialty Diagnoses / Procedures Referred By Francisco knight Referred To Contact [facility] Diagnoses Bloating Change in bowel habits Procedures EGD DIAGNOSTIC ESOPHAGOGASTRODUODENOSC OPY TRANSORAL DIAGNOSTIC West Piedra MD [address] [place] [address] [place] [id number] Referral ID Status Reason Start Date Expiration Date Visits Requested Visits Authorized [id number] Authorized Auto-Generat ed Referral 09/11/2022 09/12/2023 1 1 [facility] for referral (narrative)* Outpatient Procedure (Routine) - Closed Specialty Diagnoses / Procedures Referred By Francisco knight Referred To Contact [facility] Diagnoses Bloating Change in bowel habits Procedures COLONOSCOPY DIAGNOSTIC COLONOSCOPY FLX DX W/COLLJ SPEC WHEN PFWest Lockhart MD [address] [place] [address] [address] Referral ID Status Reason Start Date Expiration Date V isits Requested Visits Authorized [id number] Closed Auto-Generate d Referral 09/11/2022 09/12/2023 1 1 * Outpatient Procedure (Routine) - Closed Specialty Diagnoses / Procedures Referred By Francisco knight Referred To Contact [facility] Diagnoses Bloating Change in bowel habits Procedures EGD DIAGNOSTIC ESOPHAGOGASTRODUODENOSC OPY TRANSORAL DIAGNOSTIC West Piedra MD [address] [place] [address] [facility] [address] [place] [address] Referral ID Status Reason Start Date Expiration Date V isits Requested Visits Authorized [id number] Closed Auto-Generate d Referral 09/11/2022 09/12/2023 1 1 [facility] for visit Narrative* Outpatient Procedure (Routine) - Closed Specialty Diagnoses / Procedures Referred By Francisco knight Referred To Contact [facility] Diagnoses Bloating Change in bowel habits Procedures COLONOSCOPY DIAGNOSTIC COLONOSCOPY FLX DX W/COLLJ SPEC WHEN PFRMD West Piedra MD [address] [place] [address] [address] Referral ID Status Reason Start Date Expiration Date V isits Requested Visits Authorized [id number] Closed Auto-Generate d Referral 09/11/2022 09/12/2023 1 1 [facility] Summary Purpose Family History No Family History Records FoundNo Family History Records FoundNo Family History Records Found Advance Directives No Advanced Directives Records FoundDocuments on File Type Date Recorded Patient [employer] Expl anation Advance Directive(s) 11/19/2018 8:29 AM Medications Administered Section Inactive Administered Medications - up to 3 most recent administrations Medication Order MAR Action Action Date Dose Rate Site benzocaine 20% 4 Reyno (TOPEX) 4 Reyno, TOPICAL, ONCE, 1 dose, On Thu10/01/22 at 1130, APPLY per LIP prior to start of procedure. - Pharmaceutical Waste: Aerosol -, Intraprocedure Given 10/01/2022 11:02 AM EDT 4 Sprays lactated ringers iv infusion 30 mL/hr, INTRAVENOUS, CONTINUOUS, Starting on Thu10/01/22 at 0930, Until Thu10/01/22 at 1159, Preprocedure New Bag/Syringe/Bottle 10/01/2022 9:48 AM EDT 30 mL/hr 30 mL/hr Additional Source Comments (unrecognized sect ion and content) No Status Records FoundNo Status Records FoundNo Status Records Found INFORMATION SOURCE (unrecogn ized section and content) DATE CREATED AUTHOR AUTHOR'S ORGANIZ ATION 10/05/2022 [facility] DATE CREATED AUTHOR AUTHOR'S ORGANIZ ATION 12/23/2022 [facility] Source Comments (unrecognize d section and content) In the event this informatio n is protected by the Federal Confidentiality of Alcohol and Drug Abuse Patient Records regulations: The Federal rules restrict any use of the information to criminally investigate or prosecute any alcohol or drug abuse patient.[facility] the event this information is protected by the Federal Confidentiality of Alcohol and Drug Abuse Patient Records regulations: The Federal rules restrict any use of the information to criminally investigate or prosecute any alcohol or drug abuse patient.[facility] the event this information is protected by the Federal Confidentiality of Alcohol and Drug Abuse Patient Records regulations: The Federal rules restrict any use of the information to criminally investigate or prosecute any alcohol or drug abuse patient.[facility] the event this information is protected by the Federal Confidentiality of Alcohol and Drug Abuse Patient Records regulations: The Federal rules restrict any use of the information to criminally investigate or prosecute any alcohol or drug abuse patient.[facility] Reason for Visit (unrecogniz ed section and content) Reason Comments Consult Bowel issues Reason Comments Follow Up Colon/EGD 3-29 Care Teams (unrecognized sec tion and content) Pairer Inspector Relationship Specialty Start Date End Date Hipolito Melo DO [address] [place] [address] PCP - General Family Medicine 09/11/22 Pairer Inspector Relationship Specialty Start Date End Date Hipolito Melo DO [address] [place], [place] [id number] PCP - General Family Medicine 09/11/22 Pairer Inspector Relationship Specialty Start Date End Date Hipolito Melo DO [address] [place], [place] [id number] PCP - General Family Medicine 09/11/22 FOR RECORDS PERTAINING TO PATIENTS WHO ARE OR HAVE BEEN ENROLLED IN A CHEMICAL DEPENDENCY/SUBSTANCEABUSE PROGRAM, SOME INFORMATION MAY BE OMITTED. This clinical summary was aggregated from multiple sources. Caution should be exercised in using it in the provision of clinical care. This summary normalizes information from multiple sources, and as a consequence, information in this document may materially change the coding, format and clinical context of patient data. In addition, data may be omitted in some cases. CLINICAL DECISIONS SHOULD BE BASED ON THE PRIMARY CLINICAL RECORDS. [facility]. provides no warranty or guarantee of the accuracy or completeness of information in this document.
[2023-07-14 08:13] LABS: Reflex Troponin-HS? (from REC) Y
== END 2023-07-14 07:14 | disposition home or self-care (01) ==
PROVIDERS: Emergency Provider Emergency Medicine; PCP Family Medicine; Visit Provider Emergency Medicine
DX: R42 Dizziness and giddiness (principal); J44.9 Chronic obstructive pulmonary disease, unspecified; H93.A9 Pulsatile tinnitus, unspecified ear; F41.9 Anxiety disorder, unspecified; F17.210 Nicotine dependence, cigarettes, uncomplicated
CPT/HCPCS: 71045; 80053; 84484; 85025; 93005; 99284; A4216

== ENCOUNTER 2023-07-16 05:28 | Emergency (ER) | payer OTHER, SELFPAY ==
[2023-07-16 05:30] VITALS: BP 158/76; PULSE 77; RESP 18; TEMP 35.9; O2SAT 99; BMI 29.9
--- NOTE | 2023-07-16 05:53 | CT_ITS ---
INDICATION: Aortic dissection. EXAMINATION: CTA CHEST, ABDOMEN AND PELVIS WITH CONTRAST - TECHNIQUE: A CTA of the chest, abdomen, and pelvis is obtained with sagittal and coronal reconstructed MIP views. Three-dimensional surface rendered sequence of the thoracic and abdominal aorta was obtained. A radiation dose optimization technique was used for this scan. 100 mL of Isovue-370. Oral contrast: None. COMPARISON: CT of the chest at February 17, 2022. FINDINGS: CT CHEST: THORACIC AORTA: No atheromatous disease, no aneurysmal changes or dissection. ABDOMINAL AORTA: No aneurysm or dissection. There is mild calcified and noncalcified atheromatous disease. The iliac arteries have mild atheromatous disease. There is possible thrombus visible within the left renal vein and possibly the inferior vena cava as well. Some of this appearance may be related to mixing of nonenhanced and unenhanced blood. LUNGS: The lungs are well-expanded without acute changes. There are curvilinear opacities visible in left upper lobe that may be secondary to pulmonary fibrosis. There are also curvilinear opacities within the lingula that may represent pulmonary fibrosis. The lungs are otherwise clear. There is disease within the periphery of the upper lobes pressing and paraseptal emphysema. No effusions or pneumothorax. MEDIASTINUM: The thyroid gland is normal. No mediastinal or hilar adenopathy. HEART: Heart is normal size. No pericardial effusion. No CAD. CT ABDOMEN AND PELVIS: LIVER: The liver enhances homogeneously. No masses identified. GALLBLADDER: The CBD is normal. Normal gallbladder. SPLEEN: Normal. PANCREAS: No masses or inflammation. ADRENAL GLANDS: Normal. KIDNEYS AND URETERS: The kidneys both enhance appropriately. There are normal size and shape. No hydronephrosis or nephrolithiasis. There are small renal cysts with the larger cysts on the left measuring up to 1.7 cm. STOMACH: Normal. SMALL BOWEL: No abnormal distention of the small bowel. MESENTERY: No mesenteric inflammation. No ascites. COLON: No significant diverticulosis, masses or inflammation. The colon otherwise is normal. There is a large fatty ileocecal valve. APPENDIX: The appendix is NOT visualized. IVC: Normal. RETROPERITONEUM: No retroperitoneal lymphadenopathy. PELVIC STRUCTURES: Normal bladder. SOFT TISSUES ABDOMEN: The anterior abdominal wall is normal. SOFT TISSUE CHEST: The extrathoracic soft tissues are normal. BONES: No fractures. There is narrowing of the L5-S1 disc space height secondary to degenerative disc disease. There is decreased height of the L5 vertebral body 5 secondary to mild old compression fracture. There is vacuum disc phenomenon at L4-5 consistent with degenerative disc disease. CT/CTA Chst, Abd, Pel W and/or WO IMPRESSION: 1. No CTA evidence for aortic dissection. 2. Questionable thrombus within the left renal vein versus mixing of nonenhanced and enhanced blood. 3. No CT evidence for pulmonary embolus. 4. Left upper lobe and lingular pulmonary fibrosis. 5. Emphysema. Electronically Signed: Medina Sanabria MD at 7:46 EST Reading Location ID and State: [facility] / [place] , Service support ,
--- NOTE | 2023-07-16 05:54 | EKG12_ITS ---
Test Reason : PALPS/CP Blood Pressure : / mmHG Vent. Rate : 081 BPM Atrial Rate : 081 BPM P-R Int : 156 ms QRS Dur : 092 ms QT Int : 380 ms P-R-T Axes : 055 009 016 degrees QTc Int : 441 ms Sinus rhythm with marked sinus arrhythmia Otherwise normal ECG Confirmed by PAU MOYER, JENNIFER ([id number]), primer expeditor and drier NICOLE CLARK ([id number]) on 07/17/2023 7:14:21 AM Referred By: Confirmed By:JENNIFER MAI MD
--- NOTE | 2023-07-16 05:56 | EX.ED.DYSGE1 ---
HPI History of Present Illness Chief Complaint: Chest Pain Informant: patient and spouse/S.O. Narrative Narrative: 62-year-old male presenting with his stating we need answers . Patient is here the third time in the emergency department. He has seen ENT ophthalmology neurology primary care. Patient has a wooshing noise in his ears. He states he feels lightheaded and weaker than normal. He states he feels palpitations or pulses in in his epigastric region. states that they need test run. He states he should probably see a steam press tender or have an MRI of his brain. Patient has previously had CTA of the head and neck. He has had EKGs troponins. From what I am gathering his testing really have not revealed a definitive source. He states he has lost about 19 pounds this week. He states he has not ate for the past couple days just not feeling like it. This morning he was so weak he states he barely could get out of bed. [facility] Medical History Stage 2 moderate COPD by GOLD classification Home Medications albuterol sulfate 90 mcg/actuation aerosol inhaler 2 puff inhalation Q4H PRN shortness of breath or wheezing #8.5 grams 06/11/22 [Rx Last Taken Unknown] Allergy/AdvReac Type Severity Reaction Status Date / Time erythromycin base Allergy Rash Verified 07/16/23 05:29 [Erythromycin Base] Family History Father Cancer Mother Abnormal respiratory function Social History Smoking Status: Current every day smoker tobacco type: cigarettes ROS ROS ED ROS Narrative Generalized weakness lightheadedness l Constitutional Constitutional ED: Denies chills, fever(s) or weight loss Eyes Eyes: Reports blurry vision; Denies change in vision or diplopia ENT ENT ED: Reports other Details: wooshing noise in ears ; Denies ear pain, rhinorrhea or sore throat Cardiovascular Cardiovascular: Reports palpitations and other Details: heart beating strong ; Denies chest pain, orthopnea or racing heartbeat Respiratory/Chest Respiratory/Chest: Denies cough, dyspnea or orthopnea Gastrointestinal Gastrointestinal: Reports other Details: epigastric pulsing ; Denies abdominal pain, diarrhea, nausea or vomiting Genitourinary Genitourinary ED: Denies dysuria, hematuria or urinary frequency Musculoskeletal Musculoskeletal: Denies arthralgias or myalgias Integumentary Denies abscess or rash Neurologic Neurologic: Reports headache(s); Denies weakness Psychiatric Psychiatric: Denies anxiety, depression, suicidal ideation or suicidal thoughts Endocrine Endocrinology: Denies polydipsia, polyphagia or polyuria Allergic/Immunologic Allergic/Immunologic ED: Denies mouth swelling, tongue swelling or urticaria EXAM Physical Exam Const Vital Signs: 07/16/23 05:30 07/16/23 07:34 07/16/23 08:34 Temperature 96.6 F L Temperature Source Temporal Pulse Rate 77 86 76 Respiratory Rate 18 18 18 Blood Pressure 158/76 H 127/90 H 125/84 H Blood Pressure Mean 103 102 97 Pulse Ox 99 97 96 Oxygen Delivery Method Room Air Room Air Room Air MDM MDM MDM Narrative Medical decision making narrative: Patient's been in normal sinus rhythm. Basic blood work shows a white count 13.7. Troponin is again normal at 11. Total bilirubin 2.2 which has been elevated before. CMP is otherwise negative. Urinalysis negative. CTA of the chest abdomen pelvis is negative for dissection. No pulmonary embolism noted. At this point I do not have definitive evidence that this is cardiac in nature. I am not finding any objective findings. I would recommend that he should he follow-up with cardiology and possibly neurology and certainly primary care. Do believe there is a degree of anxiety that isPlaying a role particularly like his blood pressure when he comes in very anxious and his blood pressure is elevated and then over time it comes down. History & Record Review Discussion w/independent historian: Patient and Significant other Lab Data Attestation: I reviewed the patient's lab results. Labs: Laboratory Results - last 24 hr 07/16/23 07/16/23 05:40 06:05 WBC 13.7 H RBC 5.28 Hgb 15.9 Hct 47.7 MCV 90.3 MCH 30.1 MCHC 33.3 RDW Std Deviation 45.1 H RDW Coeff of [place] 13.5 Plt Count 151 MPV 9.7 Immature Gran % (Auto) 0.900 Neut % (Auto) 69.5 Lymph % (Auto) 21.1 [place] % (Auto) 7.7 Eos % (Auto) 0.3 Baso % (Auto) 0.5 Absolute Neuts (auto) 9.5 H Absolute Lymphs (auto) 2.89 Nucleated RBC % 0 Reactive Lymphocytes 2+ PT 12.8 INR 1.0 APTT 28.1 Sodium 133 L Potassium 3.6 Chloride 101 Carbon Dioxide 24.0 Anion Gap 8 BUN 8 Creatinine 1.13 Estim Creat Clear Calc 84.14 Est GFR (MDRD) Af Amer 85 Est GFR (MDRD) Non-Af 70 BUN/Creatinine Ratio 7.1 L Glucose 122 H Calcium 8.8 Total Bilirubin 2.20 H Direct Bilirubin 0.25 AST 28 ALT 30 Alkaline Phosphatase 85 Troponin I High Sens 11 Total Protein 7.3 Albumin 4.0 Globulin 3.3 Lipase 20 Urine Color Yellow Urine Clarity Clear Urine pH 6.5 Ur Specific [place] 1.010 Urine Protein Negative Urine Glucose (UA) Normal Urine Ketones 5 H Urine Occult Blood Negative Urine Nitrite Negative Urine Bilirubin Negative Urine Urobilinogen Normal Ur Leukocyte Esterase Negative Urine RBC 0 SEEN Urine WBC 0 SEEN Ur Squamous Epith Cells 0 SEEN Urine Bacteria 0 SEEN Urine Mucus 0 SEEN Radiography Diagnostic Testing: Clinical Impression(s) from Imaging Studies Chest/Abdomen/Pelvis CTA 07/16/23 05:53 IMPRESSION: 1. No CTA evidence for aortic dissection. 2. Questionable thrombus within the left renal vein versus mixing of nonenhanced and enhanced blood. 3. No CT evidence for pulmonary embolus. 4. Left upper lobe and lingular pulmonary fibrosis. 5. Emphysema. Electronically Signed: Medina Sanabria MD at 7:46 EST Reading Location ID and State: [address] [place] [address] , Service support , EKG Initial EKG: Attestation: I personally reviewed and interpreted this EKG as follows: Comments: Sinus rhythm with sinus arrhythmia and a ventricular rate of 81 bpm. Prior EKG tracings: available for review Prior: Unchanged Discharge Plan Triage Chief Complaint: Chest Pain ED Provider: Matt Coats Dx/Rx/DC Orders Clinical Impression: Palpitations, Pulsatile tinnitus Prescriptions: No Action albuterol sulfate 90 mcg/actuation HFA aerosol inhaler 2 puff inhalation Q4H PRN (Reason: shortness of breath or wheezing) Qty: 8.5 0RF Primary Care Provider: Nikita Melo Referrals: Jai Gonzalez MD [Med Staff - Active Staff] - As soon as possible (for cardiology examination) Nikita Melo, [Primary Care Provider] - As soon as possible Activity Restrictions/Additional Instructions: I would reccomend following up with Cardiology, Neurology and Primary Care Disposition Disposition: Home, Self Care
[2023-07-16 06:09] LABS: Bacteria 0 SEEN /hpf (None Seen); Mucous, Urine 0 SEEN /hpf (<or=2+); Red Blood Cells-Urine 0 SEEN /hpf (0-5); Squamous Epithelial Cells - UA 0 SEEN /hpf (0-5); White Blood Cells 0 SEEN /hpf (0-5)
[2023-07-16 06:10] LABS: Absolute Lymphocyte Count 2.89 X10^3/uL (0.83-4.51); Absolute Neutrophil Count 9.5 X10^3/uL (2.0-7.7); Basophil# 0.07 X10^3/uL; Basophil% 0.5 % (0-1); Eosinophil# 0.04 X10^3/uL; Eosinophils% 0.3 % (0-5); Hematocrit 47.7 % (40-54); Hemoglobin 15.9 g/dL (13.0-16.5); Lymphocyte # 2.89 X10^3/ul (0.83-4.51); Lymphocyte % 21.1 % (19-41); Mean Corp Hgb Conc 33.3 g/dL (32-36); Mean Corpuscular Hgb 30.1 pg (27.0-32.0); Mean Corpuscular Volume 90.3 fL (80-94); Mean Platelet Vol. 9.7 fl (6.2-12.0); Monocyte# 1.05 X10^3/uL; Monocyte% 7.7 % (0-10); NRBC Flagged by Analyzer 0 % (0-5); Neutrophil # 9.52 X10^3/uL (2.7-7.7); Neutrophil % 69.5 % (47-70); POSITIVE MORPHOLOGY YES; Platelet Count 151 K/mm3 (150-450); RBC Distribution Width CV 13.5 % (11.6-14.6); RBC Distribution Width SD 45.1 fl (35.1-43.9); Red Blood Count 5.28 M/mm3 (4.6-6.2); White Blood Count 13.7 K/mm3 (4.4-11.0)
[2023-07-16 06:13] LABS: Differential Indicated SCAN CRITERIA MET
[2023-07-16 06:14] LABS: Color, Urine Yellow (Yellow); Glucose, Dipstick Normal (Normal); Ketone-Dipstick 5 mg/dl (Negative); Leukocyte Esterase-Dipstick Negative /ul (Negative); Nitrite-Dipstick Negative (Negative); Occult Blood-Urine Negative /ul (Negative); Protein-Dipstick Negative (Negative); Urine Bilirubin Dipstick Negative (Negative); Urine Clarity Clear (Clear); Urine Urobilinogen Normal (Normal); Urine pH 6.5 (5.0 - 8.0)
[2023-07-16 06:21] LABS: Prothrombin Time (Protime)PT. 12.8 SECONDS (11.7-14.9)
[2023-07-16 06:22] LABS: Partial Thromboplast Time 28.1 Seconds (24.1-36.2)
--- OUTSIDE RECORDS SUMMARY | 2023-07-16 06:25 | XMS RPT_ITS | CCD ---
Author Name Unknown Address [address] [place] [address] Organization [facility] Care Team Providers Care Surgical Aides Teacher Name Role Phone [facility] Unavailable Unavaila ble [facility], [facility] Unavailable Unavaila ble [facility] Unavailable Unavaila ble [facility], [facility] Unavailable Unavaila ble [facility], [facility] Unavailable Unavaila ble [facility] Unavailable Unavaila ble [facility], [facility]available Unavaila ble [facility], [facility]available Unavaila ble [facility], [facility] Unavailable Unavaila ble Blaz TYPE MAPPER.FAST FOOD DELIVERY DRIVER, DNP, Matt Primary Care Provider Hipolito Melo [...] Erythromycin; Translations: [ERYTHROMYCIN] Drug Allergy 01-23-2006 Rash [facility] Work Phone: Medications Current Medications Medication Drug [...] Drug Class(es) Dates Sig (Normalized) Sig (Original) [id number] 200 actuat albuterol 0.09 mg/actuat metered dose [...] 10-14-2022 09:46-0400 Body temperature 97.9 [degF] Nicole Schuyler PA-C Work Phone: [facility] 10-14-2022 09:46-0400 Diastolic blood pressure 72 mm[Hg] Nicole Schuyler PA-C Work Phone: [facility] 10-14-2022 09:46-0400 Heart rate 67 /min Nicole Brennon PA-C Work Phone: [facility] 10-14-2022 09:46-0400 SaO2% (BldA) [Mass fraction] 98 % Nicole Schuyler PA-C Work Phone: [facility] 10-14-2022 09:46-0400 Systolic blood pressure 128 mm[Hg] Nicole Brennon PA-C Work Phone: [facility] 10-01-2022 12:00-0400 Body temperature 98.4 [degF] West Piedra MD Work Phone: [facility] 10-01-2022 12:00-0400 Diastolic blood pressure 61 mm[Hg] West Piedra MD Work Phone: [facility] 10-01-2022 12:00-0400 Heart rate 57 /min West Piedra MD Work Phone: [facility] 10-01-2022 12:00-0400 Respiratory rate 21 /min West Piedra MD Work Phone: [facility] 10-01-2022 12:00-0400 SaO2% (BldA) [Mass fraction] 97 % West Piedra MD Work Phone: [facility] 10-01-2022 12:00-0400 Systolic blood pressure 109 mm[Hg] West Piedra MD Work Phone: [facility] 09-11-2022 07:33-0500 Body height 185.4 cm West Piedra MD Work Phone: [facility] 09-11-2022 07:33-0500 Body temperature 97.5 [degF] West Piedra MD Work Phone: [facility] 09-11-2022 07:33-0500 Body weight 102.51 kg West Piedra MD Work Phone: [facility] 09-11-2022 07:33-0500 Diastolic blood pressure 62 mm[Hg] West Piedra MD Work Phone: [facility] 09-11-2022 07:33-0500 Heart rate 76 /min West Piedra MD Work Phone: [facility] 09-11-2022 07:33-0500 SaO2% (BldA) [Mass fraction] 97 % West Piedra MD Work Phone: [facility] 09-11-2022 07:33-0500 Systolic blood pressure 112 mm[Hg] West Piedra MD Work Phone: [facility] Encounters Encounter Date Encounter Type Care Provider Facility Start: 12-22-2022 End: 12-23-2022 ambulatory [facility] Facility:[facility] Start: 10-14-2022 End: 10-15-2022 [facility] Facility:[facility] Start: 10-14-2022 End: 10-14-2022 Patient encounter procedure Nicole Willett PA-C Work Phone: General Surgery Procedures Date Procedure Procedure Detail Performing Clinician Start: 10-01-2022 Esophagogastroduodenoscopy transoral diagnostic West Piedra MD Work Phone: Start: 10-01-2022 Colonoscopy flx dx w/collj spec when pfrmd West Piedra MD Work Phone: Start: 10-01-2022 Colonoscopy West Piedra MD Work Phone: Start: 12-27-2020 Adult depression screening assessment Matt Reyes APRN.FAST FOOD DELIVERY DRIVER, DNP Work Phone: Start: 11-19-2018 Colonoscopy Matt Reyes APRN.AMANDO, BEKA Work Phone: Plan of Treatment Date Care Activity Detail Author Start: 10-02-2027 Colonoscopy COLONOSCOPY [facility] Start: 10-02-2027 COLORECTAL CANCER SCREENING COLORECTAL CANCER SCREENING [facility] Start: 02-08-2027 LIPID SCREEN LIPID SCREEN [facility] Start: 02-08-2027 PROSTATE CANCER SCREENING DISCUSSION PROSTATE CANCER SCREENING DISCUSSION [facility] Start: 12-27-2025 LIPID SCREEN LIPID SCREEN [facility] Start: 12-27-2025 PROSTATE CANCER SCREENING DISCUSSION PROSTATE CANCER SCREENING DISCUSSION [facility] Start: 12-13-2025 Urine microalbumin profile DTAP,TDAP,TD (3 - Td or Tdap) [facility] Start: 02-08-2025 DIABETES SCREEN DIABETES SCREEN [facility] Start: 12-28-2023 DIABETES SCREEN DIABETES SCREEN [facility] Start: 11-20-2023 Colonoscopy COLONOSCOPY [facility] Start: 11-20-2023 COLORECTAL CANCER SCREENING COLORECTAL CANCER SCREENING [facility] Start: 07-06-2022 DEPRESSION ASSESSMENT DEPRESSION ASSESSMENT [facility] Start: 03-06-2022 Influenza vaccination INFLUENZA (#1) [facility] Start: 12-27-2021 Adult depression screening assessment DEPRESSION SCREENING [facility] Start: 01-10-2017 PNEUMOCOCCAL (2 - PCV) PNEUMOCOCCAL (2 - PCV) [facility] Start: 2011 Influenza vaccination LUNG CANCER SCREENING [facility] Start: 2011 SHINGRIX VACCINE (1 of 2) SHINGRIX VACCINE (1 of 2) [facility] Start: 02-25-2007 FECAL OCCULT BLOOD FECAL OCCULT BLOOD [facility] Start: 2006 COLOGUARD (FIT-DNA) COLOGUARD (FIT-DNA) [facility] Start: [address] COLONOGRAPHY [facility] Start: 2006 SIGMOIDOSCOPY SIGMOIDOSCOPY [facility] End: 09-12-2023 COLONOSCOPY DIAGNOSTIC COLONOSCOPY DIAGNOSTIC Endoscopy Routine Bloating Change in bowel habits 1 Occurrences starting 09/11/2022 until 09/12/2023 [facility] Work Phone: Immunizations Immunization Date Immunization Notes Care Provider Fa shadi 01-11-2016 pneumococcal polysaccharide vaccine, 23 valent Matt Reyes APRN.[facility] Work Phone: [facility] Work Phone: 12-14-2015 tetanus toxoid, redu saima diphtheria toxoid, and acellular pertussis vaccine, adsorbed Matt Reyes APRN.[facility] Work Phone: [facility] 04-09-2010 influenza virus vacc ine, unspecified formulation Matt Reyes APRN.[facility] Work Phone: [facility] 04-17-2009 influenza virus vacc ine, unspecified formulation Matt Reyes APRN.[facility] Work Phone: [facility] 04-03-2003 diphtheria and tetan us toxoids, adsorbed for pediatric use Matt Reyes APRN.[facility] Work Phone: [facility] Work Phone: Payers Date Payer Category Payer Unknown [employer] PPO [id number] 2022-Present [phone] [address] [place] [address] PPO [id number] 2022 Unknown [id number] 2013 Unknown [employer] BLUE CARD PPO OOS [id number] 2013-Present [phone] [address] [place] [address] PPO [id number] Social History Date Type Detail Facility [facility]: [facility] Start: 11-16-1984 History of tobacco use Cigarette Smo ker [facility] Start: 12-27-2020 End: 10-14-2022 Alcohol intake Current drinker of alcohol (finding) [facility] Start: 12-27-2020 End: 10-14-2022 Alcohol intake [facility] Start: 1960 Sex Assigned At Male [facility] Work Phone: Start: 09-11-2022 Tobacco use and exposure Smokeless tobacco non-user [facility] Clinical Notes 03-30-2006 to 10-14-2022 Patient InstructionsNicole Willett PA-C - 10/14/2022 10:09 AM Barron Piedra MD - 10/01/2022 12:00 PM Barron Piedra MD - 10/01/2022 12:00 PM EDTPatient Instructions Note Date & Type Note Facility 10-14-2022 Note HNO ID: [id number] Author: Nicole Willett PA-C Service: ? Author Type: Physician Cell Operator Type: Progress Notes Filed: 10/14/2022 12:22 PM Note Text: FOLLOW UP VISIT - ENDOSCOPY NAME: Tomas Bertrand [facility] NO.: [id number] DATE OF SERVICE: 10/14/2022 : 1960 REFERRING [...] which included preparing to see the patient, [id number] patient care, completing clinical documentation, obtaining and/or reviewing separately obtained history, counseling and educating the patient/family/caregiver, independently interpreting results (not separately reported), and communicating results to the patient/family/caregiver. Nicole Willett PA-C [facility] 10-14-2022 Instructions Nicole Willett PA-C - 10/14/2022 10:29 AM EDT -Continue omeprazole for 2-3 months, then may discontinue the medication -Notify office if symptoms worsen or persist despite above measures The following instructions are important for you related to your office visit today with the [facility]. INSTRUCTIONS FOLLOWING A NORMAL [...] you should contact our office immediately @ [phone] and ask to be transferred to the General Surgery department. documented in this encounter [facility] 10-14-2022 History of Presen t illness Narrative FOLLOW UP VISIT - ENDOSCOPY NAME: Tomas Bertrand [facility] NO.: [id number] DATE OF SERVICE: 10/14/2022 : 1960 REFERRING [...] which included preparing to see the patient, [id number] patient care, completing clinical documentation, obtaining and/or reviewing separately obtained history, counseling and educating the patient/family/caregiver, independently interpreting results (not separately reported), and communicating results to the patient/family/caregiver. Nicole Willett PA-C documented in this encounter [facility] 10-01-2022 History and physical note UPDATED PROCEDURAL [...] entered by the nurse and reviewed by dc Nursing Notes: Ghislaine Collier LPN 09/11/2022 7:37 [...] entered by the nurse and reviewed by dc Nursing Notes: Ghislaine Collier LPN 09/11/2022 7:37 [...] West Piedra MD documented in this encounter [facility] 09-11-2022 Note HNO ID: [id number] Author: West Piedra MD Service: ? Author [...] patient denies tu (more content not included)... [facility] 09-11-2022 History of Presen t illness Narrative [...] entered by the nurse and reviewed by dc Nursing Notes: Ghislaine Collier LPN 09/11/2022 7:37 [...] West Piedra MD documented in this encounter [facility] 09-11-2022 Instructions West Piedra MD - 09/11/2022 [...] If you do not have a responsible hazmat cdl driver (family member or friend) with you to [...] exam. 2 06/2019 documented in this encounter [facility] 09-11-2022 Nurse Note REVIEW OF SYSTEMS: General: [...] Ghislaine Collier LPN documented in this encounter [facility] 01-21-2022 Miscellaneous Notes Message left for patient on secure VM to call to schedule ER f/u if SOB not improved. Also advised will need to establish care with a provider. documented in this encounter [facility] documented as of this encounter (statuses as of 01/23/2022) [facility]09-25-2006 History of Past illness Narrative* Problem Noted Date Resolved Date Diverticulitis of colon (wit hout mention of hemorrhage)(562.11) 03/30/2006 03/31/2011 Other specified types of cystitis(595.89) 200503/31/2011 Other malaise and fatigue 01/23/20062010 Chest pain, unspecified 01/23/2006 03/31/20 11 Other diseases of pharynx, not elsewhere classif ied(478.29) 03/31/2011 documented as of this encounter (statuses as of 09/11/2022) [facility] History of Past illness Narrative* Problem Noted Date Resolved Date Diverticulitis of colon (wit hout mention of hemorrhage)(562.11) 03/30/2006 03/31/2011 Other specified types of cystitis(595.89) 200503/31/2011 Other malaise and fatigue 01/23/20062010 Chest pain, unspecified 01/23/2006 03/31/20 11 Other diseases of pharynx, not elsewhere classif ied(478.29) 03/31/2011 documented as of this encounter (statuses as of 10/02/2022) [facility] History of Past illness Narrative* Problem Noted Date Resolved Date Diverticulitis of colon (wit hout mention of hemorrhage)(562.11) 03/30/2006 03/31/2011 Other specified types of cystitis(595.89) 200503/31/2011 Other malaise and fatigue 01/23/20062010 Chest pain, unspecified 01/23/2006 03/31/20 11 Other diseases of pharynx, not elsewhere classif ied(478.29) 03/31/2011 documented as of this encounter (statuses as of 10/14/2022) [facility] Diagnosis Bloating- Primary Flatulence, eructation, and gas pain Change in bowel habits Other symptoms involving digestive system [facility] Diagnosis Personal history of colonic polyps- Primary Bloating Flatulence, eructation, and gas pain Change in bowel habits Other symptoms involving digestive system [facility] Diagnosis History of colonic polyps- Primary Personal history of colonic polyps Abdominal bloating Flatulence, eructation, and gas pain Chronic superficial gastritis without bleeding Atrophic gastritis without mention of hemorrhage Gastroesophageal reflux disease with esophagitis without hemorrhage documented in this encounter [facility] for referral (narrative)* Outpatient Procedure (Routine) - Authorized Specialty Diagnoses / Procedures Referred By Francisco knight Referred To Contact [facility] Diagnoses Bloating Change in bowel habits Procedures COLONOSCOPY DIAGNOSTIC COLONOSCOPY FLX DX W/COLLJ SPEC WHEN PFRMD West Piedra MD [address] [place] [address] [address] Referral ID Status Reason Start Date Expiration Date Visits Requested Visits Authorized [id number] Authorized Auto-Generat ed Referral 09/11/2022 09/12/2023 1 1 * Outpatient Procedure (Routine) - Authorized Specialty Diagnoses / Procedures Referred By Francisco knight Referred To Contact [facility] Diagnoses Bloating Change in bowel habits Procedures EGD DIAGNOSTIC ESOPHAGOGASTRODUODENOSC OPY TRANSORAL DIAGNOSTIC West Piedra MD [address] [place] [address] [place] [id number] Referral ID Status Reason Start Date Expiration Date Visits Requested Visits Authorized [id number] Authorized Auto-Generat ed Referral 09/11/2022 09/12/2023 1 1 [facility] for referral (narrative)* Outpatient Procedure (Routine) - Closed Specialty Diagnoses / Procedures Referred By Francisco knight Referred To Contact [facility] Diagnoses Bloating Change in bowel habits Procedures COLONOSCOPY DIAGNOSTIC COLONOSCOPY FLX DX W/COLLJ SPEC WHEN PFWest Lockhart MD [address] [place] [address] [address] Referral ID Status Reason Start Date Expiration Date V isits Requested Visits Authorized [id number] Closed Auto-Generate d Referral 09/11/2022 09/12/2023 1 1 * Outpatient Procedure (Routine) - Closed Specialty Diagnoses / Procedures Referred By Francisco knight Referred To Contact [facility] Diagnoses Bloating Change in bowel habits Procedures EGD DIAGNOSTIC ESOPHAGOGASTRODUODENOSC OPY TRANSORAL DIAGNOSTIC West Piedra MD [address] [place] [address] [facility] [address] [place] [address] Referral ID Status Reason Start Date Expiration Date V isits Requested Visits Authorized [id number] Closed Auto-Generate d Referral 09/11/2022 09/12/2023 1 1 [facility] for visit Narrative* Outpatient Procedure (Routine) - Closed Specialty Diagnoses / Procedures Referred By Francisco knight Referred To Contact [facility] Diagnoses Bloating Change in bowel habits Procedures COLONOSCOPY DIAGNOSTIC COLONOSCOPY FLX DX W/COLLJ SPEC WHEN PFRMD West Piedra MD [address] [place] [address] [address] Referral ID Status Reason Start Date Expiration Date V isits Requested Visits Authorized [id number] Closed Auto-Generate d Referral 09/11/2022 09/12/2023 1 1 [facility] Summary Purpose Family History No Family History Records FoundNo Family History Records FoundNo Family History Records Found Advance Directives No Advanced Directives Records FoundDocuments on File Type Date Recorded Patient Secretary To The Vice President Expl anation Advance Directive(s) 11/19/2018 8:29 AM Medications Administered Section Inactive Administered Medications - up to 3 most recent administrations Medication Order MAR Action Action Date Dose Rate Site benzocaine 20% 4 Banner (TOPEX) 4 Banner, TOPICAL, ONCE, 1 dose, On Thu10/01/22 at [...] CREATED AUTHOR AUTHOR'S ORGANIZ ATION 10/05/2022 [facility] DATE CREATED AUTHOR AUTHOR'S ORGANIZ ATION 12/23/2022 [facility] Source Comments (unrecognize d section and content) In the event this informatio n is protected by the Federal Confidentiality of Alcohol and Drug Abuse Patient Records regulations: The Federal rules restrict any use of the information to criminally investigate or prosecute any alcohol or drug abuse patient.[facility] the event this information is protected by the Federal Confidentiality of Alcohol and Drug Abuse Patient Records regulations: The Federal rules restrict any use of the information to criminally investigate or prosecute any alcohol or drug abuse patient.[facility] the event this information is protected by the Federal Confidentiality of Alcohol and Drug Abuse Patient Records regulations: The Federal rules restrict any use of the information to criminally investigate or prosecute any alcohol or drug abuse patient.[facility] the event this information is protected by the Federal Confidentiality of Alcohol and Drug Abuse Patient Records regulations: The Federal rules restrict any use of the information to criminally investigate or prosecute any alcohol or drug abuse patient.[facility] Reason for Visit (unrecogniz ed section and content) Reason Comments Consult Bowel issues Reason Comments Follow Up Colon/EGD 3-29 Care Teams (unrecognized sec tion and content) Surgical Aides Teacher Relationship Specialty Start Date End Date Hipolito Melo DO [address] [place] [address] PCP - General Family Medicine 09/11/22 Surgical Aides Teacher Relationship Specialty Start Date End Date Hipolito Melo DO [address] [place], [place] [address] PCP - General Family Medicine 09/11/22 Surgical Aides Teacher Relationship Specialty Start Date End Date Hipolito Melo DO [address] [place], [place] [address] PCP - General Family Medicine 09/11/22 FOR [...] BE BASED ON THE PRIMARY CLINICAL RECORDS. [facility]. provides no warranty or guarantee of the accuracy or completeness of information in this document.
[2023-07-16 06:32] LABS: AST(SGOT) 28 U/L (15-37); Alanine Aminotransfer ALT/SGPT 30 U/L (16-61); Alkaline Phosphatase 85 U/L (45-117); Anion Gap 8 (5-15); BUN 8 mg/dL (7-18); BUN/Creat Ratio 7.1 RATIO (10-20); Bilirubin, Direct 0.25 mg/dL (0.00-0.30); Calcium,Total 8.8 mg/dL (8.5-10.1); Chloride 101 mmol/L (98-107); Creatinine, Serum 1.13 mg/dL (0.70-1.30); EST Glomerular Filtration Rate 70 mL/min (>60); Est Glom Filt Rate - Afr Amer 85 mL/min (>60); Estimated Creatinine Clearance 84.14 ml/min; Globulin 3.3 g/dL (2.2-4.2); Glucose 122 mg/dL (74-106); Lipase 20 U/L (13-75); Potassium 3.6 mmol/L (3.5-5.1); Protein, Total 7.3 g/dL (6.4-8.2); Sodium Level 133 mmol/L (136-145); Troponin-I HS 11 pg/mL (3.0-78.0)
[2023-07-16 06:50] LABS: Reactive Lymphocyte 2+
[2023-07-16 07:34] VITALS: BP 127/90; PULSE 86; RESP 18; O2SAT 97
[2023-07-16 08:34] VITALS: BP 125/84; PULSE 76; RESP 18; O2SAT 96
[2023-07-16 09:09] VITALS: BP 154/72; PULSE 76; RESP 16; O2SAT 98
== END 2023-07-16 09:09 | disposition home or self-care (01) ==
PROVIDERS: Emergency Provider Emergency Medicine; PCP Family Medicine; Visit Provider Emergency Medicine
DX: R00.2 Palpitations (principal); J44.9 Chronic obstructive pulmonary disease, unspecified; H93.A9 Pulsatile tinnitus, unspecified ear; F17.210 Nicotine dependence, cigarettes, uncomplicated
CPT/HCPCS: 71275; 74174; 80048; 80076; 81001; 83690; 84484; 85025; 85610; 85730; 93005; 99283; J7030; Q9967; A4216

== ENCOUNTER → 2023-10-19 | Outpatient (CLI) | payer OTHER, SELFPAY ==
--- NOTE | 2023-10-19 08:17 | EKG12_ITS ---
Test Reason : PRE-OP Blood Pressure : / mmHG Vent. Rate : 077 BPM Atrial Rate : 077 BPM P-R Int : 154 ms QRS Dur : 092 ms QT Int : 392 ms P-R-T Axes : 077 051 017 degrees QTc Int : 443 ms Normal sinus rhythm with sinus arrhythmia Left ventricular hypertrophy T wave abnormality, consider inferior ischemia Abnormal ECG Confirmed by PAU MOYER, JENNIFER ([id number]), photograph editor TIM FULLER ([id number]) on 10/19/2023 1:25:43 PM Referred By: Sage Gutierrez Confirmed By:JENNIFER MAI MD
[2023-10-19 08:43] LABS: Hematocrit 48.6 % (40-54); Hemoglobin 16.1 g/dL (13.0-16.5); Mean Corp Hgb Conc 33.1 g/dL (32-36); Mean Corpuscular Hgb 29.5 pg (27.0-32.0); Mean Corpuscular Volume 89.2 fL (80-94); Mean Platelet Vol. 10.3 fl (6.2-12.0); Platelet Count 152 K/mm3 (150-450); RBC Distribution Width CV 13.2 % (11.6-14.6); Red Blood Count 5.45 M/mm3 (4.6-6.2); White Blood Count 11.8 K/mm3 (4.4-11.0)
[2023-10-19 09:15] LABS: Anion Gap 6 (5-15); BUN 17 mg/dL (7-18); BUN/Creat Ratio 16.8 RATIO (10-20); Calcium,Total 9.5 mg/dL (8.5-10.1); Chloride 105 mmol/L (98-107); Creatinine, Serum 1.01 mg/dL (0.70-1.30); EST Glomerular Filtration Rate 80 mL/min (>60); Est Glom Filt Rate - Afr Amer 96 mL/min (>60); Glucose 110 mg/dL (74-106); Potassium 3.8 mmol/L (3.5-5.1); Sodium Level 134 mmol/L (136-145)
== END | disposition home or self-care (01) ==
LOC: PSN 08:15
PROVIDERS: PCP Family Medicine; Referring Provider Otolaryngology; Visit Provider Otolaryngology
DX: Z01.818 Encounter for other preprocedural examination (principal)
CPT/HCPCS: 36415; 80048; 85027; 93005

== ENCOUNTER → 2023-10-30 | Outpatient (CLI) | payer OTHER, SELFPAY ==
--- NOTE | 2023-10-30 06:23 | CT_ITS ---
STUDY: LOW DOSE CT LUNG CANCER SCREENING REASON FOR EXAM: Male, 63 years old. Personal history of nicotine dependence. The patient smoked 1 pack per day for 40 years. RADIATION DOSAGE (If Supplied By Facility): CTDIvol = ( 3.02 ) mGy, DLP = ( 110.23 ) mGycm TECHNIQUE: No contrast was administered. Low dose technique was utilized (average mAS-38 and kVp 120). 1.25 mm axial source images with a slice interval of 1.25-mm were reconstructed in lung windows. 2.5 mm axial source images with a slice interval of 2.5-mm were reconstructed in lung windows. 5.0 mm axial source images with a slice interval of 5.0-mm were reconstructed in soft tissue windows. COMPARISON: Comparison is made with prior examination dated July 16, 2023. NODULES: No suspicious nodules are seen. Emphysema: Persistent heterogeneous scarring in the left upper lobe. Mild degree of emphysematous changes in the upper lobes. Endobronchial lesion: None Aorta: Atherosclerotic plaque formation. CORONARY ARTERIES: Coronary artery calcification is seen. Heart: Unremarkable Pulmonary artery: Unremarkable Mediastinal nodes: Small benign-appearing mediastinal lymph nodes. Other chest and abdominal findings: CT/Low Dose CT Lung Screening IMPRESSION: Lung-RADS category 2 - Continue annual screening with LDCT in 12 months. IMPORTANT NOTES FOR USE: ACR Lung-RADS Version 1.1 Assessment Categories Release Date: 2018 Category: Coded 0-4 bases on nodule(s) with highest degree of suspicion. Negative screen is defined as categories 1 and 2; a positive screen is defined as categories 3 and 4. Category 3 and 4A nodules that are unchanged on interval CT should be coded as category 2, and individuals returned to screening in 12 months. Category 4X: Category 3 or 4 nodules with additional imaging findings that increase the suspicion of lung cancer, such as spiculation, GGN that doubles in size in 1 year, enlarged lymph notes, etc. Category Modifiers: S (significant finding unrelated to lung cancer) Electronically Signed: Gideon Pompa MD at 10:05 EDT ,
== END | disposition home or self-care (01) ==
LOC: CT 06:22
PROVIDERS: PCP Family Medicine; Referring Provider Internal Medicine Pulmonary Disease; Visit Provider Internal Medicine Pulmonary Disease
DX: Z12.2 Encounter for screening for malignant neoplasm of respiratory organs (principal); Z87.891 Personal history of nicotine dependence
CPT/HCPCS: 71271

== ENCOUNTER → 2024-04-27 | Outpatient (CLI) | payer OTHER, SELFPAY ==
--- NOTE | 2024-04-27 10:01 | MRI_ITS ---
EXAM: MR HEAD WITHOUT AND WITH INTRAVENOUS CONTRAST CLINICAL INDICATION: bilateral pulsatile tinnitus; tension COUGHLIN; christopher cis TECHNIQUE: Multiplanar and multisequence MR images of the brain were obtained without and with intravenous contrast. CONTRAST: IV 17cc clariscan COMPARISON: CTA brain March 12, 2023 mentioned prominent cisterna magna and posterior fossa, no suspicious vascular findings. There was no Chiari malformation and major dural venous sinuses were enhanced. FINDINGS: BRAIN AND EXTRA-AXIAL SPACES: No suspicious mass. Again noted prominent cisterna magna, similar size and configuration compared to 2022 CTA. No restricted diffusion. Mild cerebral volume loss. No Chiari malformation, stenosis at the superior cervical spine, or midbrain compression. Dominant right vertebral artery similar to prior CTA. No intra- or extra-axial hemorrhage. No evidence of acute infarct. There is preservation of the murphy/white matter interface. Posterior fossa structures are unremarkable. SELLA: High-resolution coronal enhanced imaging of the pituitary fossa was included, no visible pituitary lesion. AUDITORY SYSTEM: Well-aerated middle ears and mastoids sinuses. BONES/JOINTS: Unremarkable. No discrete lytic or blastic abnormalities. SINUSES: Slight mucosal thickening in a few ethmoid air cells. MASTOID AIR CELLS: Unremarkable as visualized. Clear. ORBITS: Unremarkable as visualized. Both globes, extraocular muscles, optic nerves and retrobulbar fat appear unremarkable. VASCULATURE: Unremarkable as visualized. Normal flow voids in the major intracranial circulation. MRI/Brain W/WO Contrast IMPRESSION: 1. No suspicious intracranial findings. 2. Stable posterior fossa variation. 3. On review of the prior CTA there was apparent mild to moderate spinal stenosis at C5-6 predominantly due to osteophytes narrowing the midline canal to 7.5 mm. C5-6 is not included on this exam. No upper cervical stenosis or cord syrinx. Electronically Signed: Helene Nunes MD at 3:38 EDT ,
== END | disposition home or self-care (01) ==
LOC: MRI 09:53
PROVIDERS: PCP Family Medicine; Referring Provider Psychiatry & Neurology Neurology; Visit Provider Psychiatry & Neurology Neurology
DX: H93.13 Tinnitus, bilateral (principal); Q04.9 Congenital malformation of brain, unspecified; G44.209 Tension-type headache, unspecified, not intractable
CPT/HCPCS: 70553; A9575

== ENCOUNTER → 2024-06-23 | Outpatient (CLI) | payer OTHER, SELFPAY ==
[2024-06-23 12:38] LABS: Hemoglobin 15.4 g/dL (13.0-16.5); Mean Corp Hgb Conc 34.2 g/dL (32-36); Mean Corpuscular Hgb 30.6 pg (27.0-32.0); Mean Corpuscular Volume 89.5 fL (80-94); Mean Platelet Vol. 10.6 fl (6.2-12.0); Platelet Count 147 K/mm3 (150-450); RBC Distribution Width CV 13.5 % (11.6-14.6); RBC Distribution Width SD 44.5 fl (35.1-43.9); Red Blood Count 5.03 M/mm3 (4.6-6.2); White Blood Count 7.8 K/mm3 (4.4-11.0)
[2024-06-23 12:56] LABS: Vitamin B12 439 pg/mL (211-911)
[2024-06-23 13:00] LABS: ALB/GLOB Ratio 1.3 RATIO (0.9-2.4); AST(SGOT) 14 U/L (15-37); Alanine Aminotransfer ALT/SGPT 25 U/L (16-61); Albumin, Serum 3.9 g/dL (3.2-5.0); Alkaline Phosphatase 100 U/L (45-117); Anion Gap 3 (5-15); BUN 16 mg/dL (7-18); BUN/Creat Ratio 17.1 RATIO (10-20); Chloride 106 mmol/L (98-107); Creatinine, Serum 0.94 mg/dL (0.70-1.30); EST Glomerular Filtration Rate 87 mL/min (>60); Est Glom Filt Rate - Afr Amer 105 mL/min (>60); Globulin 3.1 g/dL (2.2-4.2); Glucose 101 mg/dL (74-106); Potassium 4.3 mmol/L (3.5-5.1); Sodium Level 137 mmol/L (136-145)
[2024-06-30 09:06] LABS: Free Kappa Light Chains 27.6 mg/L (3.3-19.4); Vitamin B1, Thiamine 125.6 nmol/L (66.5-200.0)
== END | disposition home or self-care (01) ==
PROVIDERS: PCP Family Medicine; Referring Provider Psychiatry & Neurology Neurology; Visit Provider Psychiatry & Neurology Neurology
DX: G62.9 Polyneuropathy, unspecified (principal)
CPT/HCPCS: 36415; 80053; 82607; 82746; 83883; 84425; 84443; 85027

== ENCOUNTER → 2024-07-14 | Outpatient (CLI) | payer OTHER, SELFPAY ==
[2024-07-18 17:07] LABS: Albumin 3.9 g/dL (2.9-4.4); Alpha-1-Globulins 0.3 g/dL (0.0-0.4); Alpha-2-Globulins 0.7 g/dL (0.4-1.0); Immunoglobulin A 107 mg/dL (61-437); Immunoglobulin G 945 mg/dL (603-1613); Immunoglobulin M 226 mg/dL (20-172); PROEL- TOTAL PROTEIN 6.7 g/dL (6.0-8.5)
== END | disposition home or self-care (01) ==
LOC: LAB 11:38
PROVIDERS: PCP Family Medicine; Referring Provider Psychiatry & Neurology Neurology; Visit Provider Psychiatry & Neurology Neurology
DX: G62.9 Polyneuropathy, unspecified (principal)
CPT/HCPCS: 36415; 82784; 84165; 86334; 86335

== ENCOUNTER → 2024-08-22 | Outpatient (CLI) | payer OTHER, SELFPAY ==
[2024-08-22 11:48] LABS: Hemoglobin 15.5 g/dL (13.0-16.5); Mean Corp Hgb Conc 33.7 g/dL (32-36); Mean Corpuscular Hgb 30.5 pg (27.0-32.0); Mean Corpuscular Volume 90.4 fL (80-94); Mean Platelet Vol. 9.7 fl (6.2-12.0); Platelet Count 150 K/mm3 (150-450); RBC Distribution Width CV 13.8 % (11.6-14.6); RBC Distribution Width SD 45.8 fl (35.1-43.9); Red Blood Count 5.09 M/mm3 (4.6-6.2); White Blood Count 9.4 K/mm3 (4.4-11.0)
[2024-08-22 12:29] LABS: Anion Gap 6 (5-15); BUN 14 mg/dL (7-18); BUN/Creat Ratio 15.6 RATIO (10-20); Calcium,Total 9.4 mg/dL (8.5-10.1); Chloride 107 mmol/L (98-107); EST Glomerular Filtration Rate 91 mL/min (>60); Est Glom Filt Rate - Afr Amer 110 mL/min (>60); Glucose 90 mg/dL (74-106); Potassium 4.2 mmol/L (3.5-5.1); Sodium Level 140 mmol/L (136-145)
== END | disposition home or self-care (01) ==
LOC: LAB 11:12
PROVIDERS: PCP Family Medicine; Referring Provider Otolaryngology; Visit Provider Otolaryngology
DX: Z01.818 Encounter for other preprocedural examination (principal)
CPT/HCPCS: 36415; 80048; 85027

== ENCOUNTER → 2024-10-31 | Outpatient (CLI) | payer OTHER, SELFPAY ==
--- NOTE | 2024-10-31 12:11 | CT_ITS ---
PROCEDURE: LOW DOSE CT LUNG SCREENING 10/31/2024 REASON FOR EXAM: COPD, HX SMOKING TECHNIQUE: Low Dose CT Lung screening without contrast. Coronal and Sagittal reconstruction series were provided. One or more dose reduction techniques were used (e.g., Automated exposure control, adjustment of the mA and/or kV according to patient size, use of iterative reconstruction technique). REFERENCE LINK: [employer] Lung-RADS COMPARISON: None. FINDINGS: PULMONARY NODULES: (Only nodules >3mm are reported) Nodules described below are on series unless otherwise specified. Pulmonary Nodules: None Hardware:None Lymph Nodes:Unremarkable. Heart and Vasculature:No cardiomegaly.Atherosclerotic calcifications of the thoracic aorta. Thoracic aorta and pulmonary arteries have normal contours; noncontrast technique limits evaluation. Coronary Artery Calcifications: Present Lungs and Airways: Mild bilateral apical scarring. Mild emphysema. No change in scarring in the anterior left upper lobe. No noncalcified nodule or mass. Pleura:No pleural effusion. Upper Abdomen:Unremarkable. Bones:Unremarkable. CT/Low Dose CT Lung Screening IMPRESSION: No pulmonary nodule. Coronary artery calcification (CAC) is is present Lung-RADS Category: 1 NEGATIVE. RECOMMEND 12-MONTH SCREENING LDCT. Other Significant Findings: None. Reading Location: [id number]
== END | disposition home or self-care (01) ==
LOC: CT 12:11
PROVIDERS: PCP Family Medicine; Referring Provider Internal Medicine Pulmonary Disease; Visit Provider Internal Medicine Pulmonary Disease
DX: J44.9 Chronic obstructive pulmonary disease, unspecified (principal); Z87.891 Personal history of nicotine dependence
CPT/HCPCS: 71271